=== PATIENT | female | born 1940 | race Caucasian/White ===

== ENCOUNTER → 2017-12-04 11:20 | Outpatient (CLI) | payer MEDICARE, BC, SELFPAY ==
[2017-12-04 12:58] LABS: Absolute Lymphocyte Count 1.28 X10^3/ul (0.83-4.51); Absolute Neutrophil Count 3.3 X10^3/uL (2.0-7.7); Basophil# 0.04 X10^3/uL; Basophil% 0.8 % (0-1); Eosinophil# 0.02 X10^3/uL; Eosinophils% 0.4 % (0-5); Hemoglobin 12.2 g/dl (12.0-15.0); Lymphocyte # 1.28 X10^3/ul (4.0); Lymphocyte % 25.3 % (19-41); Mean Corp Hgb Conc 33.9 g/gl (32-36); Mean Corpuscular Hgb 31.6 pg (27.0-32.0); Mean Corpuscular Volume 93.3 fL (81-99); Mean Platelet Vol. 10.7 fl (6.2-12.0); Monocyte# 0.38 X10^3/uL; Monocyte% 7.5 % (0-10); Neutrophil # 3.34 X10^3/uL (2.7-7.7); POSITIVE COUNT NO; POSITIVE DIFFERENTIAL NO; POSITIVE MORPHOLOGY NO; Platelet Count 183 K/mm3 (150-450); RBC Distribution Width CV 12.9 % (11.6-14.6); Red Blood Count 3.86 M/mm3 (4.2-5.4); White Blood Count 5.1 K/mm3 (4.4-11.0)
[2017-12-04 13:22] LABS: ALB/GLOB Ratio 1.2 RATIO (0.9-2.4); AST(SGOT) 27 U/L (15-37); Alanine Aminotransfer ALT/SGPT 28 U/L (13-56); Albumin, Serum 3.7 g/dL (3.2-5.0); Alkaline Phosphatase 77 U/L (45-117); Anion Gap 7 (5-15); BUN 27 mg/dL (7-18); BUN/Creat Ratio 37.9 RATIO (10-20); Calcium,Total 8.6 mg/dL (8.5-10.1); Chloride 105 mmol/L (98-107); Creatinine, Serum 0.71 mg/dL (0.55-1.02); EST Glomerular Filtration Rate 84 mL/min (>60); Est Glom Filt Rate - Afr Amer 102 mL/min (>60); Globulin 3.2 g/dL (2.2-4.2); Glucose 74 mg/dL (74-106); Potassium 3.7 mmol/L (3.5-5.1); Protein, Total 6.9 g/dL (6.4-8.2); Sodium Level 140 mmol/L (136-145); Thyroid Stim Hormone (TSH) 0.71 uIU/mL (0.358-3.74)
[2017-12-05 08:56] LABS: Vitamin D,25 Hydroxy 20.8 ng/mL (29.95-100.01)
== END ==
PROVIDERS: Family Provider Family Medicine Geriatric Medicine; PCP Family Medicine Geriatric Medicine; Visit Provider Family Medicine Geriatric Medicine
DX: I10 Essential (primary) hypertension (principal); E55.9 Vitamin D deficiency, unspecified
CPT/HCPCS: 36415; 80053; 82306; 84443; 85025

== ENCOUNTER → 2017-12-21 12:01 | Outpatient (CLI) | payer MEDICARE, BC, SELFPAY ==
--- NOTE | 2017-12-21 12:11 | RAD_ITS ---
STUDY: X-RAY CHEST REASON FOR EXAM: Female, 77 years old. Chest pain TECHNIQUE: PA and lateral views of the chest. COMPARISON: Prior study of February 17, 2015 FINDINGS: The lungs are clear and expanded. There is no demonstrated pleural abnormality. Normal size heart. Normal mediastinum and kwesi. Normal visualized pulmonary arteries. Normal visualized aortic arch and descending thoracic aorta. There are diffuse degenerative changes of the visualized thoracic spine. Normal visualized ribs, clavicles, and shoulders. There is no demonstrated abnormality of the visualized soft tissue structures of the upper abdomen. RAD/Chest PA and Lateral IMPRESSION: Mild thoracolumbar dextroscoliosis. Mild degenerative changes of the thoracic spine. No acute cardiopulmonary disease process is seen. Electronically Signed: Ernst Ivey MD at 21:14 EDT , Service support ,
[2017-12-21] MEDS: 0.9% Normal Saline 1,000 ML 999 ML IV ×2 (13:00→14:19)
[2017-12-21 13:47] VITALS: BP 109/75; PULSE 83; RESP 16; TEMP 36.8; O2SAT 99
== END ==
PROVIDERS: Family Provider Family Medicine Geriatric Medicine; PCP Family Medicine Geriatric Medicine; Visit Provider Family Medicine Geriatric Medicine
DX: E86.0 Dehydration (principal); R07.9 Chest pain, unspecified; R68.83 Chills (without fever)
CPT/HCPCS: 96360; 96361; 71046; 87633; J7030

== ENCOUNTER → 2017-12-25 11:42 | Outpatient (CLI) | payer MEDICARE, BC, SELFPAY ==
[2017-12-25 13:29] LABS: Absolute Lymphocyte Count 1.46 X10^3/ul (0.83-4.51); Absolute Neutrophil Count 4.8 X10^3/uL (2.0-7.7); Basophil# 0.01 X10^3/uL; Basophil% 0.1 % (0-1); Hematocrit 35.4 % (37-47); Hemoglobin 11.4 g/dl (12.0-15.0); Lymphocyte # 1.46 X10^3/ul (4.0); Lymphocyte % 21.2 % (19-41); Mean Corp Hgb Conc 32.2 g/gl (32-36); Mean Corpuscular Volume 93.2 fL (81-99); Mean Platelet Vol. 10.5 fl (6.2-12.0); Monocyte# 0.64 X10^3/uL; Monocyte% 9.3 % (0-10); Neutrophil # 4.76 X10^3/uL (2.7-7.7); Neutrophil % 69.3 % (47-70); Platelet Count 226 K/mm3 (150-450); RBC Distribution Width CV 13.9 % (11.6-14.6); RBC Distribution Width SD 47.5 fl (35.1-43.9); White Blood Count 6.9 K/mm3 (4.4-11.0)
[2017-12-25 13:30] LABS: POSITIVE COUNT NO; POSITIVE DIFFERENTIAL NO; POSITIVE MORPHOLOGY NO
[2017-12-25 13:57] LABS: ALB/GLOB Ratio 0.9 RATIO (0.9-2.4); AST(SGOT) 37 U/L (15-37); Alanine Aminotransfer ALT/SGPT 57 U/L (13-56); Albumin, Serum 3.4 g/dL (3.2-5.0); Alkaline Phosphatase 73 U/L (45-117); Anion Gap 11 (5-15); BUN 20 mg/dL (7-18); BUN/Creat Ratio 22.6 RATIO (10-20); Calcium,Total 8.6 mg/dL (8.5-10.1); Chloride 103 mmol/L (98-107); Creatinine, Serum 0.88 mg/dL (0.55-1.02); EST Glomerular Filtration Rate 66 mL/min (>60); Est Glom Filt Rate - Afr Amer 80 mL/min (>60); Globulin 3.6 g/dL (2.2-4.2); Glucose 117 mg/dL (74-106); Potassium 3.2 mmol/L (3.5-5.1); Sodium Level 141 mmol/L (136-145); Thyroid Stim Hormone (TSH) 1.06 uIU/mL (0.358-3.74)
[2017-12-26 08:28] LABS: Vitamin D,25 Hydroxy 22.9 ng/mL (29.95-100.01)
== END ==
PROVIDERS: Family Provider Family Medicine Geriatric Medicine; PCP Family Medicine Geriatric Medicine; Visit Provider Family Medicine Geriatric Medicine
DX: N39.0 Urinary tract infection, site not specified (principal); I10 Essential (primary) hypertension; E55.9 Vitamin D deficiency, unspecified
CPT/HCPCS: 36415; 80053; 82306; 84443; 85025; 87086

== ENCOUNTER → 2017-12-25 11:55 | Outpatient (CLI) | payer MEDICARE, BC, SELFPAY ==
--- NOTE | 2017-12-25 11:58 | CT_ITS ---
STUDY: CT BRAIN WITHOUT CONTRAST REASON FOR EXAM: Female, 77 years old. Delirium. Orbital pain. RADIATION DOSAGE (If Supplied By Facility): CTDIvol = ( 44.99 ) mGy, DLP = ( 779.24 ) mGycm TECHNIQUE: Transaxial CT imaging of the brain was performed without administration of intravenous contrast material. Individualized dose optimization techniques were used for this CT. COMPARISON: None. FINDINGS: Normal soft tissue structures. Normal calvarium. There is mild cerebral atrophy with widening of the extra-axial spaces and ventricular dilatation. There are areas of decreased attenuation within the white matter tracts of the supratentorial brain, consistent with microvascular disease changes. Old small bilateral lacunar infarcts of the basal ganglia. Normal brainstem. Normal cerebellum. There is no intracranial hemorrhage. There are no findings of an acute ischemic infarction. Atherosclerotic calcification of the vertebral arteries and cavernous portions of the internal carotid arteries bilaterally. Normal visualized paranasal sinuses. Prior right lens implants. Mild mucosal thickening of the right maxillary sinus. CT/Brain/Head without Contrast IMPRESSION: Chronic involutional changes of the brain. Electronically Signed: Jani Bardales MD at 12:26 EDT Tel [phone], Service support ,
== END ==
PROVIDERS: Family Provider Family Medicine Geriatric Medicine; PCP Family Medicine Geriatric Medicine; Visit Provider Family Medicine Geriatric Medicine
DX: R41.0 Disorientation, unspecified (principal); N39.0 Urinary tract infection, site not specified; I10 Essential (primary) hypertension; E55.9 Vitamin D deficiency, unspecified
CPT/HCPCS: 36415; 70450; 80053; 82306; 84443; 85025; 87086

== ENCOUNTER → 2018-01-04 11:24 | Outpatient (CLI) | payer MEDICARE, BC, SELFPAY ==
[2018-01-04 13:06] LABS: Anion Gap 9 (5-15); BUN 27 mg/dL (7-18); Chloride 105 mmol/L (98-107); Creatinine, Serum 1.08 mg/dL (0.55-1.02); EST Glomerular Filtration Rate 52 mL/min (>60); Est Glom Filt Rate - Afr Amer 63 mL/min (>60); Glucose 105 mg/dL (74-106); Potassium 4.1 mmol/L (3.5-5.1); Sodium Level 140 mmol/L (136-145)
== END ==
PROVIDERS: Family Provider Family Medicine Geriatric Medicine; PCP Family Medicine Geriatric Medicine; Visit Provider Family Medicine Geriatric Medicine
DX: E87.6 Hypokalemia (principal)
CPT/HCPCS: 36415; 80048

== ENCOUNTER 2018-07-22 17:54 | Observation (INO) | payer MEDICARE, BC, SELFPAY ==
[2018-07-22] VITALS (8 sets, daily range): BP systolic 105–155; BP diastolic 69–95; PULSE 53–77; RESP 15–24; TEMP 36.2–36.4; O2SAT 98–99; BMI 22.6; BMI 22.8
--- NOTE | 2018-07-22 17:58 | EKG12_ITS ---
Test Reason : Blood Pressure : / mmHG Vent. Rate : 054 BPM Atrial Rate : 054 BPM P-R Int : 156 ms QRS Dur : 086 ms QT Int : 416 ms P-R-T Axes : 048 017 064 degrees QTc Int : 394 ms Sinus bradycardia Otherwise normal ECG Confirmed by GENE PETTIT, PADMINI ([id number]), editorial director SARAH AGUDELO ([id number] on 07/24/2018 1:56:50 PM Referred By: THA Confirmed By:PADMINI IMLLS MD
[2018-07-22 18:27] LABS: Absolute Lymphocyte Count 1.84 X10^3/ul (0.83-4.51); Absolute Neutrophil Count 1.9 X10^3/uL (2.0-7.7); Basophil# 0.04 X10^3/uL; Basophil% 0.9 % (0-1); Eosinophil# 0.05 X10^3/uL; Eosinophils% 1.2 % (0-5); Hematocrit 37.2 % (37-47); Lymphocyte # 1.84 X10^3/ul (4.0); Lymphocyte % 43.5 % (19-41); Mean Corp Hgb Conc 32.3 g/gl (32-36); Mean Corpuscular Hgb 30.1 pg (27.0-32.0); Mean Corpuscular Volume 93.2 fL (81-99); Monocyte# 0.42 X10^3/uL; Monocyte% 9.9 % (0-10); Neutrophil # 1.88 X10^3/uL (2.7-7.7); Neutrophil % 44.5 % (47-70); POSITIVE COUNT NO; POSITIVE DIFFERENTIAL NO; POSITIVE MORPHOLOGY NO; Platelet Count 216 K/mm3 (150-450); RBC Distribution Width CV 13.4 % (11.6-14.6); RBC Distribution Width SD 45.7 fl (35.1-43.9); Red Blood Count 3.99 M/mm3 (4.2-5.4); White Blood Count 4.2 K/mm3 (4.4-11.0)
[2018-07-22 18:34] LABS: International Normalized Ratio 0.9; Prothrombin Time (Protime)PT. 11.8 SECONDS (11.7-14.9)
--- NOTE | 2018-07-22 18:40 | RAD_ITS ---
STUDY: X-RAY CHEST REASON FOR EXAM: Female, 78 years old. Chest pain TECHNIQUE: Frontal view of the chest COMPARISON: 04/23/2018 FINDINGS: The lungs are clear. There are no pleural effusions. There is no pneumothorax. The heart is normal in size. The visualized osseous structures are within normal limits. RAD/Chest 1 View (Portable) IMPRESSION: No acute thoracic pathology. Electronically Signed: Jonh Singh, at 19:11 EST Tel , Service support ,
[2018-07-22 18:48] LABS: Anion Gap 11 (5-15); BUN 21 mg/dL (7-18); BUN/Creat Ratio 27.2 RATIO (10-20); Calcium,Total 9.6 mg/dL (8.5-10.1); Chloride 101 mmol/L (98-107); Creatinine, Serum 0.77 mg/dL (0.55-1.02); EST Glomerular Filtration Rate 77 mL/min (>60); Est Glom Filt Rate - Afr Amer 93 mL/min (>60); Glucose 83 mg/dL (74-106); Potassium 3.4 mmol/L (3.5-5.1); Sodium Level 142 mmol/L (136-145)
[2018-07-22] MEDS: Aspirin 81 MG TAB.CHEW 162 MG PO (19:12)
--- NOTE | 2018-07-22 19:37 | ED.VISSUMM ---
- ER Visit Summary Date of Service: 07/22/18 Chief Complaint: Chest pain History of Present Illness: The patient is a 78 F chest pain 30 minutes prior to arrival states felt like heartburn.. No radicular symptoms. Dyspnea lightheaded symptoms. Symptoms currently resolved stress test in 2014. History of hypertension. No tobacco history. No diabetes or hypercholesteremia. History of GERD, depression, fibromyalgia. States has trouble urinating at times. No dysuria. Currently symptom-free Physical Examination: General: Alert and oriented ?3, no acute distress HEENT: Normocephalic, atraumatic. Moist mucosa membranes Neck: supple, nontender. Cardiovascular: Regular rate and rhythm, no murmurs Respiratory: Normal breath sounds, symmetric, no distress Abdomen: Soft, nontender, nondistended Extremities: Nontender, no edema, pulses intact ?4 Neuro: no focal neurological deficits. Test Results: EKG sinus rate of [address] or T wave changes Hemoccult 12. Potassium 2.4. Troponin negative. UA pending. Chest x-ray negative. Emergency Department Course and Treatment: Patient symptom-free. Aspirin given. Cardiac workup negative potassium was 3.4 orally replaced. She is alert and oriented x3. Symptoms continue resolved. Heart score is 4, HILLARY score 1. Discussed with hospitalist Dr. Whitmore for admission. Treatment Plan: [] Disposition: Admission Impression: 1. Acute chest pain 2. Hypokalemia This note was generated with Nabto dictation software. It may contain incorrect words, spelling, and punctuation that were not noted in review of the chart prior to signing ED Disposition - Plan for ED Patient: Disposition: Acute Care Hospital [facility] Diagnosis: Chest pain, Hypokalemia Referrals: Rashid James Chi, MD [Primary Care Provider] -
[2018-07-22 19:40] LABS: Bacteria 0 SEEN /hpf (None Seen); Mucous, Urine 0 SEEN /hpf (<or=2+); Red Blood Cells-Urine 0 SEEN /hpf (0-5)
[2018-07-22 19:43] LABS: Color, Urine Yellow (Yellow); Glucose, Dipstick Normal (Normal); Ketone-Dipstick Negative (Negative); Leukocyte Esterase-Dipstick 100 /ul (Negative); Nitrite-Dipstick Negative (Negative); Occult Blood-Urine Negative /ul (Negative); Protein-Dipstick Negative (Negative); Urine Bilirubin Dipstick Negative (Negative); Urine Urobilinogen Normal (Normal)
[2018-07-22 19:51] LABS: Squamous Epithelial Cells - UA 0-5 SEEN /hpf (5-10); Urine Clarity Sl Cldy (Clear); White Blood Cells 5-10 SEEN /hpf (0-5)
--- NOTE | 2018-07-22 19:59 | HP.PCM_ITS ---
Problem List (1) Hypokalemia Status: Acute (2) Chest pain Status: Acute (3) HTN (hypertension) Status: Chronic (4) Depression Status: Chronic History of Present Illness Date of Admission: 07/22/18 Chief Complaint: chest pain The patient is a 78 year old female patient with a past medical history of hypertension presents to the ER with chest pain. Onset occurred earlier in the evening and was midsternal non radiating and described as significant pain. She has had some associated lightheadedness and dizziness. She is currently chest pain free. Last stress test was done in 2014 and was negative. She will be admitted for observation and cardiac workup. Past Medical History Past Medical History (Chronic Problems): Chronic Problems HTN (hypertension) (Chronic) Depression (Chronic) Allergies No Known Allergies Allergy (Verified 07/22/18 19:21) Home Medications: Ambulatory Orders Medication Instructions Recorded Cholecalciferol (VIT D3) [Vitamin 1,000 unit PO DAILY 02/17/15 D3] Lisinopril [Zestril] 10 mg PO DAILY 02/17/15 Oxybutynin [Ditropan] 10 mg PO DAILY 02/17/15 [place]-3 Fatty Acids/Fish Oil [Fish 1 each PO DAILY 05/06/15 Oil 1,000 mg Capsule] Fluoxetine HCl 10 mg PO DAILY 07/22/18 Surgical History: herniorrhaphy Psychiatric History: Depression Smoking Status: Never smoker - *Family History Paternal History Items: No pertinent history - of old age Maternal History Items: Dementia Review of Systems Constitutional: Denies: Chills, Fever, Weight Change HEENT: Denies: Head Aches, Sinus Congestion, Sinus Drainage Cardiovascular: Reports: Chest Pain. Denies: Palpitations Respiratory: Denies: Cough, Shortness of breath at rest, Sputum production Gastrointestinal: Denies: Abdominal Pain, Nausea, Vomiting Genitourinary: Denies: Dysuria Musculoskeletal: Denies: Joint Pain, Joint Tenderness Skin: Denies: Rash, Wounds Neurological: Denies: Numbness, Tingling, Focal weakness Psychiatric: Denies: Anxiety, Depression, Homicidal Ideations, Suicidal Ideations Hematologic/ Lymphatic: Denies: Easy Bruising, Easy Bleeding VTE Information - Inpt Only VTE Present on Admission: No VTE Mechan Device Prophylaxis: None VTE Pharm Prophylaxis ordered?: Yes Patient Problems: Active and Suspected Problems Hypokalemia (Acute) Chest pain (Acute) - Physical Exam General: Alert, Oriented x3, Cooperative HEENT: Atraumatic, Normocephalic Neck: Supple, Negative Carotid Bruits Lungs: Clear to auscultation, Normal air movement Cardiovascular: Regular rate, Regular Rhythm, Normal S1, Normal S2, No murmurs Abdomen: Bowel Sounds Present, Soft, Non Tender Extremities: No edema, Capillary Refill Less than 3 Seconds Skin: No rashes Musculoskeletal: No Tenderness to Palpation of Joints or Extremities Neurological: Neuro grossly intact Psych/Mental Status: Normal Affect, Appropriate Vital Signs Temp Pulse Resp BP Pulse Ox 97.2 F L 73 24 H 153/94 H 98 07/22/18 17:55 07/22/18 19:13 07/22/18 19:13 07/22/18 19:13 07/22/18 19:13 Oxygen Flow Rate (L/min) 2 Oxygen Delivery Method Room Air Weight: 116 lb Body Mass Index (BMI) 22.6 Laboratory Tests Past 24 Hrs 07/22/18 07/22/18 07/22/18 18:15 18:15 18:15 WBC 4.2 L RBC 3.99 L Hgb 12.0 Hct 37.2 MCV 93.2 MCH 30.1 MCHC 32.3 RDW 13.4 RDW Differential 45.7 H Plt Count 216 MPV 10.0 Immature Gran % (Auto) 0.000 Neut % (Auto) 44.5 L Lymph % (Auto) 43.5 H [place] % (Auto) 9.9 Eos % (Auto) 1.2 Baso % (Auto) 0.9 Absolute Neuts (auto) 1.9 L Absolute Lymphs (auto) 1.84 Total Counted Not Reportable PT 11.8 INR 0.9 Sodium 142 Potassium 3.4 L Chloride 101 Carbon Dioxide 30.0 Anion Gap 11 BUN 21 H Creatinine 0.77 Estim Creat Clear Calc 33.30 Est GFR (MDRD) Af Amer 93 Est GFR (MDRD) Non-Af 77 BUN/Creatinine Ratio 27.2 H Glucose 83 Calcium 9.6 Troponin I < 0.015 Urine Color Urine Clarity Urine pH Ur Specific [place] Urine Protein Urine Glucose (UA) Urine Ketones Urine Occult Blood Urine Nitrite Urine Bilirubin Urine Urobilinogen Ur Leukocyte Esterase Urine RBC Urine WBC Ur Squamous Epith Cells Urine Bacteria Urine Mucus 07/22/18 19:25 WBC RBC Hgb Hct MCV MCH MCHC RDW RDW Differential Plt Count MPV Immature Gran % (Auto) Neut % (Auto) Lymph % (Auto) [place] % (Auto) Eos % (Auto) Baso % (Auto) Absolute Neuts (auto) Absolute Lymphs (auto) Total Counted PT INR Sodium Potassium Chloride Carbon Dioxide Anion Gap BUN Creatinine Estim Creat Clear Calc Est GFR (MDRD) Af Amer Est GFR (MDRD) Non-Af BUN/Creatinine Ratio Glucose Calcium Troponin I Urine Color Yellow Urine Clarity Sl Cldy Urine pH 7.0 Ur Specific [place] 1.010 Urine Protein Negative Urine Glucose (UA) Normal Urine Ketones Negative Urine Occult Blood Negative Urine Nitrite Negative Urine Bilirubin Negative Urine Urobilinogen Normal Ur Leukocyte Esterase 100 H Urine RBC 0 SEEN Urine WBC 5-10 SEEN Ur Squamous Epith Cells 0-5 SEEN Urine Bacteria 0 SEEN Urine Mucus 0 SEEN Assessment/Plan All Active Problems Hypokalemia (Acute) Chest pain (Acute) Chronic Problems HTN (hypertension) (Chronic) Depression (Chronic) Plan 1. Chest Pain-- admit for observation to PCU, cycle cardiac enzymes, nuclear stress test in am. Morphine, oxygen and nitroglycerin per routine 2. GERD-- cont PPI 3. Depression -- continue routine medication 4. DVT prophylaxis-- LMWH Code Visit OBSV E&M: 55294 Initial observation care L2
[2018-07-22] MEDS: Omega-3 Acid Ethyl Esters 1 GM Capsule PO (23:14)
[2018-07-23] VITALS (7 sets, daily range): BP systolic 110–137; BP diastolic 54–68; PULSE 54–89; RESP 16–18; TEMP 36.2–37; O2SAT 95–97
[2018-07-23 05:25] LABS: Mean Corp Hgb Conc 32.4 g/gl (32-36); Mean Corpuscular Hgb 30.5 pg (27.0-32.0); Mean Corpuscular Volume 94.2 fL (81-99); Mean Platelet Vol. 10.3 fl (6.2-12.0); Platelet Count 192 K/mm3 (150-450); RBC Distribution Width CV 13.1 % (11.6-14.6); RBC Distribution Width SD 43.3 fl (35.1-43.9); Red Blood Count 3.61 M/mm3 (4.2-5.4); White Blood Count 4.3 K/mm3 (4.4-11.0)
[2018-07-23 05:26] LABS: Scan Indicated on CBC? Y/N NO
[2018-07-23 05:27] LABS: International Normalized Ratio 0.9; Prothrombin Time (Protime)PT. 12.5 SECONDS (11.7-14.9)
[2018-07-23 05:28] LABS: Partial Thromboplast Time 29.8 Seconds (24.1-36.2)
[2018-07-23 05:35] LABS: AST(SGOT) 24 U/L (15-37); Alanine Aminotransfer ALT/SGPT 27 U/L (13-56); Albumin, Serum 3.1 g/dL (3.2-5.0); Alkaline Phosphatase 74 U/L (45-117); Anion Gap 8 (5-15); BUN 21 mg/dL (7-18); Calcium,Total 8.5 mg/dL (8.5-10.1); Chloride 107 mmol/L (98-107); Cholesterol 194 mg/dL (200); EST Glomerular Filtration Rate 86 mL/min (>60); Est Glom Filt Rate - Afr Amer 104 mL/min (>60); Estimated Creatinine Clearance 37.55 ml/min; Globulin 3.1 g/dL (2.2-4.2); Glucose 86 mg/dL (74-106); High Density Lipoprotein 82 mg/dL; Potassium 4.1 mmol/L (3.5-5.1); Protein, Total 6.2 g/dL (6.4-8.2); Sodium Level 143 mmol/L (136-145); Triglycerides 55 mg/dL; Very Low Density Lipoprotein 11 mg/dL (5-40)
--- NOTE | 2018-07-23 05:55 | EKG12_ITS ---
Test Reason : AM EKG Blood Pressure : / mmHG Vent. Rate : 054 BPM Atrial Rate : 054 BPM P-R Int : 166 ms QRS Dur : 084 ms QT Int : 420 ms P-R-T Axes : 047 025 043 degrees QTc Int : 398 ms Sinus bradycardia Otherwise normal ECG When compared with ECG of 22-JUL-2018 20:45, MANUAL COMPARISON REQUIRED, DATA IS UNCONFIRMED Confirmed by GENE PETTIT, PADMINI ([id number]), editor publications SARAH AGUDELO ([id number]) on 07/24/2018 2:09:31 PM Referred By: EDUARDO YOUNGBLOOD Confirmed By:PADMINI MILLS MD
[2018-07-23] MEDS: Lisinopril 10 MG Tablet PO (06:26)
[2018-07-23] MEDS: Aspirin E.C. 81 MG Tablet PO (06:26)
[2018-07-23] MEDS: 0.9% NaCl Peripheral Flush Adult/Peds IV (06:26)
--- NOTE | 2018-07-23 08:57 | STRESSREP ---
Stress Test Report Exercise myocardial perfusion stress test. 78-year-old lady with a history of chest pain. Medications aspirin, lisinopril, Protonix. Stress protocol: Resting EKG demonstrates sinus bradycardia with a rate of 53 bpm resting blood pressure 128/74 mmHg. The patient exercised according to regular [place] protocol for total duration of 4 minutes and 30 seconds the maximum heart rate attained was 141 bpm which was 99% of maximum predicted heart rate the maximum workload was 6.4 metabolic equivalents. At rest there were no ST or T wave changes noted suggest ischemia peak exercise upsloping ST changes only were noted with normally the criteria for ischemia. Resting blood pressure 128/74 with a peak blood pressure 142/88. Myocardial perfusion protocol. 11.2 mCi of technetium 99m sestamibi was injected at rest. Patient exercised for 4-1/2 minutes at peak exercise 32.1 mCi of technetium 99m sestamibi was injected stress images were obtained stress and rest images were reconstructed and compared in the short axis vertical long horizontal long axis. Gated images were also obtained next Perfusion SPECT analysis: Review of the stress images demonstrate normal uptake of tracer noted in all areas of the myocardium. The resting images similarly demonstrate normal uptake of tracer noted in all areas of the myocardium. No reversibility is noted suggest ischemia no previous infarct is noted. Gated SPECT analysis: The gated ejection fraction is noted to be 77% per next Conclusion: Normal exercise myocardial perfusion stress test at a moderate workload. Preserved ejection fraction.
[2018-07-23] MEDS: Enoxaparin 40 MG/0.4 ML Syringe SC (09:27)
[2018-07-23] MEDS: Tolterodine Tartrate 2 MG CAP.SA PO (09:27)
[2018-07-23] MEDS: FLUoxetine 10 MG Capsule PO (09:27)
[2018-07-23] MEDS: Pantoprazole Sodium 40 MG Tablet PO (09:27)
[2018-07-23] MEDS: Omega-3 Acid Ethyl Esters 1 GM Capsule PO (09:28)
--- NOTE | 2018-07-23 10:55 | PCM.DC ---
- Discharge Diagnoses Current Active Problems: Current Active and Chronic Problems Hypokalemia (Acute) Chest pain (Acute) You will use the following diet at home:: No restrictions Discharge Activity: Return to Normal Activity Call your doctor if you observe: Shortness of breath, Dizziness, Fainting spells, Chest pain Additional Instructions: You were started on zantac in addition to your omeprazole due to uncontrolled acid reflux. This can be increased in dosage by primary care physician if still not effective. You can take tylenol or ibuprofen over the counter for musculoskeletal chest discomfort. Allergies/Adverse Reactions: Allergies No Known Allergies Allergy (Verified 07/22/18 19:21) Medications to take at Discharge Cholecalciferol (VIT D3) [Vitamin D3] 5,000 unit PO DAILY 02/17/15 Lisinopril [Zestril] 10 mg PO DAILY 02/17/15 Oxybutynin [Ditropan] 10 mg PO DAILY 02/17/15 [place]-3 Fatty Acids/Fish Oil [Fish Oil 1,000 mg Capsule] 1 each PO BID 05/06/15 Fluoxetine HCl 10 mg PO DAILY 07/22/18 Omeprazole 40 mg PO DAILY 07/22/18 Ranitidine HCl [Zantac 75] 75 mg PO DAILY #30 tablet 07/23/18 The following prescriptions were given: Ranitidine HCl [Zantac 75] 75 mg PO DAILY #30 tablet Primary Care Physician: Rashid James Chi, MD [Primary Care Provider] - Please follow up with your Primary Care Physician in: 1 Week Test Results: Test results from this visit will be discussed in further detail at your follow-up appointment, if applicable. Proposed Discharge Date: 07/23/18
--- NOTE | 2018-07-23 10:59 | DCINST_ITS ---
- Discharge Diagnoses Current Active Problems: Current Active and Chronic Problems Hypokalemia (Acute) Chest pain (Acute) You will use the following diet at home:: No restrictions Discharge Activity: Return to Normal Activity Call your doctor if you observe: Shortness of breath, Dizziness, Fainting spells, Chest pain Additional Instructions: You were started on zantac in addition to your omeprazole due to uncontrolled acid reflux. This can be increased in dosage by primary care physician if still not effective. You can take tylenol or ibuprofen over the counter for musculoskeletal chest discomfort. Allergies/Adverse Reactions: Allergies No Known Allergies Allergy (Verified 07/22/18 19:21) Medications to take at Discharge Cholecalciferol (VIT D3) [Vitamin D3] 5,000 unit PO DAILY 02/17/15 Lisinopril [Zestril] 10 mg PO DAILY 02/17/15 Oxybutynin [Ditropan] 10 mg PO DAILY 02/17/15 [place]-3 Fatty Acids/Fish Oil [Fish Oil 1,000 mg Capsule] 1 each PO BID 05/06/15 Fluoxetine HCl 10 mg PO DAILY 07/22/18 Omeprazole 40 mg PO DAILY 07/22/18 Ranitidine HCl [Zantac 75] 75 mg PO DAILY #30 tablet 07/23/18 The following prescriptions were given: Ranitidine HCl [Zantac 75] 75 mg PO DAILY #30 tablet Primary Care Physician: Rashid James Chi, MD [Primary Care Provider] - Please follow up with your Primary Care Physician in: 1 Week Test Results: Test results from this visit will be discussed in further detail at your follow- up appointment, if applicable. Proposed Discharge Date: 07/23/18
--- NOTE | 2018-07-23 11:09 | DS.PCM_ITS ---
<Kamila Jernigan - Last Filed: 07/23/18 11:11> Discharge Date and Diagnosis - Problem List Patient Problems: Active and Suspected Problems Chest pain (Acute) Date of Admission: 07/22/18 Date of Discharge: 07/23/18 - Primary Discharge Diagnosis Active and Suspected Problems 1. Musculoskeletal chest pain vs uncontrolled GERD- ACS ruled out 2. GERD 3. Hypertension 4. Depression - Secondary Discharge Diagnosis Chronic Problems HTN (hypertension) (Chronic) Depression (Chronic) Hospital Course and Treatment Imaging Results: Diagnostic Data Chest X-Ray 07/22/18 18:40 IMPRESSION: No acute thoracic pathology. Electronically Signed: Jonh Singh, at 19:11 EST Tel , Service support , Operations: None Procedures: Stress test Summary of Care Provided: The patient is a 78 year old F admitted 07/22/18 due to chest pain. 1. Musculoskeletal chest pain vs uncontrolled GERD- ACS ruled out. Troponin negative. EKG without ST-T changes. Chest x-ray negative. Patient underwent nuclear stress test which was negative for ischemia. Patient has tenderness to palpation of the center of the chest. Suspect pain is musculoskeletal in nature. Instructed patient she can use Tylenol or ibuprofen as needed for pain. Patient also reports she has had difficulty with acid reflux. She states she is on omeprazole 40 mg once daily and it does not work. Added Zantac 75 mg daily to home regimen. This can be increased on an outpatient basis. If effective, can discontinue PPI. Follow-up with primary care physician in 1 week. 2. GERD-continue PPI, Zantac added as noted above. 3. Hypertension-stable, continue home lisinopril regimen. 4. Depression-continue fluoxetine regimen. General: Alert, Oriented x3, Cooperative HEENT: Atraumatic, Normocephalic Neck: Supple, Negative Carotid Bruits Lungs: Clear to auscultation, Normal air movement Cardiovascular: Regular rate, Regular Rhythm, Normal S1, Normal S2, No murmurs Abdomen: Bowel Sounds Present, Soft, Non Tender Extremities: No edema, Capillary Refill Less than 3 Seconds Skin: No rashes Musculoskeletal: No Tenderness to Palpation of Joints or Extremities Neurological: Neuro grossly intact Psych/Mental Status: Normal Affect, Appropriate Patient seen and examined prior to discharge. Physical assessment as noted above. Patient is stable for discharge with follow up recommendations as noted above. This patient was seen by CHUCKIE Muniz under the supervision of Dr. Singh. Patient Problems: Active and Suspected Problems Chest pain (Acute) - Physical Exam Vital Signs Temp Pulse Resp BP Pulse Ox 97.8 F 59 L 16 110/65 97 07/23/18 09:23 07/23/18 09:23 07/23/18 09:23 07/23/18 09:23 07/23/18 09:23 Oxygen Flow Rate (L/min) 2 Oxygen Delivery Method Room Air Weight: 113 lb 1.554 oz Body Mass Index (BMI) 22.8 Intake and Output for Last 24 Hours 07/21/18 07/22/18 07/23/18 23:59 23:59 23:59 Intake Total 360 / 360 Balance 360 / 360 Laboratory Tests Past 24 Hrs 07/22/18 07/22/18 07/22/18 18:15 18:15 18:15 WBC 4.2 L RBC 3.99 L Hgb 12.0 Hct 37.2 MCV 93.2 MCH 30.1 MCHC 32.3 RDW 13.4 RDW Differential 45.7 H Plt Count 216 MPV 10.0 Immature Gran % (Auto) 0.000 Neut % (Auto) 44.5 L Lymph % (Auto) 43.5 H [place] % (Auto) 9.9 Eos % (Auto) 1.2 Baso % (Auto) 0.9 Absolute Neuts (auto) 1.9 L Absolute Lymphs (auto) 1.84 Total Counted Not Reportable PT 11.8 INR 0.9 APTT Sodium 142 Potassium 3.4 L Chloride 101 Carbon Dioxide 30.0 Anion Gap 11 BUN 21 H Creatinine 0.77 Estim Creat Clear Calc 33.30 Est GFR (MDRD) Af Amer 93 Est GFR (MDRD) Non-Af 77 BUN/Creatinine Ratio 27.2 H Glucose 83 Calcium 9.6 Total Bilirubin AST ALT Alkaline Phosphatase Troponin I < 0.015 Total Protein Albumin Globulin Albumin/Globulin Ratio Triglycerides Cholesterol LDL Cholesterol VLDL Cholesterol HDL Cholesterol Urine Color Urine Clarity Urine pH Ur Specific [place] Urine Protein Urine Glucose (UA) Urine Ketones Urine Occult Blood Urine Nitrite Urine Bilirubin Urine Urobilinogen Ur Leukocyte Esterase Urine RBC Urine WBC Ur Squamous Epith Cells Urine Bacteria Urine Mucus 07/22/18 07/22/18 07/23/18 19:25 20:47 00:10 WBC RBC Hgb Hct MCV MCH MCHC RDW RDW Differential Plt Count MPV Immature Gran % (Auto) Neut % (Auto) Lymph % (Auto) [place] % (Auto) Eos % (Auto) Baso % (Auto) Absolute Neuts (auto) Absolute Lymphs (auto) Total Counted PT INR APTT Sodium Potassium Chloride Carbon Dioxide Anion Gap BUN Creatinine Estim Creat Clear Calc Est GFR (MDRD) Af Amer Est GFR (MDRD) Non-Af BUN/Creatinine Ratio Glucose Calcium Total Bilirubin AST ALT Alkaline Phosphatase Troponin I < 0.015 < 0.015 Total Protein Albumin Globulin Albumin/Globulin Ratio Triglycerides Cholesterol LDL Cholesterol VLDL Cholesterol HDL Cholesterol Urine Color Yellow Urine Clarity Sl Cldy Urine pH 7.0 Ur Specific [place] 1.010 Urine Protein Negative Urine Glucose (UA) Normal Urine Ketones Negative Urine Occult Blood Negative Urine Nitrite Negative Urine Bilirubin Negative Urine Urobilinogen Normal Ur Leukocyte Esterase 100 H Urine RBC 0 SEEN Urine WBC 5-10 SEEN Ur Squamous Epith Cells 0-5 SEEN Urine Bacteria 0 SEEN Urine Mucus 0 SEEN 07/23/18 07/23/18 07/23/18 05:00 05:00 05:00 WBC 4.3 L RBC 3.61 L Hgb 11.0 L Hct 34.0 L MCV 94.2 MCH 30.5 MCHC 32.4 RDW 13.1 RDW Differential 43.3 Plt Count 192 MPV 10.3 Immature Gran % (Auto) Neut % (Auto) Lymph % (Auto) [place] % (Auto) Eos % (Auto) Baso % (Auto) Absolute Neuts (auto) Absolute Lymphs (auto) Total Counted PT 12.5 INR 0.9 APTT 29.8 Sodium 143 Potassium 4.1 Chloride 107 Carbon Dioxide 28.0 Anion Gap 8 BUN 21 H Creatinine 0.70 Estim Creat Clear Calc 37.55 Est GFR (MDRD) Af Amer 104 Est GFR (MDRD) Non-Af 86 BUN/Creatinine Ratio 30.0 H Glucose 86 Calcium 8.5 Total Bilirubin 0.30 AST 24 ALT 27 Alkaline Phosphatase 74 Troponin I Total Protein 6.2 L Albumin 3.1 L Globulin 3.1 Albumin/Globulin Ratio 1.0 Triglycerides 55 Cholesterol 194 LDL Cholesterol 101 VLDL Cholesterol 11 HDL Cholesterol 82 Urine Color Urine Clarity Urine pH Ur Specific [place] Urine Protein Urine Glucose (UA) Urine Ketones Urine Occult Blood Urine Nitrite Urine Bilirubin Urine Urobilinogen Ur Leukocyte Esterase Urine RBC Urine WBC Ur Squamous Epith Cells Urine Bacteria Urine Mucus Discharge Diet: No Restrictions Discharge Activity: Return to Normal Activity Call your doctor if you observe: Shortness of breath, Dizziness, Fainting spells, Chest pain Home Medications: Medications to take at Discharge Cholecalciferol (VIT D3) [Vitamin D3] 5,000 unit PO DAILY 02/17/15 Lisinopril [Zestril] 10 mg PO DAILY 02/17/15 Oxybutynin [Ditropan] 10 mg PO DAILY 02/17/15 [place]-3 Fatty Acids/Fish Oil [Fish Oil 1,000 mg Capsule] 1 each PO BID 05/06/15 Fluoxetine HCl 10 mg PO DAILY 07/22/18 Omeprazole 40 mg PO DAILY 07/22/18 Ranitidine HCl [Zantac 75] 75 mg PO DAILY #30 tablet 07/23/18 Following Prescrptions Were Given to Patient: Ranitidine HCl [Zantac 75] 75 mg PO DAILY #30 tablet Primary Care Physician: Rashid James Chi, MD [Primary Care Provider] - Please follow up with your Primary Care Physician in: 1 Week Disposition: Home Minutes spent on discharge:: 35 Patient Condition:: Stable Medical Necessity - Tobacco Use Smoking Status: Never smoker Meaningful Use Info Meaningful Use Diagnoses (Choose all that apply): None applicable <Mitul Singh - Last Filed: 07/23/18 14:55> Discharge Date and Diagnosis - Secondary Discharge Diagnosis Chronic Problems HTN (hypertension) (Chronic) Depression (Chronic) Hospital Course and Treatment Imaging Results: 07/23/18 05:55 Nuclear Stress Test - T[facility] [NM] AM (NON MEDS) Operations: None Procedures: Stress test Summary of Care Provided: Patient seen and examined independently. Data reviewed. I agree with the above note by the nurse practitioner. The patient is a 78 year old F presents with chest pain. Patient is described as midsternal and did not state that it was worse with deep respirations. Patient underwent a stress test today that was negative. Patient does have a known history of hiatal hernia that did have repair back in the 80s or 90s. Inquired if patient had nisin fundoplication, patient was unsure but stated they had to cut. So I started patient that this could be an esophageal spasm if it does not occur more frequently than she can follow-up with gastroenterology for possible endoscopy. [] - Physical Exam General: Alert, No apparent distress HEENT: Atraumatic, Normocephalic Neck: No Nodes, Thyroid Normal Size and Texture Lungs: Clear to auscultation, Normal air movement, No rhonchi, No wheeze Cardiovascular: Regular rate, Regular Rhythm, Normal S1, Normal S2 Abdomen: Bowel Sounds Present, Soft, Non Tender, Non-Distended, No Hepato- splenomegaly Extremities: No edema, No Calf Tenderness Skin: No rashes, No breakdown Psych/Mental Status: Normal Affect, Appropriate Vital Signs Temp Pulse Resp BP Pulse Ox 37.0 C 89 18 137/66 H 95 07/23/18 14:50 07/23/18 14:50 07/23/18 14:50 07/23/18 14:50 07/23/18 14:50 Oxygen Flow Rate (L/min) 2 Oxygen Delivery Method Room Air Weight: 51.3 kg Body Mass Index (BMI) 22.8 Intake and Output for Last 24 Hours 07/21/18 07/22/18 07/23/18 23:59 23:59 23:59 Intake Total 360 / 360 240 / 240 Balance 360 / 360 240 / 240 Laboratory Tests Past 24 Hrs 07/22/18 07/22/18 07/22/18 18:15 18:15 18:15 WBC 4.2 L RBC 3.99 L Hgb 12.0 Hct 37.2 MCV 93.2 MCH 30.1 MCHC 32.3 RDW 13.4 RDW Differential 45.7 H Plt Count 216 MPV 10.0 Immature Gran % (Auto) 0.000 Neut % (Auto) 44.5 L Lymph % (Auto) 43.5 H [place] % (Auto) 9.9 Eos % (Auto) 1.2 Baso % (Auto) 0.9 Absolute Neuts (auto) 1.9 L Absolute Lymphs (auto) 1.84 Total Counted Not Reportable PT 11.8 INR 0.9 APTT Sodium 142 Potassium 3.4 L Chloride 101 Carbon Dioxide 30.0 Anion Gap 11 BUN 21 H Creatinine 0.77 Estim Creat Clear Calc 33.30 Est GFR (MDRD) Af Amer 93 Est GFR (MDRD) Non-Af 77 BUN/Creatinine Ratio 27.2 H Glucose 83 Calcium 9.6 Total Bilirubin AST ALT Alkaline Phosphatase Troponin I < 0.015 Total Protein Albumin Globulin Albumin/Globulin Ratio Triglycerides Cholesterol LDL Cholesterol VLDL Cholesterol HDL Cholesterol Urine Color Urine Clarity Urine pH Ur Specific [place] Urine Protein Urine Glucose (UA) Urine Ketones Urine Occult Blood Urine Nitrite Urine Bilirubin Urine Urobilinogen Ur Leukocyte Esterase Urine RBC Urine WBC Ur Squamous Epith Cells Urine Bacteria Urine Mucus 07/22/18 07/22/18 07/23/18 19:25 20:47 00:10 WBC RBC Hgb Hct MCV MCH MCHC RDW RDW Differential Plt Count MPV Immature Gran % (Auto) Neut % (Auto) Lymph % (Auto) [place] % (Auto) Eos % (Auto) Baso % (Auto) Absolute Neuts (auto) Absolute Lymphs (auto) Total Counted PT INR APTT Sodium Potassium Chloride Carbon Dioxide Anion Gap BUN Creatinine Estim Creat Clear Calc Est GFR (MDRD) Af Amer Est GFR (MDRD) Non-Af BUN/Creatinine Ratio Glucose Calcium Total Bilirubin AST ALT Alkaline Phosphatase Troponin I < 0.015 < 0.015 Total Protein Albumin Globulin Albumin/Globulin Ratio Triglycerides Cholesterol LDL Cholesterol VLDL Cholesterol HDL Cholesterol Urine Color Yellow Urine Clarity Sl Cldy Urine pH 7.0 Ur Specific [place] 1.010 Urine Protein Negative Urine Glucose (UA) Normal Urine Ketones Negative Urine Occult Blood Negative Urine Nitrite Negative Urine Bilirubin Negative Urine Urobilinogen Normal Ur Leukocyte Esterase 100 H Urine RBC 0 SEEN Urine WBC 5-10 SEEN Ur Squamous Epith Cells 0-5 SEEN Urine Bacteria 0 SEEN Urine Mucus 0 SEEN 07/23/18 07/23/18 07/23/18 05:00 05:00 05:00 WBC 4.3 L RBC 3.61 L Hgb 11.0 L Hct 34.0 L MCV 94.2 MCH 30.5 MCHC 32.4 RDW 13.1 RDW Differential 43.3 Plt Count 192 MPV 10.3 Immature Gran % (Auto) Neut % (Auto) Lymph % (Auto) [place] % (Auto) Eos % (Auto) Baso % (Auto) Absolute Neuts (auto) Absolute Lymphs (auto) Total Counted PT 12.5 INR 0.9 APTT 29.8 Sodium 143 Potassium 4.1 Chloride 107 Carbon Dioxide 28.0 Anion Gap 8 BUN 21 H Creatinine 0.70 Estim Creat Clear Calc 37.55 Est GFR (MDRD) Af Amer 104 Est GFR (MDRD) Non-Af 86 BUN/Creatinine Ratio 30.0 H Glucose 86 Calcium 8.5 Total Bilirubin 0.30 AST 24 ALT 27 Alkaline Phosphatase 74 Troponin I Total Protein 6.2 L Albumin 3.1 L Globulin 3.1 Albumin/Globulin Ratio 1.0 Triglycerides 55 Cholesterol 194 LDL Cholesterol 101 VLDL Cholesterol 11 HDL Cholesterol 82 Urine Color Urine Clarity Urine pH Ur Specific [place] Urine Protein Urine Glucose (UA) Urine Ketones Urine Occult Blood Urine Nitrite Urine Bilirubin Urine Urobilinogen Ur Leukocyte Esterase Urine RBC Urine WBC Ur Squamous Epith Cells Urine Bacteria Urine Mucus Discharge Diet: No Restrictions Discharge Activity: Return to Normal Activity Call your doctor if you observe: Shortness of breath, Dizziness, Fainting spel ls, Chest pain Disposition: Home Minutes spent on discharge:: 35 Patient Condition:: Stable Medical Necessity - Tobacco Use Smoking Status: Never smoker Meaningful Use Info Meaningful Use Diagnoses (Choose all that apply): None applicable Code Visit OBSV E&M: 09497 Observation care discharge
--- NOTE | 2018-07-23 11:32 | PHA.DC.MC ---
Pharmacy Service has performed discharge medication reconciliation and counseling for this patient. The patient's discharge medication list was reviewed for discrepancies and discrepancies were resolved. The patient was counseled on the following discharge medications and changes in medications for homegoing were reviewed. 1. RANITIDINE The Reason for Use, instructions for use, and potential side effects were reviewed for all new medications. The patient's questions regarding all of their medications were answered. The patient demonstrated some understanding but would benefit from further education and reinforcement. Home Medications Cholecalciferol (VIT D3) [Vitamin D3] 5,000 unit PO DAILY 02/17/15 Lisinopril [Zestril] 10 mg PO DAILY 02/17/15 Oxybutynin [Ditropan] 10 mg PO DAILY 02/17/15 [place]-3 Fatty Acids/Fish Oil [Fish Oil 1,000 mg Capsule] 1 each PO BID 05/06/15 Fluoxetine HCl 10 mg PO DAILY 07/22/18 Omeprazole 40 mg PO DAILY 07/22/18 Ranitidine HCl [Zantac 75] 75 mg PO DAILY #30 tablet 07/23/18
== END 2018-07-23 10:56 | disposition home or self-care (01) ==
LOC: ED 19:39 → PCU 20:06
PROVIDERS: Admitting Provider Family Medicine; Emergency Provider Emergency Medicine; Family Provider Family Medicine Geriatric Medicine; PCP Family Medicine Geriatric Medicine
DX: R07.89 Other chest pain (principal); K21.9 Gastro-esophageal reflux disease without esophagitis; I10 Essential (primary) hypertension; M79.7 Fibromyalgia; F32.9 Major depressive disorder, single episode, unspecified; E87.6 Hypokalemia; Z79.899 Other long term (current) drug therapy
CPT/HCPCS: 36415; 71045; 78452; 80048; 80053; 80061; 81001; 84484; 85025; 85027; 85610; 85730; 93005; 93017; 96372; 99218; 99285; A9500; J7030; A4216; G0378

== ENCOUNTER → 2018-07-26 12:07 | Outpatient (CLI) | payer MEDICARE, BC, SELFPAY ==
[2018-07-22 20:36] VITALS: BMI 22.8
[2018-07-26 13:10] LABS: Absolute Lymphocyte Count 1.28 X10^3/ul (0.83-4.51); Absolute Neutrophil Count 3.3 X10^3/uL (2.0-7.7); Basophil# 0.03 X10^3/uL; Basophil% 0.6 % (0-1); Eosinophil# 0.04 X10^3/uL; Eosinophils% 0.8 % (0-5); Hematocrit 36.3 % (37-47); Hemoglobin 11.8 g/dl (12.0-15.0); Lymphocyte # 1.28 X10^3/ul (4.0); Lymphocyte % 25.3 % (19-41); Mean Corp Hgb Conc 32.5 g/gl (32-36); Mean Corpuscular Hgb 30.6 pg (27.0-32.0); Mean Platelet Vol. 11.2 fl (6.2-12.0); Monocyte# 0.44 X10^3/uL; Monocyte% 8.7 % (0-10); Neutrophil # 3.27 X10^3/uL (2.7-7.7); Neutrophil % 64.6 % (47-70); Platelet Count 187 K/mm3 (150-450); RBC Distribution Width SD 43.6 fl (35.1-43.9); Red Blood Count 3.86 M/mm3 (4.2-5.4); White Blood Count 5.1 K/mm3 (4.4-11.0)
[2018-07-26 13:12] LABS: POSITIVE COUNT NO; POSITIVE DIFFERENTIAL NO; POSITIVE MORPHOLOGY NO
[2018-07-26 13:51] LABS: AST(SGOT) 27 U/L (15-37); Alanine Aminotransfer ALT/SGPT 31 U/L (13-56); Albumin, Serum 3.5 g/dL (3.2-5.0); Alkaline Phosphatase 75 U/L (45-117); Anion Gap 8 (5-15); BUN 26 mg/dL (7-18); BUN/Creat Ratio 32.1 RATIO (10-20); Calcium,Total 8.5 mg/dL (8.5-10.1); Chloride 106 mmol/L (98-107); Creatinine, Serum 0.81 mg/dL (0.55-1.02); EST Glomerular Filtration Rate 73 mL/min (>60); Est Glom Filt Rate - Afr Amer 88 mL/min (>60); Globulin 3.6 g/dL (2.2-4.2); Glucose 79 mg/dL (74-106); Potassium 4.6 mmol/L (3.5-5.1); Protein, Total 7.1 g/dL (6.4-8.2); Sodium Level 141 mmol/L (136-145); Vitamin D,25 Hydroxy 67.8 ng/mL (29.95-100.01)
== END ==
PROVIDERS: Family Provider Family Medicine Geriatric Medicine; PCP Family Medicine Geriatric Medicine; Visit Provider Family Medicine Geriatric Medicine
DX: I10 Essential (primary) hypertension (principal); E55.9 Vitamin D deficiency, unspecified
CPT/HCPCS: 36415; 80053; 82306; 84443; 85025

== ENCOUNTER → 2018-08-16 13:33 | Outpatient (CLI) | payer MEDICARE, BC, SELFPAY ==
[2018-07-22 20:36] VITALS: BMI 22.8
[2018-08-16 13:51] VITALS: BP 114/64; PULSE 46; RESP 16; O2SAT 94; BMI 21.9
--- NOTE | 2018-08-16 13:53 | CT_ITS ---
STUDY: CT CHEST WITHOUT CONTRAST REASON FOR EXAM: Female, 78 years old. Hyperlipidemia. Calcium scoring examination. Radiological over read examination. RADIATION DOSAGE (If Supplied By Facility): CTDIvol = ( 12.19 ) mGy, DLP = ( 170.66 ) mGycm TECHNIQUE: Transaxial imaging was performed without the administration of intravenous contrast material. Individualized dose optimization techniques were used for this CT. COMPARISON: Comparison is made with prior examination dated February 17, 2015. FINDINGS: The lungs are normal. There is no demonstrated pleural abnormality. There are calcifications of the coronary arteries. There are multiple small lymph nodes within the mediastinum, which are normal in size and morphology most compatible with reactive lymph hyperplasia. Normal hilar regions. Normal unenhanced pulmonary arteries. Normal aorta arch and descending thoracic aorta. Normal osseous structures. Moderate sized hiatal hernia. Multiple hepatic cysts as well as multiple bilateral renal cysts. CT/Limited Chest CT w/CCTA IMPRESSION: Coronary artery calcification. Multiple hepatic and renal cysts. Electronically Signed: Jani Bardales, at 8:57 EST , Service support ,
--- NOTE | 2018-08-19 15:14 | CA.SCORE ---
Calcium Scoring Date of Study:: 08/19/18 Coronary Calcium Scoring: Calcium scoring. High-resolution computed tomographic imaging of the chest was performed on 08/16/2018 with particular attention paid to the coronary arteries. Images from the examination were analyzed for the presence and extent of coronary artery calcification using the coronary calcification quantification software. The patient tolerated the procedure well there were no complications. The results of the coronary calcification analysis are provided below. Coronary artery Left main score 0 Left anterior descending artery score 116 Left circumflex artery score 3.1 Right coronary artery score 27. Total Agatson score 147. The above suggest the percentile ranking between 50 and 75%. The above is indicative of moderate plaque burden with moderate nonobstructive coronary artery disease likely.
== END ==
PROVIDERS: Family Provider Family Medicine Geriatric Medicine; PCP Family Medicine Geriatric Medicine; Referring Provider Family Medicine Geriatric Medicine; Visit Provider Family Medicine Geriatric Medicine
DX: E78.5 Hyperlipidemia, unspecified (principal)
CPT/HCPCS: 75571; 76380

== ENCOUNTER → 2018-10-02 12:54 | Outpatient (CLI) | payer MEDICARE, BC, SELFPAY ==
[2018-09-11 08:19] VITALS: BMI 22.0
--- NOTE | 2018-10-02 12:55 | ECHOD_ITS ---
Reason For Study: CHEST PAIN Procedure This was a 2D Doppler, Color Flow transthoracic echocardiogram. Exam performed in department. Left Ventricle Normal LV size. Left ventricular systolic function is normal. The estimated ejection fraction is 60 %. Stage 1 diastolic dysfunction. Right Ventricle Normal RV size. Normal systolic function. Atria Normal left atrium. Normal right atrium. Mitral Valve Normal mitral valve. Mild (1+) eccentric mitral valve insufficiency. Tricuspid Valve Normal tricuspid valve. Mild (1+) tricuspid valve insufficiency. Pulmonary artery systolic pressure is 30 mmHg. Aortic Valve Trisinus/trileaflet aortic valve. Pulmonic Valve Normal pulmonic valve. Great Vessels Normal aortic root. The pulmonary artery is normal size. Normal inferior vena cava. Pericardium/Pleural No pericardial effusion. MMode/2D Measurements & Calculations LVIDd: 3.8 cm IVSd: 0.66 cm Ao root diam: 3.1 cm LVIDs: 2.7 cm LVPWd: 0.62 cm RVDd: 3.8 cm FS: 29.1 % LAV(MOD-bp): 49.0 ml LVAd ap4: 23.9 cm2 SV(MOD-sp4): 40.8 ml LAV(MOD-bp) Indexed: 33.8 ml/m2 EDV(MOD-sp4): 65.4 ml LAV(MOD-sp2): 38.9 ml EDV(sp4-el): 69.0 ml LAV(MOD-sp4): 53.2 ml LVAs ap4: 12.8 cm2 ESV(MOD-sp4): 24.7 ml ESV(sp4-el): 25.5 ml EF(MOD-sp4): 62.3 % EF(sp4-el): 63.1 % SV(sp4-el): 43.5 ml LA A4 area: 19.4 cm2 LA dimension(2D): 3.3 cm RA A4 area: 13.8 cm2 Time Measurements MV dec time: 0.29 sec Doppler Measurements & Calculations MV E max vito: 70.2 cm/sec Lat Peak E' Vito: 11.6 cm/sec Med Peak E' Vito: 5.8 cm/sec MV A max vito: 84.8 cm/sec E/E' lat: 6.1 E/E' med: 12.1 MV E/A: 0.83 Ao V2 max: 125.9 cm/sec LV V1 max: 119.9 cm/sec PA V2 max: 92.4 cm/sec Ao max P.3 mmHg LV V1 max P.7 mmHg TR max vito: 252.9 cm/sec TR max P.7 mmHg Interpretation Summary Normal LV size. Left ventricular systolic function is normal. The estimated ejection fraction is 60 %. Stage 1 diastolic dysfunction. Mild (1+) eccentric mitral valve insufficiency. Pulmonary artery systolic pressure is 30 mmHg. Ordering Physician: Chi Gonzales Referring Physician: JIMENEZ ORTEGA Performed By: Dagmar Sinclair RDCS
== END ==
PROVIDERS: Family Provider Family Medicine Geriatric Medicine; PCP Family Medicine Geriatric Medicine; Referring Provider Internal Medicine Cardiovascular Disease; Visit Provider Internal Medicine Cardiovascular Disease
DX: R07.9 Chest pain, unspecified (principal); Z98.890 Other specified postprocedural states; Z87.19 Personal history of other diseases of the digestive system
CPT/HCPCS: 93306

== ENCOUNTER → 2019-01-02 11:13 | Outpatient (CLI) | payer MEDICARE, BC, SELFPAY ==
[2018-09-11 08:19] VITALS: BMI 22.0
[2019-01-02 12:36] LABS: Absolute Neutrophil Count 2.3 X10^3/uL (2.0-7.7); Basophil# 0.05 X10^3/uL; Basophil% 1.2 % (0-1); Eosinophil# 0.03 X10^3/uL; Eosinophils% 0.7 % (0-5); Hematocrit 35.8 % (37-47); Hemoglobin 11.8 g/dL (12.0-15.0); Lymphocyte % 31.9 % (19-41); Mean Corpuscular Hgb 30.4 pg (27.0-32.0); Mean Corpuscular Volume 92.3 fL (81-99); Mean Platelet Vol. 10.8 fl (6.2-12.0); Monocyte# 0.37 X10^3/uL; Monocyte% 9.1 % (0-10); NRBC Flagged by Analyzer 0 % (0-5); Neutrophil # 2.33 X10^3/uL (2.7-7.7); Neutrophil % 57.1 % (47-70); Platelet Count 207 K/mm3 (150-450); RBC Distribution Width CV 13.2 % (11.6-14.6); RBC Distribution Width SD 44.7 fl (35.1-43.9); Red Blood Count 3.88 M/mm3 (4.2-5.4); White Blood Count 4.1 K/mm3 (4.4-11.0)
[2019-01-02 13:03] LABS: ALB/GLOB Ratio 0.9 RATIO (0.9-2.4); AST(SGOT) 20 U/L (15-37); Alanine Aminotransfer ALT/SGPT 20 U/L (13-56); Albumin, Serum 3.4 g/dL (3.2-5.0); Alkaline Phosphatase 89 U/L (45-117); Anion Gap 9 (5-15); BUN 35 mg/dL (7-18); BUN/Creat Ratio 34.7 RATIO (10-20); Calcium,Total 8.7 mg/dL (8.5-10.1); Chloride 103 mmol/L (98-107); Creatinine, Serum 1.01 mg/dL (0.55-1.02); EST Glomerular Filtration Rate 56 mL/min (>60); Est Glom Filt Rate - Afr Amer 68 mL/min (>60); Globulin 3.6 g/dL (2.2-4.2); Glucose 97 mg/dL (74-106); Potassium 3.5 mmol/L (3.5-5.1); Sodium Level 137 mmol/L (136-145); Thyroid Stim Hormone (TSH) 1.13 uIU/mL (0.358-3.74)
== END ==
PROVIDERS: Family Provider Family Medicine Geriatric Medicine; PCP Family Medicine Geriatric Medicine; Visit Provider Family Medicine Geriatric Medicine
DX: I10 Essential (primary) hypertension (principal); E55.9 Vitamin D deficiency, unspecified
CPT/HCPCS: 36415; 80053; 82306; 84443; 85025

== ENCOUNTER → 2019-04-04 12:36 | Outpatient (CLI) | payer MEDICARE, BC, SELFPAY ==
[2018-09-11 08:19] VITALS: BMI 22.0
--- NOTE | 2019-04-04 12:43 | MRI_ITS ---
STUDY: MRI BRAIN WITHOUT CONTRAST REASON FOR EXAM: Female, 79 years old. The patient presents with a history of confusion and dementia. TECHNIQUE: Standardized multiplanar fat and water weighted pulse sequences were obtained. COMPARISON: CT BRAIN-December 25, 2017 FINDINGS: There is mild sulcal prominence with widening of the bilateral sylvian fissures (coronal T2 fat sat series 9, images 9; sagittal T1 series 3, images 5 and 19). There are multiple white matter hyperintensities, distributed throughout the deep white matter tracts of the cerebral hemispheres, consistent with moderate chronic white matter ischemic changes. There is no evidence for recent intracranial ischemia or other cause of cytotoxic edema on diffusion weighted imaging (DWI). Normal T2* images of the brain without demonstrated susceptibility artifact. There is no demonstrated hemosiderin stain. Normal bilateral basal ganglia. Normal thalami. There is no extra-axial fluid accumulation. Normal flow voids within the major intracranial circulation suggesting patency by spin echo criteria. There is ectatic elongation of the left cavernous carotid artery and terminus (coronal T2 series 9-12; axial T2 series 5, image 9). There is no demonstrated aneurysm. Normal sella turcica, pituitary gland, infundibular stalk, optic chiasm and hypothalamus. Normal tectal plate and pineal gland. There are chronic white matter ischemic changes of the lexi. The midbrain and medulla are otherwise normal. Normal cerebellum. Normal basal cisterns. Normal bilateral temporal bones. Normal bilateral internal auditory canals. The patient is status post scleral banding of the right globe with intraocular lens implant (axial T2 series 5, image 10). Normal left globe. Normal intraorbital contents. There is minimal mucosal inflammatory disease of the maxillary sinuses (axial T2 FLAIR series 6, image 5). Normal calvarium and skull base. Normal visualized soft tissue structures. Normal visualized upper cervical spine. MRI/Brain without Contrast IMPRESSION: 1. Sulcal prominence with widening of the bilateral sylvian fissures. 2. Moderate chronic white matter ischemic changes of the supratentorial brain. 3. No acute or evolving ischemic process. 4. Chronic white matter ischemic changes of the lexi. 5. 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 6. Status post scleral banding and intraocular lens implant of the right globe. Electronically Signed: Juan Carlos Maguire DO at 14:35 EDT Tel , Service support ,
== END ==
PROVIDERS: Family Provider Family Medicine; PCP Family Medicine; Referring Provider Psychiatry & Neurology Neurology; Visit Provider Psychiatry & Neurology Neurology
DX: G44.52 New daily persistent headache (NDPH) (principal); R41.3 Other amnesia
CPT/HCPCS: 70551

== ENCOUNTER → 2019-04-09 13:46 | Outpatient (CLI) | payer MEDICARE, BC, SELFPAY ==
[2018-09-11 08:19] VITALS: BMI 22.0
--- NOTE | 2019-04-09 13:49 | BI_ITS ---
MAMMOGRAPHY - BILATERAL DIAGNOSTIC REASON FOR EXAM: Female, 79 years old. Occasional breast pain. PERTINENT HISTORY: Daughter with breast cancer. Remote right excisional breast biopsy. TECHNIQUE: Digital bilateral breast greg (3D mammographic acquisition) in the CC and MLO projections. 2-D mediolateral oblique (MLO) and craniocaudad (CC) views of both breasts were obtained. CAD: Full Field Digital Mammography with Computer Added Detection was performed. COMPARISON: Comparison is made with prior examination dated June 05, 2014. FINDINGS: Breast Composition: There are scattered areas of fibroglandular density. There are no dominant masses or suspicious calcifications. Stable benign-appearing left axillary lymph node. No other significant abnormalities are identified. There has been no significant change since the prior study. BI/DIAG MAMM W/CAD, BILAT IMPRESSION: Stable bilateral diagnostic mammogram. One year follow-up recommended. (A) ASSESSMENT CATEGORY: BIRADS Category 2: Benign. A letter regarding these results will be sent to the patient by the facility within 30 days. Approximately 10% of breast cancers are not detected by mammography. A normal mammogram should not delay biopsy of a clinically suspicious abnormality. Electronically Signed: Jani Bardales, at 15:20 EDT , Service support ,
--- NOTE | 2019-04-09 13:49 | US_ITS ---
STUDY: ULTRASOUND BREAST - LEFT REASON FOR EXAM: Female, 79 years old. Left breast pain. TECHNIQUE: Axial and longitudinal images of the LEFT breast were performed with a high resolution ultrasound transducer. COMPARISON: Comparison is made with prior mammogram done earlier in the day. FINDINGS: LEFT Breast: The area of pain was examined by ultrasound. No sonographic abnormality is seen. US/Breast Limited Unilateral IMPRESSION: No sonographic abnormality is seen. ASSESSMENT CATEGORY: BIRADS Category 1: Negative. A letter regarding these results will be sent to the patient by the facility within 30 days. Electronically Signed: Jani Bardales, at 15:42 EDT , Service support ,
== END ==
PROVIDERS: Family Provider Family Medicine; PCP Family Medicine; Referring Provider Family Medicine; Visit Provider Family Medicine
DX: N64.4 Mastodynia (principal)
CPT/HCPCS: 76642; 77062; 77066; G0279

== ENCOUNTER → 2019-04-15 | Outpatient (CLI) | payer MEDICARE, BC, SELFPAY ==
[2018-09-11 08:19] VITALS: BMI 22.0
--- NOTE | 2019-04-15 10:54 | RAD_ITS ---
STUDY: X-RAY CHEST REASON FOR EXAM: Female, 79 years old. Persistent cough, fatigue TECHNIQUE: PA and lateral views of the chest. COMPARISON: None. FINDINGS: There are interstitial fibrotic changes of the lungs. There is no demonstrated pleural abnormality. Normal size heart. Normal mediastinum and kwesi. Normal visualized pulmonary arteries. There is atherosclerotic calcification of the aortic arch with tortuosity. There are diffuse degenerative changes of the visualized thoracic spine. Normal visualized ribs, clavicles, and shoulders. There is no demonstrated abnormality of the visualized soft tissue structures of the upper abdomen. RAD/Chest PA and Lateral IMPRESSION: Degenerative changes, as described above. No demonstrated acute cardiopulmonary process. Electronically Signed: Chas Fabian MD at 17:08 EDT , Service support ,
== END | disposition home or self-care (01) ==
LOC: MTRAD 10:52
PROVIDERS: Family Provider Family Medicine; PCP Family Medicine; Referring Provider Family Medicine; Visit Provider Family Medicine
DX: R06.00 Dyspnea, unspecified (principal)
CPT/HCPCS: 71046

== ENCOUNTER → 2019-04-23 20:00 | Outpatient (CLI) | payer MEDICARE, BC, SELFPAY ==
[2018-09-11 08:19] VITALS: BMI 22.0
== END ==
PROVIDERS: Family Provider Family Medicine; PCP Family Medicine; Referring Provider Psychiatry & Neurology Neurology; Visit Provider Psychiatry & Neurology Neurology
DX: G47.33 Obstructive sleep apnea (adult) (pediatric) (principal)
CPT/HCPCS: 95811

== ENCOUNTER → 2019-06-06 15:42 | Outpatient (CLI) | payer MEDICARE, BC, SELFPAY ==
[2018-09-11 08:19] VITALS: BMI 22.0
--- NOTE | 2019-06-06 15:48 | RAD_ITS ---
STUDY: X-RAY - RIGHT SHOULDER REASON FOR EXAM: Female, 79 years old. right shoulder pain TECHNIQUE: 4 view(s) of the shoulder. COMPARISON: None. FINDINGS: There is mild degenerative arthrosis of the glenohumeral articulation. There is degenerative arthrosis of the acromioclavicular joint without inferior osseous spur formation. Normal acromion. There is demineralization of the humerus and visualized osseous structures. The soft tissue structures are unremarkable. There is no demonstrated fracture. Normal visualized pulmonary apex. RAD/Shoulder min 2 Views IMPRESSION: Diffuse osteopenia along with mild degenerative disease. No acute fracture or subluxation. Electronically Signed: Eugenia Cordova MD at 3:14 EST , Service support ,
== END ==
PROVIDERS: Family Provider Family Medicine; PCP Family Medicine; Referring Provider Family Medicine; Visit Provider Family Medicine
DX: M19.011 Primary osteoarthritis, right shoulder (principal); M85.811 Other specified disorders of bone density and structure, right shoulder
CPT/HCPCS: 73030

== ENCOUNTER 2019-08-06 15:57 | Emergency (ER) | payer MEDICARE, BC, SELFPAY ==
[2018-09-11 08:19] VITALS: BMI 22.0
[2019-08-06 15:58] VITALS: BP 138/83; PULSE 64; RESP 17; TEMP 36.6; O2SAT 95; BMI 20.5
--- NOTE | 2019-08-06 16:35 | CT_ITS ---
STUDY: CT BRAIN WITHOUT CONTRAST REASON FOR EXAM: Female, 79 years old. FALL; HEMATOMA ON LT SIDE OF FOREHEAD, NO LOC RADIATION DOSAGE (If Supplied By Facility): CTDIvol = ( 60.81 ) mGy, DLP = ( 1044.28 ) mGycm TECHNIQUE: Transaxial CT imaging of the brain was performed without administration of intravenous contrast material. Individualized dose optimization techniques were used for this CT. COMPARISON: 12/25/2017 FINDINGS: Moderate anterior left parietal scalp hematoma. Normal calvarium. There is mild cerebral atrophy with widening of the extra-axial spaces and ventricular dilatation. There are areas of decreased attenuation within the white matter tracts of the supratentorial brain, consistent with microvascular disease changes. Normal basal ganglia and thalami. Normal brainstem. Normal cerebellum. There is no intracranial hemorrhage. There are no findings of an acute ischemic infarction. Normal visualized paranasal sinuses. CT/Brain/Head without Contrast IMPRESSION: Moderate sized left parietal scalp hematoma. No acute intracranial hemorrhage. Electronically Signed: Fredy Ellis MD at 17:20 EST Tel , Service support ,
--- NOTE | 2019-08-06 16:38 | ED.VISSUMM ---
- ER Visit Summary Date of Service: 08/06/19 Chief Complaint: Fall, head injury History of Present Illness: The patient is a 79 F who presents with a head injury that occurred after a fall today. Patient tripped over a rug and fell and hit her head. Patient denies any loss of consciousness. Patient hit the left frontal area of her head. Patient describes her pain as dull. Patient states it is mild. Patient denies any paresthesias or weakness. Patient was able to ambulate after the fall. Patient denies any visual changes. Patient denies any nausea or vomiting. Patient denies any neck or back pain. Physical Examination: Signs are stable. Patient is afebrile. Patient is in no acute distress. Pupils are equal, round, and reactive to light bilaterally. Extraocular muscles are intact. Oral mucosa is pink and moist. Neck is supple. Trachea is midline. There is no JVD. Heart was regular rate and rhythm. Lungs are clear and equal bilaterally. Abdomen is soft nontender. Cranial nerves II through XII are intact. Strength is 5/5 bilaterally upper and lower extremities. There are no sensory deficits noted. Musculoskeletal exam shows a hematoma over the left frontal/temporal area. There is no bony crepitance or step-off. Test Results: CT scan of the brain was obtained. There is no acute intracranial abnormality noted. Emergency Department Course and Treatment: Patient states her pain is only mild. Patient and family were advised of her CT results. Patient states she had an episode of dizziness where she felt like her head was spinning. Patient states this resolved after a few minutes. Patient was instructed to get plenty of rest. Patient was instructed to drink plenty of fluids. Patient was instructed to take Tylenol or ibuprofen as needed for any pain. Patient understood and was agreeable with the plan. All questions were answered. Disposition: Discharge home Impression: Forehead contusion This note was generated with [employer] dictation software. It may contain incorrect words, spelling, and punctuation that were not noted in review of the chart prior to signing ED Disposition - Plan for ED Patient: Disposition: Home or Assisted Living Diagnosis: Forehead contusion Instructions: CONCUSSION, No Wake Up Referrals: Cuong Melton DO [Primary Care Provider] - 5-7 Days
== END 2019-08-06 18:01 | disposition home or self-care (01) ==
PROVIDERS: Emergency Provider Emergency Medicine; PCP Family Medicine
DX: S00.83XA Contusion of other part of head, initial encounter (principal); W18.09XA Striking against other object with subsequent fall, initial encounter; Y93.9 Activity, unspecified; Y92.9 Unspecified place or not applicable; Y99.9 Unspecified external cause status; G20 Parkinson's disease; F02.80 Dementia in other diseases classified elsewhere, unspecified severity, without behavioral disturbance, psychotic disturbance, mood disturbance, and anxiety; I10 Essential (primary) hypertension; G47.30 Sleep apnea, unspecified; Z79.899 Other long term (current) drug therapy
CPT/HCPCS: 70450; 99282

== ENCOUNTER 2019-08-27 15:00 | Outpatient (RCR) | payer MEDICARE, BC, SELFPAY ==
--- NOTE | 2019-08-18 12:24 | HP.PTEVAL_ITS ---
Patient's Visit Information LATASHA GUZMAN is a 79 year old F referred to Physical Therapy by Cuong Melton DO with a diagnosis of . Date of Evaluation: 08/18/19 Physical Therapist: SABAS Rodriguez - Visit Plan Plan: 2X/ week for 4 weeks to work on VOR progression, functional strengthening, gait training, balance exercises to help facilitate gait and functional activities with HEP - Subjective Findings: Pt fell 2 weeks ago this Sunday. She was carrying a heavy bag of groceries and she tripped on the rug and went down. She was not on a walker at a time. She had 2 golf ball bruises on her head and her R arm hurt ( hurt before) and Her daughter lives with them now and has some respite care and waiting to move into [place] when something comes open. She now on a walker and Dr Melton and Dr Troy said to put her on a walker. She had a tiny bit of balance issues before the fall but not major. She did not use a walker before the fall. Pt had a concussion. Dr Troy feels that she has post concussion syndrome. She reports that she is now dizzy some. Pt has some dizziness when she sits up in bed. Pt has some dizziness when she rolls over in bed sometimes and it does not last long. She reports that the room does not spin. Currently she is a little dizzy sitting here. She was not dizzy before the fall. Pt complains of a decrease ability to read due to her shaking. - Pain R shoulder pain Pain Intensity (Out of 10): 5 - Objective -Hallpike B for dizziness and nystagmus. amooth pursuit horizontal and vertical...... hard to track. and pt gets tired a little blurry and dizzy. Sacaddes... dizzy and blurry. VOR X 1 horizontal hard to track, blurry vision, increase dizziness. Gait walks with a wheeled walke with head straight ahead with small steps. Walks without a walker with min A and therapist holding elbow with small steps and no head turns. Tinetti 16 - Balance Scores Tinetti Balance Score: 7 Tinetti Gait Score: 9 Tinetti Balance & Gait Score: 16 - Anticipated Interventions Patient/Client Instruction: Educate patient on: Condition, Plan of Care For the Purpose of:: To improve muscle performance and motor function, To improve ability to perform ADL's, To increase tolerance to activity/condition/position, To improve performance and independence with ADL's, To decrease level of supervision to perform tasks, To improve ability of physical actions for home/community/work/leisure, To improve gait and locomotor functions, To improve health of tissue, To improve endurance, To improve balance, To improve safety with gait Therapeutic Exercise to Include: Strength training, Endurance training, Balance training, Coordination, Postural training, Flexibilty training, Gait and locomotor training, Neuromotor development For the Purpose of:: To improve muscle performance and motor function, To improve ability to perform ADL's, To increase tolerance to activity/condition/position, To improve performance and independence with ADL's, To decrease level of supervision to perform tasks, To improve ability of physical actions for home/community/work/leisure, To improve gait and locomotor functions, To improve balance, To improve safety with gait Functional Training to Include: Gait training For the Purpose of:: To improve gait and locomotor functions, To improve safety with gait Thank you for the opportunity to evaluate your patient. For Medicare and Medicare HMO plans, please review the plan of care and approve it. It will need to be FAXED BACK to us at [phone] for Medicare purposes. For Medicare only, by signing this I certify the plan of care. Please let me know if there are questions or concerns regarding this plan of care. Physician Signature: Date:
--- NOTE | 2019-11-20 12:47 | HP.PT.NRP ---
LATASHA GUZMAN was seen in my office for initial evaluation on 08/18/19. The following Plan of Care was established for this patient: Patient/Client Instruction: Educate patient on: Condition, Plan of Care For the Purpose of:: To improve muscle performance and motor function, To improve ability to perform ADL's, To increase tolerance to activity/condition/position, To improve performance and independence with ADL's, To decrease level of supervision to perform tasks, To improve ability of physical actions for home/community/work/leisure, To improve gait and locomotor functions, To improve health of tissue, To improve endurance, To improve balance, To improve safety with gait Therapeutic Exercise to Include: Strength training, Endurance training, Balance training, Coordination, Postural training, Flexibilty training, Gait and locomotor training, Neuromotor development For the Purpose of:: To improve muscle performance and motor function, To improve ability to perform ADL's, To increase tolerance to activity/condition/position, To improve performance and independence with ADL's, To decrease level of supervision to perform tasks, To improve ability of physical actions for home/community/work/leisure, To improve gait and locomotor functions, To improve balance, To improve safety with gait Functional Training to Include: Gait training For the Purpose of:: To improve gait and locomotor functions, To improve safety with gait This patient was last seen in our office 08/27/19. Pertinent comments regarding their Physical therapy will appear below: HEP was given to patient by [facility]. She ill be DC'd at this time At this point I will be discontinuing this patient from physical therapy. I would be happy to see this patient again in the future if found appropriate by the physician. Thank you! Stefani Rivas, MPT
== END 2019-08-27 19:00 | disposition home or self-care (01) ==
LOC: PT 15:00
PROVIDERS: PCP Family Medicine; Referring Provider Family Medicine; Visit Provider Family Medicine
DX: R42 Dizziness and giddiness (principal)
CPT/HCPCS: 97110; 97162

== ENCOUNTER → 2019-10-09 10:05 | Outpatient (CLI) | payer MEDICARE, BC, SELFPAY ==
[2019-10-09 12:15] LABS: Absolute Lymphocyte Count 1.08 X10^3/uL (0.83-4.51); Basophil# 0.05 X10^3/uL; Basophil% 1.1 % (0-1); Eosinophil# 0.04 X10^3/uL; Eosinophils% 0.9 % (0-5); Hematocrit 35.3 % (37-47); Hemoglobin 11.4 g/dL (12.0-15.0); Lymphocyte # 1.08 X10^3/ul (4.0); Lymphocyte % 23.6 % (19-41); Mean Corp Hgb Conc 32.3 g/dL (32-36); Mean Corpuscular Hgb 30.1 pg (27.0-32.0); Mean Corpuscular Volume 93.1 fL (81-99); Mean Platelet Vol. 10.3 fl (6.2-12.0); Monocyte# 0.38 X10^3/uL; Monocyte% 8.3 % (0-10); NRBC Flagged by Analyzer 0 % (0-5); Neutrophil # 3.02 X10^3/uL (2.7-7.7); Neutrophil % 65.9 % (47-70); Platelet Count 216 K/mm3 (150-450); RBC Distribution Width CV 13.5 % (11.6-14.6); RBC Distribution Width SD 45.8 fl (35.1-43.9); Red Blood Count 3.79 M/mm3 (4.2-5.4); White Blood Count 4.6 K/mm3 (4.4-11.0)
[2019-10-09 12:30] LABS: ALB/GLOB Ratio 0.9 RATIO (0.9-2.4); AST(SGOT) 30 U/L (15-37); Alanine Aminotransfer ALT/SGPT 33 U/L (13-56); Albumin, Serum 3.4 g/dL (3.2-5.0); Alkaline Phosphatase 119 U/L (45-117); Anion Gap 5 (5-15); BUN 21 mg/dL (7-18); BUN/Creat Ratio 23.4 RATIO (10-20); Calcium,Total 9.2 mg/dL (8.5-10.1); Chloride 104 mmol/L (98-107); EST Glomerular Filtration Rate 64 mL/min (>60); Est Glom Filt Rate - Afr Amer 78 mL/min (>60); Globulin 3.8 g/dL (2.2-4.2); Glucose 83 mg/dL (74-106); Potassium 4.1 mmol/L (3.5-5.1); Protein, Total 7.2 g/dL (6.4-8.2); Sodium Level 140 mmol/L (136-145)
== END ==
PROVIDERS: PCP Family Medicine; Referring Provider Family Medicine; Visit Provider Family Medicine
DX: R41.0 Disorientation, unspecified (principal); R30.0 Dysuria; Z51.81 Encounter for therapeutic drug level monitoring
CPT/HCPCS: 36415; 80053; 82140; 85025; 87077; 87086; 87088

== ENCOUNTER → 2019-11-03 15:37 | Outpatient (CLI) | payer MEDICARE, BC, SELFPAY ==
[2019-11-03 18:09] LABS: Absolute Lymphocyte Count 1.47 X10^3/uL (0.83-4.51); Absolute Neutrophil Count 3.2 X10^3/uL (2.0-7.7); Basophil# 0.06 X10^3/uL; Basophil% 1.1 % (0-1); Eosinophil# 0.04 X10^3/uL; Eosinophils% 0.8 % (0-5); Hematocrit 36.7 % (37-47); Hemoglobin 11.6 g/dL (12.0-15.0); Lymphocyte # 1.47 X10^3/ul (4.0); Lymphocyte % 28.1 % (19-41); Mean Corp Hgb Conc 31.6 g/dL (32-36); Mean Corpuscular Hgb 29.9 pg (27.0-32.0); Mean Corpuscular Volume 94.6 fL (81-99); Mean Platelet Vol. 10.4 fl (6.2-12.0); Monocyte# 0.49 X10^3/uL; Monocyte% 9.4 % (0-10); NRBC Flagged by Analyzer 0 % (0-5); Neutrophil # 3.17 X10^3/uL (2.7-7.7); Neutrophil % 60.4 % (47-70); Platelet Count 255 K/mm3 (150-450); RBC Distribution Width CV 13.2 % (11.6-14.6); RBC Distribution Width SD 45.7 fl (35.1-43.9); Red Blood Count 3.88 M/mm3 (4.2-5.4); White Blood Count 5.2 K/mm3 (4.4-11.0)
[2019-11-03 18:20] LABS: Vitamin B12 851 pg/mL (211-911); Vitamin D,25 Hydroxy 61.3 ng/mL
[2019-11-03 18:30] LABS: ALB/GLOB Ratio 0.9 RATIO (0.9-2.4); AST(SGOT) 25 U/L (15-37); Alanine Aminotransfer ALT/SGPT 33 U/L (13-56); Albumin, Serum 3.4 g/dL (3.2-5.0); Alkaline Phosphatase 116 U/L (45-117); Anion Gap 5 (5-15); BUN 24 mg/dL (7-18); BUN/Creat Ratio 25.6 RATIO (10-20); Calcium,Total 8.9 mg/dL (8.5-10.1); Chloride 103 mmol/L (98-107); Creatinine, Serum 0.94 mg/dL (0.55-1.02); EST Glomerular Filtration Rate 61 mL/min (>60); Est Glom Filt Rate - Afr Amer 74 mL/min (>60); Globulin 3.8 g/dL (2.2-4.2); Glucose 81 mg/dL (74-106); Potassium 3.7 mmol/L (3.5-5.1); Protein, Total 7.2 g/dL (6.4-8.2); Sodium Level 140 mmol/L (136-145); Thyroid Stim Hormone (TSH) 0.97 uIU/mL (0.358-3.74)
== END ==
PROVIDERS: PCP Family Medicine; Referring Provider Family Medicine; Visit Provider Family Medicine
DX: I10 Essential (primary) hypertension (principal); E55.9 Vitamin D deficiency, unspecified; R53.83 Other fatigue
CPT/HCPCS: 36415; 80053; 82306; 82607; 84443; 85025

== ENCOUNTER → 2019-11-06 17:57 | Outpatient (CLI) | payer MEDICARE, BC, SELFPAY ==
[2019-11-06 18:11] LABS: Absolute Lymphocyte Count 1.45 X10^3/uL (0.83-4.51); Absolute Neutrophil Count 2.8 X10^3/uL (2.0-7.7); Basophil# 0.05 X10^3/uL; Eosinophil# 0.06 X10^3/uL; Eosinophils% 1.2 % (0-5); Hematocrit 37.5 % (37-47); Hemoglobin 12.1 g/dL (12.0-15.0); Lymphocyte # 1.45 X10^3/ul (4.0); Lymphocyte % 29.7 % (19-41); Mean Corp Hgb Conc 32.3 g/dL (32-36); Mean Corpuscular Hgb 30.1 pg (27.0-32.0); Mean Corpuscular Volume 93.3 fL (81-99); Mean Platelet Vol. 9.9 fl (6.2-12.0); Monocyte# 0.52 X10^3/uL; Monocyte% 10.7 % (0-10); NRBC Flagged by Analyzer 0 % (0-5); Neutrophil # 2.79 X10^3/uL (2.7-7.7); Neutrophil % 57.2 % (47-70); Platelet Count 231 K/mm3 (150-450); RBC Distribution Width CV 13.1 % (11.6-14.6); RBC Distribution Width SD 44.6 fl (35.1-43.9); Red Blood Count 4.02 M/mm3 (4.2-5.4); White Blood Count 4.9 K/mm3 (4.4-11.0)
[2019-11-06 18:18] LABS: Erythrocyte Sedimentation Rate 35 mm/hr (0-30)
[2019-11-06 18:35] LABS: BNP,B-Type NATRIURETIC PEPTIDE 31.7 pg/mL (0-100)
[2019-11-10 01:51] LABS: SAR-COV-2 IGG ANTIBODY Negative (Negative); SAR-COV-2 IGM ANTIBODY Negative (Negative)
== END ==
PROVIDERS: PCP Family Medicine; Referring Provider Family Medicine; Visit Provider Family Medicine
DX: R06.00 Dyspnea, unspecified (principal); R53.83 Other fatigue; Z20.828 Contact with and (suspected) exposure to other viral communicable diseases
CPT/HCPCS: 36415; 83880; 84484; 85025; 85652; 86140; 86769

== ENCOUNTER 2020-01-12 15:56 | Emergency (ER) | payer MEDICARE, BC, SELFPAY ==
[2020-01-12 15:57] VITALS: BP 131/81; PULSE 64; RESP 16; TEMP 36.9; O2SAT 96; BMI 19.8
[2020-01-12 18:39] VITALS: BP 129/76; PULSE 56; RESP 18; O2SAT 94
--- NOTE | 2020-01-12 18:53 | EKG12_ITS ---
Test Reason : CONFUSION Blood Pressure : / mmHG Vent. Rate : 057 BPM Atrial Rate : 057 BPM P-R Int : 172 ms QRS Dur : 076 ms QT Int : 468 ms P-R-T Axes : 022 006 044 degrees QTc Int : 455 ms Sinus bradycardia Otherwise normal ECG Confirmed by NOAH PETTIT, EDUARDO ([id number]), editor managing newspaper SARAH AGUDELO ([id number]) on 01/14/2020 12:41:10 PM Referred By: BELKIS Confirmed By:EDUARDO ZAMORA MD
--- NOTE | 2020-01-12 18:53 | CT_ITS ---
STUDY: CT BRAIN WITHOUT CONTRAST REASON FOR EXAM: Female, 79 years old. FALL last week. Confusion. Hx of HTN and dementia RADIATION DOSAGE (If Supplied By Facility): CTDIvol = ( 60.81 ) mGy, DLP = ( 998.67 ) mGycm TECHNIQUE: Transaxial CT imaging of the brain was performed without administration of intravenous contrast material. Individualized dose optimization techniques were used for this CT. COMPARISON: Prior study 08-06-19 FINDINGS: Normal soft tissue structures. Normal calvarium. There is mild cerebral atrophy with widening of the extra-axial spaces and ventricular dilatation. There are areas of decreased attenuation within the white matter tracts of the supratentorial brain, consistent with microvascular disease changes. Normal basal ganglia and thalami. Normal brainstem. Normal cerebellum. There is no intracranial hemorrhage. There are no findings of an acute ischemic infarction. Normal visualized paranasal sinuses. CT/Brain/Head without Contrast IMPRESSION: Chronic involutional changes of the brain. There is no intracranial hemorrhage or calvarial fracture. Electronically Signed: Ernst Ivey MD at 19:47 EDT , Service support ,
[2020-01-12 19:24] LABS: Absolute Neutrophil Count 4.1 X10^3/uL (2.0-7.7); Basophil# 0.06 X10^3/uL; Eosinophil# 0.06 X10^3/uL; Hematocrit 36.7 % (37-47); Lymphocyte % 24.4 % (19-41); Mean Corp Hgb Conc 32.7 g/dL (32-36); Mean Corpuscular Hgb 30.3 pg (27.0-32.0); Mean Corpuscular Volume 92.7 fL (81-99); Mean Platelet Vol. 10.5 fl (6.2-12.0); Monocyte# 0.47 X10^3/uL; Monocyte% 7.6 % (0-10); NRBC Flagged by Analyzer 0 % (0-5); Neutrophil # 4.06 X10^3/uL (2.7-7.7); Neutrophil % 65.8 % (47-70); Platelet Count 233 K/mm3 (150-450); RBC Distribution Width CV 13.2 % (11.6-14.6); RBC Distribution Width SD 44.9 fl (35.1-43.9); Red Blood Count 3.96 M/mm3 (4.2-5.4); White Blood Count 6.2 K/mm3 (4.4-11.0)
[2020-01-12 19:28] LABS: Prothrombin Time (Protime)PT. 12.5 SECONDS (11.7-14.9)
[2020-01-12 19:29] LABS: Partial Thromboplast Time 27.6 Seconds (24.1-36.2)
[2020-01-12 19:35] LABS: ALB/GLOB Ratio 0.8 RATIO (0.9-2.4); AST(SGOT) 44 U/L (15-37); Alanine Aminotransfer ALT/SGPT 53 U/L (13-56); Albumin, Serum 3.2 g/dL (3.2-5.0); Alkaline Phosphatase 106 U/L (45-117); Anion Gap 4 (5-15); BUN 19 mg/dL (7-18); BUN/Creat Ratio 20.9 RATIO (10-20); Calcium,Total 9.1 mg/dL (8.5-10.1); Chloride 104 mmol/L (98-107); Creatinine, Serum 0.91 mg/dL (0.55-1.02); EST Glomerular Filtration Rate 63 mL/min (>60); Est Glom Filt Rate - Afr Amer 76 mL/min (>60); Estimated Creatinine Clearance 36.01 ml/min; Globulin 3.9 g/dL (2.2-4.2); Glucose 87 mg/dL (74-106); Potassium 4.2 mmol/L (3.5-5.1); Protein, Total 7.1 g/dL (6.4-8.2); Sodium Level 138 mmol/L (136-145)
[2020-01-12 19:43] LABS: Lactic Acid 0.9 mmol/L (0.4-1.9)
--- NOTE | 2020-01-12 19:46 | RAD_ITS ---
STUDY: X-RAY CHEST REASON FOR EXAM: Female, 79 years old. Weakness. TECHNIQUE: Single AP portable view of the chest. COMPARISON: Prior study of 04-15-19 FINDINGS: quality assurance monitor final leads are present. There are wispy fibrotic changes of the left upper lobe, stable in the interval. There is no demonstrated pleural abnormality. Normal size heart. Normal mediastinum and kwesi. Normal visualized pulmonary arteries. Normal visualized aortic arch and descending thoracic aorta. Normal visualized thoracic spine. Normal visualized ribs, clavicles, and shoulders. There is no demonstrated abnormality of the visualized soft tissue structures of the upper abdomen. RAD/Chest 1 View (Portable) IMPRESSION: Wispy fibrotic changes of the left upper lobe, stable in the interval. No acute cardiopulmonary disease process is seen. Electronically Signed: Ernst Ivey MD at 19:59 EDT , Service support ,
[2020-01-12 20:30] VITALS: BP 125/77; PULSE 62; RESP 18; O2SAT 95
[2020-01-12 20:53] LABS: Bacteria 0 SEEN /hpf (None Seen); Mucous, Urine 0 SEEN /hpf (<or=2+); Squamous Epithelial Cells - UA 0 SEEN /hpf (5-10)
[2020-01-12 20:55] LABS: Color, Urine Yellow (Yellow); Glucose, Dipstick Normal (Normal); Ketone-Dipstick Negative (Negative); Leukocyte Esterase-Dipstick 100 /ul (Negative); Nitrite-Dipstick Negative (Negative); Occult Blood-Urine 250 /ul (Negative); Protein-Dipstick Negative (Negative); Specific Gravity, Urine 1.015 (1.002-1.030); Urine Bilirubin Dipstick Negative (Negative); Urine Clarity Clear (Clear); Urine Urobilinogen Normal (Normal)
--- NOTE | 2020-01-12 21:05 | RAD_ITS ---
STUDY: X-RAY - LEFT HUMERUS REASON FOR EXAM: Female, 79 years old. LEFT ARM PAIN. TECHNIQUE: 2 view(s) of the humerus. COMPARISON: None. FINDINGS: Normal visualized humerus. There is no demonstrated fracture or osseous destructive process. There is no demonstrated soft tissue abnormality. RAD/Humerus min 2 Views IMPRESSION: Normal x-ray examination of the humerus. Electronically Signed: Ernst Ivey MD at 21:41 EDT , Service support ,
[2020-01-12 21:08] LABS: Red Blood Cells-Urine 0-5 SEEN /hpf (0-5); White Blood Cells 0-5 SEEN /hpf (0-5)
--- NOTE | 2020-01-12 21:20 | RAD_ITS ---
STUDY: X-RAY - LEFT ELBOW REASON FOR EXAM: Female, 79 years old. LEFT ARM PAIN TECHNIQUE: 3 view(s) of the elbow. COMPARISON: None. FINDINGS: Normal visualized humerus, radius and ulna. Normal radiocapitellar and ulnotrochlear articulations. The soft tissue structures are unremarkable. RAD/Elbow min 3 Views IMPRESSION: Normal x-ray examination of the elbow. Electronically Signed: Ernst Ivey MD at 21:40 EDT , Service support ,
[2020-01-12 21:37] VITALS: BP 132/79; PULSE 55; RESP 19
--- NOTE | 2020-01-12 22:58 | ED.DCSUM_ITS ---
- ER Visit Summary Date of Service: 01/12/20 Chief Complaint: Weakness and fall History of Present Illness: The patient is a 79 F who presents with weakness that is been getting progressively worse over a fall 5 days ago. Patient states she feels weak all over. Patient states this is gradually gotten worse. Family states patient has had decreased appetite. Patient also complains of pain in her left elbow. Family states patient has been getting confused at times. Family states patient did hit her head but did not have any loss of consciousness. Patient denies any headaches. Patient denies any chest pain or shortness of breath. Patient denies any nausea or vomiting. Physical Examination: Vital signs are stable. Patient is afebrile. Patient is in no acute distress. Oral mucosa is pink and moist. Neck is supple. Trachea is midline. There is no JVD. Heart was regular rate and rhythm. Lungs are clear bilaterally. There is adequate respiratory effort noted. Abdomen is soft. Bowel sounds are normal. There is no tenderness. Extremities are intact. There is some mild tenderness over the left elbow and left arm. There is no deformity noted. Cranial nerves II through XII are intact. There are no focal motor or sensory deficits noted. Test Results: EKG showed normal sinus rhythm with a rate of 57. There are no acute ST or T wave changes. CBC and comprehensive metabolic profile were within normal limits. PT with INR and PTT were normal. Urinalysis does not show any evidence of urinary tract infection. Lactate was normal. X-rays of the left elbow and left humerus were obtained. There are no acute fractures. CT scan of the brain was obtained. There are chronic changes. Portable chest x-ray was obtained. There are chronic changes but no acute cardiopulmonary process. These were all interpreted by the radiologist and reviewed by myself. Emergency Department Course and Treatment: She was given IV fluids. Patient was feeling better on reevaluation. Patient was instructed to use ice to the left elbow. Patient was instructed to follow-up with her primary care physician in 5 to 7 days. Patient was instructed take Tylenol as needed for pain. Patient and family understood and were agreeable with the plan. All questions were answered. Disposition: Discharge home Impression: 1. Fall 2. Left arm pain 3. Head injury This note was generated with [employer] software. It may contain incorrect words, spelling, and punctuation that were not noted in review of the chart prior to signing ED Disposition - Plan for ED Patient: Disposition: Home or Assisted Living Diagnosis: Fall, Head injury, Contusion of left upper arm Instructions: ED SOFT TISSUE CONTUSION, ED Head Injury Adult Referrals: Cuong Melton DO [Primary Care Provider] - 5-7 Days
[2020-01-12 23:15] VITALS: BP 120/77; PULSE 61; RESP 18; O2SAT 94
== END 2020-01-12 23:26 | disposition home or self-care (01) ==
PROVIDERS: Emergency Provider Emergency Medicine; PCP Family Medicine
DX: S09.90XA Unspecified injury of head, initial encounter (principal); S50.02XA Contusion of left elbow, initial encounter; W19.XXXA Unspecified fall, initial encounter; Y93.9 Activity, unspecified; Y92.9 Unspecified place or not applicable; Y99.9 Unspecified external cause status; F03.90 Unspecified dementia, unspecified severity, without behavioral disturbance, psychotic disturbance, mood disturbance, and anxiety; Z79.899 Other long term (current) drug therapy
CPT/HCPCS: 70450; 71045; 73060; 73080; 80053; 81001; 83605; 84484; 85025; 85610; 85730; 87040; 87086; 87088; 93005; 99283; J7030; A4216

== ENCOUNTER → 2020-01-29 11:54 | Outpatient (CLI) | payer MEDICARE, BC, SELFPAY ==
[2020-01-12 15:57] VITALS: BMI 19.8
--- NOTE | 2020-01-29 12:00 | RAD_ITS ---
STUDY: X-RAY - PELVIS AND LEFT HIP REASON FOR EXAM: Female, 79 years old. PAIN S/P RECENT FALL TECHNIQUE: 3 views of the pelvis and hip. COMPARISON: None. FINDINGS: There is a non-specific bowel gas pattern. Normal visualized soft tissue structures. Normal bilateral iliac wings, sacroiliac joints and visualized sacrum. Normal bilateral superior and inferior pubic rami. Normal pubic symphysis. Normal bilateral ischial tuberosities. Normal visualized femoral head. Normal acetabulum. There is mild articular joint space narrowing of the hip. RAD/HIP, UNI W/ Pelvis 2-3 Views IMPRESSION: The pelvic ring is intact without fracture. Normally located hips without proximal femoral fracture. Mild degenerative narrowing of the left hip. Electronically Signed: Ondina Ojeda MD at 23:16 EDT , Service support ,
== END ==
PROVIDERS: PCP Family Medicine; Referring Provider Family Medicine; Visit Provider Family Medicine
DX: M25.552 Pain in left hip (principal)
CPT/HCPCS: 73502

== ENCOUNTER → 2020-02-02 14:34 | Outpatient (CLI) | payer MEDICARE, BC, SELFPAY ==
[2020-01-12 15:57] VITALS: BMI 19.8
[2020-02-02 17:34] LABS: Absolute Lymphocyte Count 1.08 X10^3/uL (0.83-4.51); Absolute Neutrophil Count 3.3 X10^3/uL (2.0-7.7); Basophil# 0.05 X10^3/uL; Eosinophil# 0.04 X10^3/uL; Eosinophils% 0.8 % (0-5); Hematocrit 38.4 % (37-47); Hemoglobin 12.1 g/dL (12.0-15.0); Lymphocyte # 1.08 X10^3/ul (4.0); Lymphocyte % 22.1 % (19-41); Mean Corp Hgb Conc 31.5 g/dL (32-36); Mean Corpuscular Hgb 29.4 pg (27.0-32.0); Mean Corpuscular Volume 93.2 fL (81-99); Mean Platelet Vol. 10.6 fl (6.2-12.0); Monocyte# 0.41 X10^3/uL; Monocyte% 8.4 % (0-10); NRBC Flagged by Analyzer 0 % (0-5); Neutrophil # 3.29 X10^3/uL (2.7-7.7); Neutrophil % 67.5 % (47-70); Platelet Count 259 K/mm3 (150-450); RBC Distribution Width CV 13.4 % (11.6-14.6); RBC Distribution Width SD 45.9 fl (35.1-43.9); Red Blood Count 4.12 M/mm3 (4.2-5.4); White Blood Count 4.9 K/mm3 (4.4-11.0)
[2020-02-02 17:57] LABS: ALB/GLOB Ratio 0.9 RATIO (0.9-2.4); AST(SGOT) 61 U/L (15-37); Alanine Aminotransfer ALT/SGPT 67 U/L (13-56); Albumin, Serum 3.5 g/dL (3.2-5.0); Alkaline Phosphatase 111 U/L (45-117); Anion Gap 7 (5-15); BUN 11 mg/dL (7-18); BUN/Creat Ratio 12.5 RATIO (10-20); Chloride 101 mmol/L (98-107); Creatinine, Serum 0.88 mg/dL (0.55-1.02); EST Glomerular Filtration Rate 66 mL/min (>60); Est Glom Filt Rate - Afr Amer 79 mL/min (>60); Globulin 3.7 g/dL (2.2-4.2); Glucose 90 mg/dL (74-106); Potassium 3.5 mmol/L (3.5-5.1); Prealbumin 26.8 mg/dL (20.0-40.0); Protein, Total 7.2 g/dL (6.4-8.2); Sodium Level 139 mmol/L (136-145)
== END ==
PROVIDERS: PCP Family Medicine; Visit Provider Family Medicine
DX: I10 Essential (primary) hypertension (principal); R53.83 Other fatigue; R41.0 Disorientation, unspecified; R63.4 Abnormal weight loss
CPT/HCPCS: 36415; 80053; 84134; 84443; 85025; 87086; 87088

== ENCOUNTER → 2020-02-26 12:22 | Outpatient (CLI) | payer MEDICARE, BC, SELFPAY ==
[2020-02-26 12:28] LABS: Mucous, Urine 0 SEEN /hpf (<or=2+); Red Blood Cells-Urine 0 SEEN /hpf (0-5)
[2020-02-26 15:16] LABS: Erythrocyte Sedimentation Rate 44 mm/hr (0-30)
[2020-02-26 15:19] LABS: Absolute Lymphocyte Count 0.98 X10^3/uL (0.83-4.51); Basophil# 0.06 X10^3/uL; Basophil% 0.8 % (0-1); Eosinophil# 0.04 X10^3/uL; Eosinophils% 0.5 % (0-5); Hematocrit 38.4 % (37-47); Hemoglobin 12.5 g/dL (12.0-15.0); Lymphocyte # 0.98 X10^3/ul (4.0); Lymphocyte % 12.9 % (19-41); Mean Corp Hgb Conc 32.6 g/dL (32-36); Mean Corpuscular Hgb 30.3 pg (27.0-32.0); Mean Corpuscular Volume 93.2 fL (81-99); Monocyte# 0.52 X10^3/uL; Monocyte% 6.9 % (0-10); NRBC Flagged by Analyzer 0 % (0-5); Neutrophil # 5.97 X10^3/uL (2.7-7.7); Neutrophil % 78.6 % (47-70); Platelet Count 240 K/mm3 (150-450); RBC Distribution Width CV 13.4 % (11.6-14.6); RBC Distribution Width SD 45.5 fl (35.1-43.9); Red Blood Count 4.12 M/mm3 (4.2-5.4); White Blood Count 7.6 K/mm3 (4.4-11.0)
[2020-02-26 15:22] LABS: Color, Urine Straw (Yellow); Glucose, Dipstick Normal (Normal); Ketone-Dipstick Negative (Negative); Leukocyte Esterase-Dipstick 25 /ul (Negative); Nitrite-Dipstick Negative (Negative); Occult Blood-Urine Negative /ul (Negative); Protein-Dipstick Negative (Negative); Specific Gravity, Urine 1.015 (1.002-1.030); Urine Bilirubin Dipstick Negative (Negative); Urine Clarity Clear (Clear); Urine Urobilinogen Normal (Normal)
[2020-02-26 15:49] LABS: Bacteria 2+ /hpf (None Seen); Hyaline Cast 0-5 SEEN /lpf (0-5); Renal Epithelial Cells 0-5 SEEN /hpf (0-5); Squamous Epithelial Cells - UA 0-5 SEEN /hpf (5-10); White Blood Cells 0-5 SEEN /hpf (0-5)
[2020-02-26 15:50] LABS: White Cell Cast 0-5 SEEN /lpf (None Seen)
[2020-02-26 15:54] LABS: ALB/GLOB Ratio 0.8 RATIO (0.9-2.4); AST(SGOT) 52 U/L (15-37); Alanine Aminotransfer ALT/SGPT 72 U/L (13-56); Albumin, Serum 3.3 g/dL (3.2-5.0); Alkaline Phosphatase 106 U/L (45-117); Anion Gap 7 (5-15); BUN 25 mg/dL (7-18); BUN/Creat Ratio 23.6 RATIO (10-20); CRP 6.07 mg/L (0.0-3.0); Calcium,Total 9.5 mg/dL (8.5-10.1); Chloride 104 mmol/L (98-107); Creatinine, Serum 1.06 mg/dL (0.55-1.02); EST Glomerular Filtration Rate 53 mL/min (>60); Est Glom Filt Rate - Afr Amer 64 mL/min (>60); Glucose 112 mg/dL (74-106); Potassium 3.8 mmol/L (3.5-5.1); Prealbumin 24.3 mg/dL (20.0-40.0); Protein, Total 7.3 g/dL (6.4-8.2); Sodium Level 140 mmol/L (136-145); T4 Free Direct 1.26 ng/dL (0.76-1.46); Thyroid Stim Hormone (TSH) 0.94 uIU/mL (0.358-3.74)
== END ==
PROVIDERS: PCP Family Medicine; Visit Provider Family Medicine
DX: R53.83 Other fatigue (principal); R53.1 Weakness; M25.511 Pain in right shoulder; M25.512 Pain in left shoulder; R63.4 Abnormal weight loss; R41.0 Disorientation, unspecified
CPT/HCPCS: 36415; 80053; 81001; 84134; 84439; 84443; 85025; 85652; 86140

== ENCOUNTER 2020-03-02 22:28 | Inpatient (IN) | payer MEDICARE, BC, SELFPAY ==
[2020-03-02 22:28] VITALS: BP 144/89; PULSE 65; RESP 20; TEMP 36.2; O2SAT 96; BMI 18.6
--- NOTE | 2020-03-02 22:46 | CT_ITS ---
STUDY: CT ABDOMEN AND PELVIS WITHOUT CONTRAST REASON FOR EXAM: Female, 80 years old. ABDOMEN PAIN AND VOMITING SINCE SUNDAY,NAUSEA -- HX:HTN,GERD,DEMENTIA,POLYCYSTIC KIDNEY Disease, liver CYSTS -- PRIOR APPENDECTOMY,HERNIA REPAIR RADIATION DOSAGE (If Supplied By Facility): CTDIvol = ( 6.11 ) mGy, DLP = ( 277.93 ) mGycm TECHNIQUE: Transaxial images were obtained from the dome of the diaphragm to the symphysis pubis without oral contrast, and without intravenous contrast. Sagittal and coronal images were reconstructed. Individualized dose optimization techniques were used for this CT. COMPARISON: 02/25/[address] of the chest dated 02/17/2015. FINDINGS: The visualized lung bases are unremarkable. There are coronary artery calcifications present. The lack of intravenous contrast limits evaluation of solid organs. There are multiple low-attenuation foci throughout the liver consistent with underlying cysts. There are scattered cysts with calcifications within the liver visualized as well. Normal gallbladder and extrahepatic biliary system. Normal spleen. Normal pancreas. Normal bilateral adrenal glands. There are multiple cysts throughout enlarged kidneys consistent with a history of polycystic kidney disease. There are scattered partially calcified renal cyst. Normal visualized stomach. Normal small intestine. There are multiple colonic diverticula consistent with diverticulosis. There is a moderate amount of stool throughout the colon. There is non-visualization of the appendix. There is diffuse atherosclerotic calcification of the abdominal aorta, without a demonstrated aneurysm. Normal inferior vena cava. Normal retroperitoneum. Normal urinary bladder. Normal abdominal wall. There are diffuse degenerative changes of the visualized lumbar spine. There is a stable superior endplate deformity of L1. CT/Abdomen/Pelvis without Cont IMPRESSION: Moderate amount of stool throughout the colon. Colonic diverticulosis. Enlarged kidneys associated with multiple cysts consistent with a history of polycystic kidney disease. Hepatic cysts. Atherosclerosis. Electronically Signed: Khushbu Tirado MD at 23:34 EDT Tel , Service support ,
--- NOTE | 2020-03-02 22:47 | ED.VIS.GEN ---
History of Present Illness Chief Complaint: Nausea/Vomiting Informant: Patient, Family Narrative: Patient presents with nausea and vomiting for the last 3 days. She had 2 episodes of emesis on Sunday and Sunday and 4-5 episodes of emesis today. She saw her family doctor yesterday and was given Zofran took 1 tablet tonight with minimal relief. She has had decreased oral intake secondary to nausea. She has never had this happen before. Denies any abdominal pain fevers or chills. Denies any urinary symptoms. Approximately 2 weeks ago she was weak and had lab work per daughter showed no significant infection. No sick contacts. Nothing that the family can think of that brought this on. No fevers or chills. History of hernia surgery in the past on her abdomen. Denies back pain or other back pain at all. She stated she feels weak and tired. - Past Medical History (1) Depression Status: Chronic (2) HTN (hypertension) Status: Chronic (3) H/O detached retina repair Status: Resolved Comment: 2006 and 2007 (4) H/O hernia repair Status: Resolved Comment: 2008 (5) Hx of appendectomy Status: Resolved Comment: (6) Hx of cataract surgery Status: Resolved Past Medical History - Allergies and Home Meds Allergies/Adverse Reactions: Allergies No Known Allergies Allergy (Verified 01/12/20 16:00) Primary Care Physician: Cuong Melton DO [Primary Care Provider] - Prior records reviewed: Yes Past Medical History: - - See HPI Surgical History: herniorrhaphy Lives: With Family Smoking Status: Never smoker Alcohol: None Drugs: None - Family History Paternal Family History: Family History (Last Reviewed 09/11/18 @ 11:[address] Chi Gonzales MD) Father Cancer Family History: Reports: No pertinent history - of old age Maternal Family History: Family History (Last Reviewed 09/11/18 @ 11:[address] Chi Gonzales MD) Father Cancer Family History: Reports: Dementia Review of Systems General: Denies: Chills, Fever, Sweats Eyes: Denies: Visual changes - bilaterally, Diplopia ENT: Denies: Rhinorrhea, Sore throat Cardiovascular: Denies: Chest pain, Palpitations Respiratory: Denies: Dyspnea, Cough, Dyspnea on exertion Gastrointestinal: Reports: Nausea, Vomiting. Denies: Abdominal pain, Diarrhea, Melena, Hematochezia Genitourinary: Denies: Dysuria, Hematuria, Frequency Musculoskeletal: Denies: Back pain, Extremity Pain Skin: Denies: Rash, Wounds Neurological: Reports: Weakness. Denies: Headache, Numbness Physical Exam Vital Signs/Narrative: Vital Signs Temp Pulse Resp BP Pulse Ox 03/02/20 22:28 97.2 F L 65 20 H 144/89 H 96 General: Well nourished, Well developed, No Acute Distress, - - Patient appears weak and tired Head: Normocephalic, Atraumatic Eyes: Perrl, EOMI ENT: Moist mucous membranes, No rhinorrhea Neck: Supple, Nontender Cardiovascular: Regular rate, Regular rhythm, No murmurs Respiratory: No distress, CTA bilaterally, Chest nontender Abdomen: Soft, Nontender, Nondistended, Normal bowel sounds Back: Nontender, Normal Inspection Extremities: Nontender, No edema Skin: Normal color, No rash Neurological: Alert, Oriented x3, Cranial nerves II-XII grossly intact, Normal Sensation, Weakness Psychological: Normal affect, Normal Mood Diagnostic/Tx/Re-eval - Medical Decision Making IV established given IV fluids and Zofran. Lab work and CT abdomen pelvis obtained. Lab work shows AST this mildly elevated. Lipase normal. CBC shows no leukocytosis but a left shift noted with a count just above 10. BUN and creatinine normal. Other electrolytes grossly unremarkable. CT abdomen pelvis shows chronic renal liver cyst with no acute abnormalities. Urinalysis shows no significant evidence of infection. No whites in her urine. She does have 1+ bacteria. I did send a culture. I will hold off however on antibiotics due to the fact that she has no white cells leukocytes or nitrites. This may be just be mild contaminant. Patient felt better after fluids. She is not having vomiting in the department. She had very little urine output I feel she is likely experiencing some dehydration from her nausea vomiting and decreased oral intake. Will be admitted for IV fluid therapy and antiemetics and further monitoring. ED Disposition - Plan for ED Patient: Disposition: Acute Care Hospital [facility] Diagnosis: Nausea and vomiting, Dehydration
[2020-03-02] MEDS: Ondansetron 4 MG/2 ML Vial IV (22:55)
[2020-03-02] MEDS: 0.9% Normal Saline 1,000 ML 1000 ML IV (23:01)
[2020-03-02 23:18] LABS: ALB/GLOB Ratio 0.8 RATIO (0.9-2.4); AST(SGOT) 78 U/L (15-37); Alanine Aminotransfer ALT/SGPT 20 U/L (13-56); Albumin, Serum 3.2 g/dL (3.2-5.0); Alkaline Phosphatase 93 U/L (45-117); Anion Gap 8 (5-15); BUN 15 mg/dL (7-18); BUN/Creat Ratio 19.1 RATIO (10-20); Calcium,Total 9.5 mg/dL (8.5-10.1); Chloride 102 mmol/L (98-107); Creatinine, Serum 0.78 mg/dL (0.55-1.02); EST Glomerular Filtration Rate 75 mL/min (>60); Est Glom Filt Rate - Afr Amer 91 mL/min (>60); Estimated Creatinine Clearance 32.77 ml/min; Globulin 4.1 g/dL (2.2-4.2); Glucose 130 mg/dL (74-106); Lipase 142 U/L (73-393); Protein, Total 7.3 g/dL (6.4-8.2); Sodium Level 137 mmol/L (136-145)
[2020-03-02 23:25] LABS: Absolute Lymphocyte Count 0.98 X10^3/uL (0.83-4.51); Absolute Neutrophil Count 8.7 X10^3/uL (2.0-7.7); Basophil# 0.05 X10^3/uL; Basophil% 0.5 % (0-1); Eosinophil# 0.03 X10^3/uL; Eosinophils% 0.3 % (0-5); Hematocrit 35.3 % (37-47); Hemoglobin 11.7 g/dL (12.0-15.0); Lymphocyte # 0.98 X10^3/ul (4.0); Lymphocyte % 9.4 % (19-41); Mean Corp Hgb Conc 33.1 g/dL (32-36); Mean Corpuscular Hgb 29.9 pg (27.0-32.0); Mean Corpuscular Volume 90.3 fL (81-99); Mean Platelet Vol. 10.5 fl (6.2-12.0); Monocyte# 0.68 X10^3/uL; Monocyte% 6.5 % (0-10); NRBC Flagged by Analyzer 0 % (0-5); Neutrophil # 8.69 X10^3/uL (2.7-7.7); Platelet Count 219 K/mm3 (150-450); RBC Distribution Width CV 13.5 % (11.6-14.6); RBC Distribution Width SD 43.9 fl (35.1-43.9); Red Blood Count 3.91 M/mm3 (4.2-5.4); White Blood Count 10.5 K/mm3 (4.4-11.0)
[2020-03-02 23:36] LABS: Color, Urine Yellow (Yellow); Glucose, Dipstick Normal (Normal); Ketone-Dipstick 50 mg/dl (Negative); Leukocyte Esterase-Dipstick Negative /ul (Negative); Mucous, Urine 0 SEEN /hpf (<or=2+); Nitrite-Dipstick Negative (Negative); Occult Blood-Urine 25 /ul (Negative); Protein-Dipstick 15 mg/dl (Negative); Squamous Epithelial Cells - UA 0 SEEN /hpf (5-10); Urine Bilirubin Dipstick Negative (Negative); Urine Clarity Clear (Clear); Urine Urobilinogen Normal (Normal); White Blood Cells 0 SEEN /hpf (0-5)
[2020-03-02 23:42] LABS: Bacteria 1+ /hpf (None Seen); Red Blood Cells-Urine 0-5 SEEN /hpf (0-5)
[2020-03-02 23:43] LABS: Yeast-Urine RARE /hpf (None Seen)
[2020-03-03] VITALS (7 sets, daily range): BP systolic 121–147; BP diastolic 64–74; PULSE 62–83; RESP 16–24; TEMP 36.6–37.2; O2SAT 94–97; BMI 19.4; BMI 19.5
--- NOTE | 2020-03-03 00:02 | HP.PCM_ITS ---
Problem List (1) Gastritis Status: Acute (2) Nausea and vomiting Status: Acute (3) Dehydration Status: Acute (4) H/O hernia repair Status: Chronic Comment: 2008 (5) H/O detached retina repair Status: Chronic Comment: 2006 and 2007 (6) Hx of appendectomy Status: Chronic Comment: (7) HTN (hypertension) Status: Chronic (8) Depression Status: Chronic History of Present Illness Date of Admission: 03/03/20 Chief Complaint: nausea and vomiting The patient is a 80 year old F with a significant history of depression; hypertension; and essential tremors who presents to the emergency department with nausea and vomiting x3 days. Her PCP gave her Zofran. However her symptoms has not been relieved with Zofran. Associated with her symptoms is low-grade fever, chills and weakness. The last time her bowels moved was a day before presentation. At the emergency department patient had a low urine output so emergency point doctor considered that patient may be dehydrated and recommended the patient be admitted. Past Medical History Past Medical History (Chronic Problems): Chronic Problems (Last Reviewed 03/03/20 @ 00:[address] Duran Mcginnis MD) H/O hernia repair (Chronic) 2008 H/O detached retina repair (Chronic) 2006 and 2007 Hx of appendectomy (Chronic) HTN (hypertension) (Chronic) Depression (Chronic) Medical History: Medical History (Last Reviewed 03/03/20 @ 05:[address] Duran Mcginnis MD) HTN (hypertension) (Chronic) I10 Depression (Chronic) F32.9 Allergies No Known Allergies Allergy (Verified 01/12/20 16:00) Home Medications: Ambulatory Orders Medication Instructions Recorded Cholecalciferol (VIT D3) [Vitamin 5,000 unit PO DAILY 02/17/15 D3] Lisinopril [Zestril] 10 mg PO DAILY 02/17/15 fluoxetine 10 mg capsule 40 mg PO BID 09/11/18 Mirabegron [Myrbetriq] 25 mg PO DAILY 08/06/19 Omeprazole 40 mg PO DAILY 08/06/19 Propranolol HCl 10 mg PO DAILY 08/06/19 Calcium Carbonate [Calcium] 600 mg PO BID 01/12/20 Carbidopa/Levodopa [Sinemet 1 tab PO TID 03/02/20] Donepezil HCl 10 mg PO QHS 03/02/20 Ondansetron [Zofran Odt] 4 mg PO Q4H PRN PRN 03/02/20 Surgical History: Surgical History (Last Reviewed 03/03/20 @ 05:[address] Duran Mcginnis MD) Hx of cataract surgery (Inactive) Z98.49 H/O hernia repair (Chronic) Z98.890, Z87.19 2009 H/O detached retina repair (Chronic) Z98.890, Z86.69 2007 and 2008 Hx of appendectomy (Chronic) Z90.49 1960's Surgical History: herniorrhaphy Psychiatric History: Depression Lives: With Family Smoking Status: Never smoker Alcohol: None Drugs: None - *Family History Paternal Family History: Family History (Last Reviewed 03/03/20 @ 05:[address] Duran Mcginnis MD) Father Cancer History Items: No pertinent history - of old age Maternal Family History: Family History (Last Reviewed 03/03/20 @ 05:[address] Duran Mcginnis MD) Father Cancer History Items: Dementia Review of Systems Constitutional: Reports: Chills, Fever. Denies: Weight Change HEENT: Denies: Head Aches, Sinus Congestion, Sinus Drainage Cardiovascular: Denies: Chest Pain, Palpitations Respiratory: Denies: Cough, Shortness of breath at rest, Sputum production Gastrointestinal: Reports: Nausea, Vomiting. Denies: Abdominal Pain Genitourinary: Denies: Dysuria Musculoskeletal: Denies: Joint Pain, Joint Tenderness Skin: Denies: Rash, Wounds Neurological: Denies: Numbness, Tingling, Focal weakness Psychiatric: Denies: Anxiety, Depression, Homicidal Ideations, Suicidal Ideations Hematologic/ Lymphatic: Denies: Easy Bruising, Easy Bleeding VTE Information - Inpt Only VTE Present on Admission: No VTE Mechan Device Prophylaxis: None VTE Pharm Prophylaxis ordered?: Yes Patient Problems: Active and Suspected Problems (Last Reviewed 03/03/20 @ 00:[address] Duran Mcginnis MD) Nausea and vomiting (Acute) Dehydration (Acute) Gastritis (Acute) - Physical Exam Vitals/I&O's: Vital Signs Temp Pulse Resp BP Pulse Ox 97.2 F L 65 20 H 144/89 H 96 03/02/20 22:28 03/02/20 22:28 03/02/20 22:28 03/02/20 22:28 03/02/20 22:28 Oxygen Delivery Method Room Air Weight: 46.266 kg Body Mass Index (BMI) 18.6 General: Alert, Oriented x3, Cooperative HEENT: Atraumatic, PERRLA, EOMI, Normocephalic Neck: Supple, No JVD, Negative Carotid Bruits Lungs: Clear to auscultation, Normal air movement Cardiovascular: Regular rate, Regular Rhythm, Normal S1, Normal S2, No murmurs Abdomen: Bowel Sounds Present, Soft, Non Tender Extremities: No edema, Capillary Refill Less than 3 Seconds Skin: No rashes, No breakdown Musculoskeletal: No Tenderness to Palpation of Joints or Extremities Neurological: Cranial nerves II-XII grossly intact Psych/Mental Status: Normal Affect, Appropriate Laboratory Results 03/02/20 22:50: WBC 10.5, RBC 3.91 L, Hgb 11.7 L, Hct 35.3 L, MCV 90.3, MCH 29.9, MCHC 33.1, RDW Std Deviation 43.9, RDW Coeff of Danica 13.5, Plt Count 219, MPV 10.5, Immature Gran % (Auto) 0.300, Neut % (Auto) 83.0 H, Lymph % (Auto) 9.4 L, [place] % (Auto) 6.5, Eos % (Auto) 0.3, Baso % (Auto) 0.5, Absolute Neuts (auto) 8.7 H, Absolute Lymphs (auto) 0.98, Nucleated RBC % 0 03/02/20 22:50: Sodium 137, Potassium 4.0, Chloride 102, Carbon Dioxide 27.0, Anion Gap 8, BUN 15, Creatinine 0.78, Estim Creat Clear Calc 32.77, Est GFR (MDRD) Af Amer 91, Est GFR (MDRD) Non-Af 75, BUN/Creatinine Ratio 19.1, Glucose 130 H, Calcium 9.5, Total Bilirubin 0.50, AST 78 H, ALT 20, Alkaline Phosphatase 93, Total Protein 7.3, Albumin 3.2, Globulin 4.1, Albumin/Globulin Ratio 0.8 L, Lipase 142 03/02/20 23:25: Urine Color Yellow, Urine Clarity Clear, Urine pH 7.0, Ur Specific [place] 1.020, Urine Protein 15 H, Urine Glucose (UA) Normal, Urine Ketones 50 H, Urine Occult Blood 25 H, Urine Nitrite Negative, Urine Bilirubin Negative, Urine Urobilinogen Normal, Ur Leukocyte Esterase Negative, Urine RBC 0-5 SEEN, Urine WBC 0 SEEN, Ur Squamous Epith Cells 0 SEEN, Urine Bacteria 1+, Urine Mucus 0 SEEN, Urine Yeast RARE Current Medications Sodium Chloride () 1,000 mls @ 150 mls/hr IV .[id number] [facility] Assessment/Plan All Active Problems (Last Reviewed 03/03/20 @ 00:[address] Duran Mcginnis MD) Nausea and vomiting (Acute) Dehydration (Acute) Gastritis (Acute) Chest pain (Resolved) Hypokalemia (Resolved) The patient is a 80 year old F with a significant history of depression; hypertension; and essential tremors who presents emergency department with nausea and vomiting x3 days; low-grade fever; chills; weakness and low urinary output. Acute gastritis Received normal saline and IV Zofran at the emergency department. Continue supportive treatment with lactated Ringer's Ringer's and IV Zofran PRN. Clear liquids ordered. Continue home p.o. meds. Change p.o. meds to IV where possible. Dehydration Low urine output at the emergency department likely secondary to nausea and vomiting. IV hydration as above Trend BMP. Of note BUN is normal. Essential tremor Reportedly was originally on propanolol but now on Sinemet. Sinemet continued Depression Fluoxetine continued Dementia Donepezil continued Hypertension Blood pressure is stable in regards to her age Lisinopril continued GERD On home Prilosec; change to IV Prilosec. Abnormal urinalysis: Patient with 1+ bacteria but negative leukocyte esterase and negative nitrites. Urine culture was ordered at the emergency department; follow. DVT prophylaxis Subcutaneous Lovenox. OBSV E&M: [id number] Initial observation care L3
[2020-03-03] MEDS: 0.9% Normal Saline 1,000 ML 150 ML IV (00:10)
[2020-03-03] MEDS: Lactated Ringers 1,000 ML 100 ML IV ×3 (02:44→22:43)
[2020-03-03] MEDS: Carbidopa/Levodopa 10/100 Tablet PO ×3 (05:38→18:31)
[2020-03-03 05:42] LABS: Absolute Lymphocyte Count 1.36 X10^3/uL (0.83-4.51); Absolute Neutrophil Count 5.4 X10^3/uL (2.0-7.7); Basophil# 0.03 X10^3/uL; Basophil% 0.4 % (0-1); Hematocrit 31.5 % (37-47); Hemoglobin 10.2 g/dL (12.0-15.0); Lymphocyte # 1.36 X10^3/ul (4.0); Lymphocyte % 18.6 % (19-41); Mean Corp Hgb Conc 32.4 g/dL (32-36); Mean Corpuscular Hgb 30.3 pg (27.0-32.0); Mean Corpuscular Volume 93.5 fL (81-99); Mean Platelet Vol. 10.2 fl (6.2-12.0); Monocyte# 0.53 X10^3/uL; Monocyte% 7.3 % (0-10); NRBC Flagged by Analyzer 0 % (0-5); Neutrophil # 5.35 X10^3/uL (2.7-7.7); Neutrophil % 73.3 % (47-70); Platelet Count 177 K/mm3 (150-450); RBC Distribution Width CV 13.3 % (11.6-14.6); RBC Distribution Width SD 45.4 fl (35.1-43.9); Red Blood Count 3.37 M/mm3 (4.2-5.4); White Blood Count 7.3 K/mm3 (4.4-11.0)
[2020-03-03 06:00] LABS: Anion Gap 8 (5-15); BUN 11 mg/dL (7-18); BUN/Creat Ratio 17.3 RATIO (10-20); Calcium,Total 8.2 mg/dL (8.5-10.1); Chloride 107 mmol/L (98-107); Creatinine, Serum 0.64 mg/dL (0.55-1.02); EST Glomerular Filtration Rate 95 mL/min (>60); Est Glom Filt Rate - Afr Amer 115 mL/min (>60); Estimated Creatinine Clearance 32.02 ml/min; Glucose 95 mg/dL (74-106); Potassium 3.4 mmol/L (3.5-5.1); Sodium Level 141 mmol/L (136-145)
[2020-03-03] MEDS: Ondansetron 4 MG/2 ML Vial IV ×2 (06:47→14:48)
[2020-03-03] MEDS: Lisinopril 10 MG Tablet PO (10:24)
[2020-03-03] MEDS: Enoxaparin 40 MG/0.4 ML Syringe SC (10:24)
[2020-03-03] MEDS: Mirabegron 25 MG TAB.ER.24H PO (10:25)
[2020-03-03] MEDS: FLUoxetine 20 MG Capsule 40 MG PO ×2 (10:25→22:43)
[2020-03-03] MEDS: Ensure Clear 120 ML Liquid PO ×3 (10:35→18:28)
[2020-03-03] MEDS: Bisacodyl 5 MG Tablet 10 MG PO (10:52)
--- NOTE | 2020-03-03 11:20 | CASEMGMT ---
RN CHERISE Face to Face with patient for initial transition planning/care coordination assessment. RN CM introduced self and role at [facility]. Patient lying in bed, alert and oriented, but very tired. Patient willing to participate in assessment and is able to answer all questions appropriately. Care providers, pharmacy, and demographics verified. Patient wishes to discharge home, denies need for home health at this time, will monitor for need for HHC. Patient states she has no further needs or concerns at this time. CM to follow for discharge planning needs that may arise. PCP: Geronimo Specialists: None Preferred Pharmacy: [facility] retail Insurance: Sukhjinder FRANCO Prescription Benefit: yes Living Will/HPOA: yes, daughter Ольга Fisher LNOK: , daughters Living Arrangements: Patient lives with in daughter's home on main level. Patient states she has been requiring assistance for ADLs. Patient states she and has care givers 8 hours per day 5-6 days per week. Transportation: daughter DME/HHC: Patient states she has shower chair, raised toilet, grab bars, walker, wheelchair, and adjustable bed. Patient has previously been to [facility]. Patient has also been going to [facility]. Disposition Plan: Patient to discharge home with family support and follow-up plans in place. Will monitor for need for HHC. Noemy HUYNH, RN, CM
--- NOTE | 2020-03-03 14:11 | PN_ITS ---
Patient Problems: Active and Suspected Problems (Last Reviewed 03/03/20 @ 05:[address] Duran Mcginnis MD) Nausea and vomiting (Acute) Dehydration (Acute) Gastritis (Acute) Reason for Visit: nausea and vomiting Subjective: no further N/V. No BM in several days. Worse tremor. Vitals/I&O's: Vital Signs Temp Pulse Resp BP Pulse Ox 36.8 C 80 18 123/68 H 94 03/03/20 10:21 03/03/20 10:21 03/03/20 10:21 03/03/20 10:21 03/03/20 11:12 Oxygen Delivery Method Room Air Weight: 45.2 kg Body Mass Index (BMI) 19.4 Intake and Output for Last 24 Hours 03/01/20 03/02/20 03/03/20 23:59 23:59 23:59 Intake Total 1655 / 1655 Output Total 600 / 600 Balance 1055 / 1055 General: Alert, No apparent distress, - - tremulous HEENT: Atraumatic, Normocephalic Oral: Moist Mucosa, No Gingival or Mucosal Lesions/ Ulcerations Neck: No Nodes, Thyroid Normal Size and Texture Lungs: Clear to auscultation, Normal air movement, No rhonchi, No wheeze Cardiovascular: Regular rate, Regular Rhythm, Normal S1, Normal S2 Abdomen: Bowel Sounds Present, Soft, Non Tender, Non-Distended, No Hepato-splenomegaly Extremities: No edema, No Calf Tenderness Skin: No rashes, No breakdown Psych/Mental Status: Appropriate, Flat Affect Laboratory Results 03/02/20 22:50: WBC 10.5, RBC 3.91 L, Hgb 11.7 L, Hct 35.3 L, MCV 90.3, MCH 29.9, MCHC 33.1, RDW Std Deviation 43.9, RDW Coeff of Danica 13.5, Plt Count 219, MPV 10.5, Immature Gran % (Auto) 0.300, Neut % (Auto) 83.0 H, Lymph % (Auto) 9.4 L, [place] % (Auto) 6.5, Eos % (Auto) 0.3, Baso % (Auto) 0.5, Absolute Neuts (auto) 8.7 H, Absolute Lymphs (auto) 0.98, Nucleated RBC % 0 03/02/20 22:50: Sodium 137, Potassium 4.0, Chloride 102, Carbon Dioxide 27.0, Anion Gap 8, BUN 15, Creatinine 0.78, Estim Creat Clear Calc 32.77, Est GFR (MDRD) Af Amer 91, Est GFR (MDRD) Non-Af 75, BUN/Creatinine Ratio 19.1, Glucose 130 H, Calcium 9.5, Total Bilirubin 0.50, AST 78 H, ALT 20, Alkaline Phosphatase 93, Total Protein 7.3, Albumin 3.2, Globulin 4.1, Albumin/Globulin Ratio 0.8 L, Lipase 142 03/02/20 23:25: Urine Color Yellow, Urine Clarity Clear, Urine pH 7.0, Ur Specific [place] 1.020, Urine Protein 15 H, Urine Glucose (UA) Normal, Urine Ketones 50 H, Urine Occult Blood 25 H, Urine Nitrite Negative, Urine Bilirubin Negative, Urine Urobilinogen Normal, Ur Leukocyte Esterase Negative, Urine RBC 0-5 SEEN, Urine WBC 0 SEEN, Ur Squamous Epith Cells 0 SEEN, Urine Bacteria 1+, Urine Mucus 0 SEEN, Urine Yeast RARE 03/03/20 05:24: WBC 7.3, RBC 3.37 L, Hgb 10.2 L, Hct 31.5 L, MCV 93.5, MCH 30.3, MCHC 32.4, RDW Std Deviation 45.4 H, RDW Coeff of Danica 13.3, Plt Count 177, MPV 10.2, Immature Gran % (Auto) 0.400, Neut % (Auto) 73.3 H, Lymph % (Auto) 18.6 L, [place] % (Auto) 7.3, Eos % (Auto) 0.0, Baso % (Auto) 0.4, Absolute Neuts (auto) 5.4, Absolute Lymphs (auto) 1.36, Nucleated RBC % 0 03/03/20 05:24: Sodium 141, Potassium 3.4 L, Chloride 107, Carbon Dioxide 26.0, Anion Gap 8, BUN 11, Creatinine 0.64, Estim Creat Clear Calc 32.02, Est GFR (MDRD) Af Amer 115, Est GFR (MDRD) Non-Af 95, BUN/Creatinine Ratio 17.3, Glucose 95, Calcium 8.2 L Current Medications Acetaminophen (Tylenol) 650 mg PO Q6H PRN PRN PRN Reason: Pain Score 1-10/Temp > 100.7 F Carbidopa/Levodopa (Sinemet) 1 tablet PO TIDAC [facility] Last Admin: 03/03/20 10:52 Dose: 1 tablet Documented by: Cholecalciferol (Vitamin D (25mcg)) 5,000 unit PO DAILY [facility] Last Admin: 03/03/20 10:24 Dose: 5,000 unit Documented by: Donepezil HCl (Aricept) 10 mg PO QHS [facility] Enoxaparin Sodium (Lovenox) 40 mg SC DAILY [facility] Last Admin: 03/03/20 10:24 Dose: 40 mg Documented by: Fluoxetine HCl (Prozac) 40 mg PO BID [facility] Last Admin: 03/03/20 10:25 Dose: 40 mg Documented by: Lactated Ringer's () 1,000 mls @ 100 mls/hr IV .Q10H [facility] Last Infusion: 03/03/20 03:40 Dose: 100 mls/hr Documented by: Pantoprazole Sodium 40 mg/ (Sodium Chloride) 110 mls @ 330 mls/hr IV Q24 [facility] Last Admin: 03/03/20 10:35 Dose: Not Given Documented by: Sodium Chloride () 250 mls @ 15 mls/hr IV .[id number] PRN PRN Reason: Saline Flush Lisinopril (Zestril) 10 mg PO DAILY [facility] Last Admin: 03/03/20 10:24 Dose: 10 mg Documented by: Melatonin (Melatonin) 3 mg PO QHS PRN PRN PRN Reason: INSOMNIA Mirabegron (Myrbetriq) 25 mg PO DAILY [facility] Last Admin: 03/03/20 10:25 Dose: 25 mg Documented by: Nutritional Formula (Lactose Free) (Ensure Clear) 120 ml PO 4X/DAY [facility] Last Admin: 03/03/20 10:35 Dose: 120 ml Documented by: Ondansetron HCl (Zofran) 4 mg IV Q8H PRN PRN PRN Reason: NAUSEA/VOMITING Last Admin: 03/03/20 06:47 Dose: 4 mg Documented by: Sodium Chloride () 10 - 40 ml IV UD PRN PRN Reason: SALINE FLUSH STROKE Vital Signs/Narrative: Vital Signs Temp Pulse Resp BP Pulse Ox 03/03/20 11:12 94 03/03/20 10:21 36.8 C 80 18 123/68 H 96 Medical Necessity - Tobacco Use Smoking Status: Never smoker Assessment/Plan All Active Problems (Last Reviewed 03/03/20 @ 05:[address] Duran Mcginnis MD) Nausea and vomiting (Acute) Dehydration (Acute) Gastritis (Acute) Chest pain (Resolved) Hypokalemia (Resolved) 1. nausea and vomiting: improved. likely due to constipation. 2. constipation: give Dulcolax and eval for response. Add Miralax. 3. debility: PT OT. additional therapy recommended 4. Essential tremor: however on sinemet. Complicates care. Recommend follow up with neurology as outpt. 5. VTE prophylaxis. LMWH Inpatient E&M: [id number] Subs Hosp L2
--- NOTE | 2020-03-03 15:07 | NS ---
Pt states she required total assistance w/ feeding at home. rn testing notified. FIELD ACCOUNT DIRECTOR in room to assist w/ lunch. Stewart Levy MS, RDN, LD
[2020-03-03] MEDS: Donepezil HCl 10 MG Tablet PO (22:43)
[2020-03-04] MEDS: Carbidopa/Levodopa 10/100 Tablet PO ×3 (05:27→15:48)
[2020-03-04] MEDS: Ondansetron 4 MG/2 ML Vial IV ×2 (05:27→13:47)
[2020-03-04] MEDS: 0.9% Saline Lock 10 ML Syringe IV ×2 (05:27→13:47)
[2020-03-04 05:32] VITALS: BP 143/70; PULSE 67; RESP 16; TEMP 36.6; O2SAT 96
[2020-03-04 07:50] VITALS: BP 153/83; PULSE 63; RESP 16; TEMP 36.4; O2SAT 95
[2020-03-04] MEDS: Acetaminophen 325 MG Tablet 650 MG PO ×2 (07:55→17:50)
[2020-03-04] MEDS: Lisinopril 10 MG Tablet PO (07:55)
[2020-03-04] MEDS: Lactated Ringers 1,000 ML 100 ML IV ×2 (07:56→17:41)
--- NOTE | 2020-03-04 10:16 | NURSING ---
called to room by NURSING INSTRUCTOR/secretary to board of commissioners Karen stating pt with facial droop that wasn't noticed earlier. Into room pt up to chair. questionable left facial droop primary RN Claudine to room stating this appearance is new to patient, droop not as noticable with smile. Chronic tremors noted. 8600called for stroke alert. , Valerie MEETING FACILITATOR and Radha Hurd FELLED SEAM OPERATOR to bedside. OT checked. Claudine MARTINEZ calling [facility] number. Aware NIH score 0 per Radha MARTINEZ. Aware per Dr. Singh to cancel stroke alert.
--- NOTE | 2020-03-04 10:23 | NURSING ---
THIS NURSE CALLED TO ROOM FOR REPORT OF LT FACIAL DROOP PER STAFF MEMBER. LAST WELL CHECK ON PT WAS APPROX [id number] WHEN THIS NURSE ASSESSED PT, NO FACIAL DROOP NOTED AT THAT TIME. STROKE TEAM CALLED. PT MOVED FROM CHAIR TO BED BY STAFF. PT ASSESSED BY DR BORREGO AND STROKE TEAM AND IT IS WAS R/O A STROKE. BLOOD SUGAR 94. PT A&OX3.
[2020-03-04 10:26] LABS: Bedside Glucose 94 mg/dL (70-110)
[2020-03-04] MEDS: FLUoxetine 20 MG Capsule 40 MG PO ×2 (10:31→21:28)
[2020-03-04] MEDS: Enoxaparin 40 MG/0.4 ML Syringe SC (10:31)
[2020-03-04] MEDS: Ensure Clear 120 ML Liquid PO ×2 (10:35→21:28)
[2020-03-04] MEDS: Mirabegron 25 MG TAB.ER.24H PO (11:43)
--- NOTE | 2020-03-04 12:47 | PN_ITS ---
Patient Problems: Active and Suspected Problems (Last Reviewed 03/03/20 @ 05:[address] Duran Mcginnis MD) Nausea and vomiting (Acute) Dehydration (Acute) Gastritis (Acute) Reason for Visit: NV Subjective: Still tremulous. +BM Vitals/I&O's: Vital Signs Temp Pulse Resp BP Pulse Ox 36.4 C L 63 16 153/83 H 95 03/04/20 07:50 03/04/20 07:50 03/04/20 07:50 03/04/20 07:50 03/04/20 07:50 Oxygen Delivery Method Room Air Weight: 45.2 kg Body Mass Index (BMI) 19.4 Intake and Output for Last 24 Hours 03/02/20 03/03/20 03/04/20 23:59 23:59 23:59 Intake Total 3718.33 / 3718.33 1528.34 / 1528.34 Output Total 1300 / 1300 400 / 400 Balance 2418.33 / 2418.33 1128.34 / 1128.34 General: Alert, No apparent distress HEENT: Atraumatic, Normocephalic Oral: Moist Mucosa, No Gingival or Mucosal Lesions/ Ulcerations Neck: No Nodes, Thyroid Normal Size and Texture Lungs: Clear to auscultation, Normal air movement, No rhonchi, No wheeze, No rales Cardiovascular: Regular rate, Regular Rhythm, Normal S1, Normal S2, No murmurs Abdomen: Bowel Sounds Present, Soft, Non Tender, Non-Distended, No Hepato- splenomegaly Extremities: No edema, No Calf Tenderness Neurological: Cranial nerves II-XII grossly intact, Motor Exam 5/5 strength throughout - MS 4/4 throughout., Sensory exam intact to light touch and pain Psych/Mental Status: Appropriate, Flat Affect Microbiology Past 72 Hours 03/02/20 23:25 Urine Catheter - Catheter Urine Culture - Preliminary Culture exhibits no growth. Laboratory Results 03/04/20 10:18: POC Glucose 94 Current Medications Acetaminophen (Tylenol) 650 mg PO Q6H PRN PRN PRN Reason: Pain Score 1-10/Temp > 100.7 F Last Admin: 03/04/20 07:55 Dose: 650 mg Documented by: Carbidopa/Levodopa (Sinemet) 1 tablet PO TIDAC [facility] Last Admin: 03/04/20 10:31 Dose: 1 tablet Documented by: Cholecalciferol (Vitamin D (25mcg)) 5,000 unit PO DAILY [facility] Last Admin: 03/04/20 10:31 Dose: 5,000 unit Documented by: Donepezil HCl (Aricept) 10 mg PO QHS [facility] Last Admin: 03/03/20 22:43 Dose: 10 mg Documented by: Enoxaparin Sodium (Lovenox) 40 mg SC DAILY [facility] Last Admin: 03/04/20 10:31 Dose: 40 mg Documented by: Fluoxetine HCl (Prozac) 40 mg PO BID [facility] Last Admin: 03/04/20 10:31 Dose: 40 mg Documented by: Lactated Ringer's () 1,000 mls @ 100 mls/hr IV .Q10H [facility] Last Infusion: 03/04/20 10:42 Dose: 0 mls/hr Documented by: Pantoprazole Sodium 40 mg/ (Sodium Chloride) 110 mls @ 330 mls/hr IV Q24 [facility] Last Infusion: 03/04/20 10:55 Dose: Infused Documented by: Sodium Chloride () 250 mls @ 15 mls/hr IV .[id number] PRN PRN Reason: Saline Flush Lisinopril (Zestril) 10 mg PO DAILY [facility] Last Admin: 03/04/20 07:55 Dose: 10 mg Documented by: Melatonin (Melatonin) 3 mg PO QHS PRN PRN PRN Reason: INSOMNIA Mirabegron (Myrbetriq) 25 mg PO DAILY [facility] Last Admin: 03/04/20 11:43 Dose: 25 mg Documented by: Nutritional Formula (Lactose Free) (Ensure Clear) 120 ml PO 4X/DAY [facility] Last Admin: 03/04/20 10:35 Dose: 120 ml Documented by: Ondansetron HCl (Zofran) 4 mg IV Q8H PRN PRN PRN Reason: NAUSEA/VOMITING Last Admin: 03/04/20 05:27 Dose: 4 mg Documented by: Sodium Chloride () 10 - 40 ml IV UD PRN PRN Reason: SALINE FLUSH Last Admin: 03/04/20 05:27 Dose: 10 ml Documented by: Medical Necessity - Tobacco Use Smoking Status: Never smoker Assessment/Plan All Active Problems (Last Reviewed 03/03/20 @ 05:[address] Duran Mcginnis MD) Nausea and vomiting (Acute) Dehydration (Acute) Gastritis (Acute) Chest pain (Resolved) Hypokalemia (Resolved) 1. nausea and vomiting: improved. likely due to constipation. 2. constipation: resolved with Dulcolax add daily PRN miralax. 3. debility: PT OT. additional therapy recommended 4. Essential tremor: however on sinemet. Complicates care. Recommend follow up with neurology as outpt. 5. VTE prophylaxis. LMWH Stroke team called for presumed left facial droop. Stroke team arrived and evaluate the patient. Patient had an NIH score of 0. No additional stroke work-up was necessary and stroke team was canceled. Patient may have had a perceived left facial droop due to her poor dentition as she is missing a couple front teeth but also some of her masked facies as well. Inpatient E&M: [id number] [facility] Hosp L3
[2020-03-04 13:50] VITALS: BP 147/78; PULSE 70; RESP 14; TEMP 36.7; O2SAT 98
--- NOTE | 2020-03-04 19:00 | NURSING ---
pt sleeping, did not wake to adm protonix
[2020-03-04 20:00] VITALS: BP 140/67; PULSE 63; RESP 16; TEMP 36.6; O2SAT 97
[2020-03-04] MEDS: Pantoprazole Sodium 40 MG Tablet PO (21:27)
[2020-03-04] MEDS: Donepezil HCl 10 MG Tablet PO (21:29)
[2020-03-05] VITALS (7 sets, daily range): BP systolic 127–170; BP diastolic 55–91; PULSE 59–68; RESP 16–18; TEMP 36.6–37.2; O2SAT 95–99
[2020-03-05] MEDS: Carbidopa/Levodopa 10/100 Tablet PO (04:58)
[2020-03-05] MEDS: Lactated Ringers 1,000 ML 100 ML IV ×3 (04:58→23:46)
[2020-03-05] MEDS: Ondansetron 4 MG/2 ML Vial IV (07:22)
--- NOTE | 2020-03-05 10:11 | PN_ITS ---
Patient Problems: Active and Suspected Problems (Last Reviewed 03/03/20 @ 05:[address] Duran Mcginnis MD) Nausea and vomiting (Acute) Dehydration (Acute) Gastritis (Acute) Reason for Visit: intractable nausea and vomiting. Subjective: still with nausea and vomiting. Vitals/I&O's: Vital Signs Temp Pulse Resp BP Pulse Ox 36.6 C 59 L 16 133/80 H 98 03/05/20 08:30 03/05/20 08:30 03/05/20 08:30 03/05/20 08:30 03/05/20 08:30 Oxygen Flow Rate (L/min) 2 Oxygen Delivery Method Room Air Weight: 45.2 kg Body Mass Index (BMI) 19.4 Intake and Output for Last 24 Hours 03/03/20 03/04/20 03/05/20 23:59 23:59 23:59 Intake Total 3718.33 / 3718.33 1528.34 / 1728.34 1500 / 1500 Output Total 1300 / 1300 400 / 650 950 / 950 Balance 2418.33 / 2418.33 1128.34 / 1078.34 550 / 550 General: Alert, No apparent distress, - - actively spitting up copious saliva. HEENT: Atraumatic, Normocephalic Oral: Moist Mucosa, No Gingival or Mucosal Lesions/ Ulcerations Neck: No Nodes, Thyroid Normal Size and Texture Lungs: Clear to auscultation, Normal air movement, No rhonchi, No wheeze, No rales Cardiovascular: Regular rate, Regular Rhythm, Normal S1, Normal S2 Abdomen: Bowel Sounds Present, Soft, Non Tender, Non-Distended, No Hepato- splenomegaly Extremities: No edema, No Calf Tenderness Psych/Mental Status: Normal Affect, Appropriate Microbiology Past 72 Hours 03/02/20 23:25 Urine Catheter - Catheter Urine Culture - Final Culture exhibits no growth. Laboratory Results 03/04/20 10:18: POC Glucose 94 Current Medications Acetaminophen (Tylenol) 650 mg PO Q6H PRN PRN PRN Reason: Pain Score 1-10/Temp > 100.7 F Last Admin: 03/04/20 17:50 Dose: 650 mg Documented by: Carbidopa/Levodopa (Sinemet) 1 tablet PO TIDAC LEENA Last Admin: 03/05/20 04:58 Dose: 1 tablet Documented by: Cholecalciferol (Vitamin D (25mcg)) 5,000 unit PO DAILY [facility] Last Admin: 03/04/20 10:31 Dose: 5,000 unit Documented by: Donepezil HCl (Aricept) 10 mg PO QHS [facility] Last Admin: 03/04/20 21:29 Dose: 10 mg Documented by: Enoxaparin Sodium (Lovenox) 40 mg SC DAILY [facility] Last Admin: 03/04/20 10:31 Dose: 40 mg Documented by: Fluoxetine HCl (Prozac) 40 mg PO BID [facility] Last Admin: 03/04/20 21:28 Dose: 40 mg Documented by: Lactated Ringer's () 1,000 mls @ 100 mls/hr IV .Q10H [facility] Last Admin: 03/05/20 04:58 Dose: 100 mls/hr Documented by: Pantoprazole Sodium 40 mg/ (Sodium Chloride) 110 mls @ 330 mls/hr IV Q24 [facility] Last Infusion: 03/04/20 10:55 Dose: Infused Documented by: Sodium Chloride () 250 mls @ 15 mls/hr IV .[id number] PRN PRN Reason: Saline Flush Lisinopril (Zestril) 10 mg PO DAILY [facility] Last Admin: 03/04/20 07:55 Dose: 10 mg Documented by: Melatonin (Melatonin) 3 mg PO QHS PRN PRN PRN Reason: INSOMNIA Mirabegron (Myrbetriq) 25 mg PO DAILY [facility] Last Admin: 03/04/20 11:43 Dose: 25 mg Documented by: Nutritional Formula (Lactose Free) (Ensure Clear) 120 ml PO 4X/DAY [facility] Last Admin: 03/04/20 21:28 Dose: 120 ml Documented by: Ondansetron HCl (Zofran) 4 mg IV Q8H PRN PRN PRN Reason: NAUSEA/VOMITING Last Admin: 03/05/20 07:22 Dose: 4 mg Documented by: Pantoprazole Sodium (Protonix) 40 mg PO DAILY [facility] Last Admin: 03/04/20 21:27 Dose: 40 mg Documented by: Polyethylene Glycol (Miralax) 17 gm PO DAILY [facility] Sodium Chloride () 10 - 40 ml IV UD PRN PRN Reason: SALINE FLUSH Last Admin: 03/04/20 13:47 Dose: 10 ml Documented by: STROKE Vital Signs/Narrative: Vital Signs Temp Pulse Resp BP Pulse Ox 03/05/20 08:30 36.6 C 59 L 16 133/80 H 98 03/05/20 07:05 98 Medical Necessity - Tobacco Use Smoking Status: Never smoker Assessment/Plan All Active Problems (Last Reviewed 03/03/20 @ 05:[address] Duran Mcginnis MD) Nausea and vomiting (Acute) Dehydration (Acute) Gastritis (Acute) Chest pain (Resolved) Hypokalemia (Resolved) 1. nausea and vomiting: * ongoing despite resolution of constipation * dw dtr, symptoms may have begun before Sinemet was started, but not clear * will discontinue Sinemet and observe. If persists, concider stopping donepezil * gastric emptying study 2. constipation: * resolved with Dulcolax * daily miralax. 3. debility: PT OT. additional therapy recommended Dtrs open to TCU 4. Essential tremor: * diagnsosis per history. I doubt this is an accurate diagnosis given myriad of other symptoms. * She was on propranolol, but was stopped due hypotension and bradycardia and changed to Sinemet by her PCP this week. * I am concerned pt has another diagnosis entirely: such as MSA or parkinson's. Clincally, I doubt PSP given lack of surprised appearance and no hummingbird sign noted on MRI from March 2019 * I recommended to her daughters that the patient follow up with a movement d/o specialist 5. VTE prophylaxis. LMWH Greater than 30% of time was discussing with the patient's daughter in the room but also another daughter over the phone and asking questions about the patient's case and further history. When the daughter is that the patient lives with, stated the patient had a significant fall back in July and one more recently. The fall in July patient did hit her head and there was concern for postconcussion syndrome which apparently had gone on for about 3 months. Daughter states that the fall in July patient fell forward and the other 1 she fell backwards after standing up quickly. Inpatient E&M: [id number] [facility] Hosp L3
[2020-03-05] MEDS: Polyethylene Glycol 3350 17 GM PACKET PO (11:35)
[2020-03-05] MEDS: Lisinopril 10 MG Tablet PO (11:36)
[2020-03-05] MEDS: FLUoxetine 20 MG Capsule 40 MG PO (11:36)
[2020-03-05] MEDS: Pantoprazole Sodium 40 MG Tablet PO (11:36)
[2020-03-05] MEDS: Ensure Clear 120 ML Liquid PO ×3 (11:37→21:27)
[2020-03-05] MEDS: Enoxaparin 40 MG/0.4 ML Syringe SC (11:37)
[2020-03-05] MEDS: Mirabegron 25 MG TAB.ER.24H PO (11:37)
--- NOTE | 2020-03-05 11:56 | CHAPLAIN ---
Type of Pastoral Visit _x__ Initial Visit ___ Follow-up Visit ___ On-call Visit ___ General Patient Visit ___ Spiritual Assessment ___ Family Conference ___ Bereavement ___ Rapid Response ___ Code Blue ___ Other (describe below) Pastoral Care Referral From _x__ Patient ___ Family ___ Nurse ___ Physician ___ Employee Communications Specialist ___ Closet Organizer ___ Other (describe below) Sacrament/Intervention _x__ Active listening ___ Anointing ___ Evangelical ___ Bereavement ___ Communion ___ Carlita exploration ___ _x__ Life review _x__ Prayer ___ Reconciliation ___ Sacrament of Sick _x__ Supportive presence ___ Wedding ___ Other (describe below) Pastoral Comments patient spoke very quietly but very actively about her experience and life review; pt has family for support; pt has connection to local latter-day; pt admits to 'seeing people' in the room occasionally; pt seeks spiritual care support and prayer; time of presence and listening by this paramedic
--- NOTE | 2020-03-05 13:14 | NURSING ---
Spoke with Miladis in pharmacy regarding interaction with Reglan and Prozac when placing the order. Dr. Singh was made aware as well and wanted the Reglan ordered and the Prozac dc'd. I made Miladis aware that the patient already had her Prozac today and asked if we needed to wait to give her Reglan. Miladis states that it is ok to start the Reglan now. The patient will not be getting more than 30mg/day so it should be ok. We will just need to monitor for extrapyramidal side effects.
[2020-03-05] MEDS: Metoclopramide 10 MG/2 ML Vial 5 MG IV ×3 (14:36→23:46)
--- NOTE | 2020-03-05 15:44 | CASEMGMT ---
Social Work Note FERNANDO updated by JUAN LUONG that she spoke with pt's daughter Aminata and plan for discharge is home vs TCU. FERNANDO placed a call to Ya in TCU. TCU will have a bed on Sunday for pt. COVID test will need to be ordered, FERNANDO updated charge nurse. SW in to speak with pt. SW introduced self and role at [facility]. Pt is alert and orientated but states my daughter will be here soon in regards to discussion of discharge plans. FERNANDO informed pt that JUAN LUONG spoke with Aminata and Aminata wanted pt placed on TCU list in the event that pt and Aminata want SNF for pt. Pt states understanding, agreeable to being on TCU list. FERNANDO updated pt that JUAN LUONG or FERNANDO will be in tomorrow to speak with pt and Aminata to confirm discharge plans. Pt states understanding. JUAN LUONG or FERNANDO To follow up tomorrow. Pt is on TCU list in the event TCU is needed. TCU will have a bed for pt on Sunday. Green sheet on chart for TCU. Plan: Home Vs TCU Noemy Lal REGISTERED DENTAL ASSISTANT, FITTER HELPER
[2020-03-05] MEDS: Donepezil HCl 10 MG Tablet PO (21:27)
[2020-03-05] MEDS: MELATONIN 3 MG TABLET PO (21:27)
[2020-03-05] MEDS: Acetaminophen 325 MG Tablet 650 MG PO (21:41)
[2020-03-05] MEDS: 0.9% Saline Lock 10 ML Syringe IV (23:46)
[2020-03-06 04:44] VITALS: BP 154/87; PULSE 63; RESP 18; TEMP 36.4; O2SAT 98
[2020-03-06] MEDS: 0.9% Saline Lock 10 ML Syringe IV ×2 (06:09→12:19)
[2020-03-06] MEDS: Metoclopramide 10 MG/2 ML Vial 5 MG IV ×3 (06:10→17:48)
[2020-03-06 06:55] LABS: Anion Gap 8 (5-15); BUN 4 mg/dL (7-18); BUN/Creat Ratio 7.5 RATIO (10-20); Calcium,Total 8.5 mg/dL (8.5-10.1); Chloride 104 mmol/L (98-107); Creatinine, Serum 0.53 mg/dL (0.55-1.02); EST Glomerular Filtration Rate 117 mL/min (>60); Est Glom Filt Rate - Afr Amer 142 mL/min (>60); Estimated Creatinine Clearance 32.02 ml/min; Glucose 99 mg/dL (74-106); Potassium 2.3 mmol/L (3.5-5.1); Sodium Level 143 mmol/L (136-145)
--- NOTE | 2020-03-06 08:16 | CASEMGMT ---
LW/POA forms both in summary tab of [facility], daughter Aminata Haney is listed as medical POA and daughter Ольга Fisher is listed as alternate. TANESHA Ramires
[2020-03-06] MEDS: Potassium Chloride 10mEq/100mL 10 MEQ/100 ML IV.SOLN. 100 MEQ IV BOLUS ×4 (08:49→14:32)
[2020-03-06] MEDS: Polyethylene Glycol 3350 17 GM PACKET PO (08:53)
[2020-03-06] MEDS: Enoxaparin 40 MG/0.4 ML Syringe SC (08:53)
[2020-03-06] MEDS: Mirabegron 25 MG TAB.ER.24H PO (08:54)
[2020-03-06] MEDS: Pantoprazole Sodium 40 MG Tablet PO (08:54)
[2020-03-06] MEDS: Lisinopril 10 MG Tablet PO (08:55)
[2020-03-06] MEDS: Lactated Ringers 1,000 ML 100 ML IV ×2 (08:58→19:04)
[2020-03-06 09:12] VITALS: BP 136/72; PULSE 69; RESP 18; TEMP 36.7; O2SAT 100
[2020-03-06 09:21] LABS: Magnesium 1.2 mg/dL (1.6-2.6)
--- NOTE | 2020-03-06 09:22 | CASEMGMT ---
Addendum entered by Dorie Preciado 03/06/20 13:07: SW spoke to physician, pt will be here until Sunday and let the pt and daughter know. Green sheet is on the chart for home with home health in the event something would change and pt is discharged tomorrow. TANESHA Ramires Addendum entered by Dorie Preciado 03/06/20 10:32: FERNANDO spoke w/engagement quality consultant RN for [facility], referral faxed to the office. TANESHA Ramires Addendum entered by Dorie Preciado 03/06/20 10:13: SW spoke w/daughter, they have decided to take pt home, and they do have 24 hour care for pt. SW reviewed w/daughter how pt is doing in PT, daughter states they can care for pt, she wants home health through [facility], as pt's is active with them at present. SW explained can make referral or case management can make referral. Daughter also asked about discharge, SW explained will let her know what physician says. SW will continue to follow. FERNANDO paged [facility] and will place order. TANESHA Ramires Original Note: FERNANDO called daughter to clarify if plan is indeed for pt to go to TCU at discharge. Message left to return call to this FERNANDO. TANESHA Rmaires
[2020-03-06 11:07] VITALS: O2SAT 99
--- NOTE | 2020-03-06 11:39 | PCM.PN.HOSP ---
Patient Problems: Active and Suspected Problems (Last Reviewed 03/03/20 @ 05:[address] Duran Mcginnis MD) Nausea and vomiting (Acute) Dehydration (Acute) Gastritis (Acute) Reason for Visit: nausea and vomiting Subjective: Less tremulous today. N/V improved Vitals/I&O's: Vital Signs Temp Pulse Resp BP Pulse Ox 36.7 C 69 18 136/72 H 99 03/06/20 09:12 03/06/20 09:12 03/06/20 09:12 03/06/20 09:12 03/06/20 11:07 Oxygen Flow Rate (L/min) 2 Oxygen Delivery Method Nasal Cannula Weight: 45.2 kg Body Mass Index (BMI) 19.4 Intake and Output for Last 24 Hours 03/04/20 03/05/20 03/06/20 23:59 23:59 23:59 Intake Total 1528.34 / 1728.34 4030.00 / 4030.00 1340 / 1340 Output Total 400 / 650 1650 / 1650 600 / 600 Balance 1128.34 / 1078.34 2380.00 / 2380.00 740 / 740 General: Alert, No apparent distress HEENT: Atraumatic, Normocephalic Oral: Moist Mucosa, No Gingival or Mucosal Lesions/ Ulcerations Neck: No Nodes, Thyroid Normal Size and Texture Lungs: Clear to auscultation, Normal air movement, No rhonchi, No wheeze Cardiovascular: Regular rate, Regular Rhythm, Normal S1, Normal S2, No murmurs Abdomen: Bowel Sounds Present, Soft, Non Tender, Non-Distended, No Hepato-splenomegaly Extremities: No edema, No Calf Tenderness Skin: No rashes Musculoskeletal: Cachexia, Muscle Wasting Neurological: - - minimal tremulousness Psych/Mental Status: Normal Affect, Appropriate Microbiology Past 72 Hours 03/02/20 23:25 Urine Catheter - Catheter Urine Culture - Final Culture exhibits no growth. Laboratory Results 03/05/20 16:25: COVID-19 ([facility]) Not Detected 03/06/20 06:23: Sodium 143, Potassium 2.3 L*, Chloride 104, Carbon Dioxide 31.0, Anion Gap 8, BUN 4 L, Creatinine 0.53 L, Estim Creat Clear Calc 32.02, Est GFR (MDRD) Af Amer 142, Est GFR (MDRD) Non-Af 117, BUN/Creatinine Ratio 7.5 L, Glucose 99, Calcium 8.5 03/06/20 06:23: Magnesium 1.2 L Current Medications Acetaminophen (Tylenol) 650 mg PO Q6H PRN PRN PRN Reason: Pain Score 1-10/Temp > 100.7 F Last Admin: 03/05/20 21:41 Dose: 650 mg Documented by: Cholecalciferol (Vitamin D (25mcg)) 5,000 unit PO DAILY [facility] Last Admin: 03/06/20 08:53 Dose: 5,000 unit Documented by: Donepezil HCl (Aricept) 10 mg PO QHS [facility] Last Admin: 03/05/20 21:27 Dose: 10 mg Documented by: Enoxaparin Sodium (Lovenox) 40 mg SC DAILY [facility] Last Admin: 03/06/20 08:53 Dose: 40 mg Documented by: Lactated Ringer's () 1,000 mls @ 100 mls/hr IV .Q10H [facility] Last Admin: 03/06/20 08:58 Dose: 100 mls/hr Documented by: Pantoprazole Sodium 40 mg/ (Sodium Chloride) 110 mls @ 330 mls/hr IV Q24 [facility] Last Admin: 03/06/20 08:59 Dose: 330 mls/hr Documented by: Sodium Chloride () 250 mls @ 15 mls/hr IV .[id number] PRN PRN Reason: Saline Flush Potassium Chloride () 10 meq in 100 mls @ 100 mls/hr IV BOLUS Q1H LEENA Stop: 03/06/20 11:59 Last Admin: 03/06/20 10:14 Dose: 100 mls/hr Documented by: Magnesium Sulfate () 4 gm in 100 mls @ 25 mls/hr IV X1 ONE Stop: 03/06/20 15:30 Lisinopril (Zestril) 10 mg PO DAILY [facility] Last Admin: 03/06/20 08:55 Dose: 10 mg Documented by: Melatonin (Melatonin) 3 mg PO QHS PRN PRN PRN Reason: INSOMNIA Last Admin: 03/05/20 21:27 Dose: 3 mg Documented by: Metoclopramide HCl (Reglan) 5 mg IV Q6 [facility] Last Admin: 03/06/20 06:10 Dose: 5 mg Documented by: Mirabegron (Myrbetriq) 25 mg PO DAILY [facility] Last Admin: 03/06/20 08:54 Dose: 25 mg Documented by: Nutritional Formula (Lactose Free) (Ensure Clear) 120 ml PO 4X/DAY [facility] Last Admin: 03/06/20 09:07 Dose: Not Given Documented by: Ondansetron HCl (Zofran) 4 mg IV Q8H PRN PRN PRN Reason: NAUSEA/VOMITING Last Admin: 03/05/20 07:22 Dose: 4 mg Documented by: Pantoprazole Sodium (Protonix) 40 mg PO DAILY [facility] Last Admin: 03/06/20 08:54 Dose: 40 mg Documented by: Polyethylene Glycol (Miralax) 17 gm PO DAILY [facility] Last Admin: 03/06/20 08:53 Dose: 17 gm Documented by: Sodium Chloride () 10 - 40 ml IV UD PRN PRN Reason: SALINE FLUSH Last Admin: 03/06/20 06:09 Dose: 10 ml Documented by: STROKE Vital Signs/Narrative: Vital Signs Temp Pulse Resp BP Pulse Ox 03/06/20 11:07 99 03/06/20 09:12 36.7 C 69 18 136/72 H 100 Medical Necessity - Tobacco Use Smoking Status: Never smoker Assessment/Plan All Active Problems (Last Reviewed 03/03/20 @ 05:[address] Duran Mcginnis MD) Nausea and vomiting (Acute) Dehydration (Acute) Gastritis (Acute) Chest pain (Resolved) Hypokalemia (Resolved) 1. nausea and vomiting: subjectively improved dw dtr, symptoms may have begun before Sinemet was started, but not clear. Sinemet dc'd 03/05. If recurs, consider stopping donepezil gastric emptying study 03/08, stop Reglan and ondansetron 03/07 I am concerned that this may worse when she is anxious (as is her tremor) 2. constipation: resolved with Dulcolax daily miralax. 3. debility: PT OT. additional therapy recommended Plan for patient is to go home upon discharge 4. Essential tremor: diagnsosis per history. I doubt this is an accurate diagnosis given myriad of other symptoms. She was on propranolol, but was stopped due hypotension and bradycardia and changed to Sinemet by her PCP this week. I am concerned pt has another diagnosis entirely: such as MSA or parkinson's. Clincally, I doubt PSP given lack of surprised appearance and no hummingbird sign noted on MRI from March 2019 I recommended to her daughters that the patient follow up with a movement d/o specialist 5. VTE prophylaxis. LMWH ELKE Coates about N/V and plans and reiterated recommendation for follow up with a movement disorder specialist. Greater than 35 minutes, of which greater than 50% of the time was discussing with pt's Dtr about patient's current state, GES, and tremor. Inpatient E&M: 11663 Subs Hosp L3
[2020-03-06] MEDS: Magnesium Sulfate 4gm/100mL 4 GM/100 ML IV.SOLN. IV (12:20)
[2020-03-06 15:38] VITALS: BP 132/68; PULSE 64; RESP 18; TEMP 36.7
[2020-03-06] MEDS: Ensure Clear 120 ML Liquid PO ×2 (17:48→20:56)
[2020-03-06 20:15] VITALS: BP 136/70; PULSE 72; RESP 18; TEMP 36.7; O2SAT 96
[2020-03-06] MEDS: Donepezil HCl 10 MG Tablet PO (20:56)
[2020-03-06] MEDS: MELATONIN 3 MG TABLET PO (20:56)
[2020-03-06] MEDS: Acetaminophen 325 MG Tablet 650 MG PO (20:56)
[2020-03-07] MEDS: Metoclopramide 10 MG/2 ML Vial 5 MG IV ×2 (00:07→05:15)
[2020-03-07 02:15] VITALS: BP 130/64; PULSE 66; RESP 16; TEMP 36.7; O2SAT 96
[2020-03-07 04:59] LABS: Anion Gap 4 (5-15); BUN 4 mg/dL (7-18); BUN/Creat Ratio 8.3 RATIO (10-20); Calcium,Total 8.1 mg/dL (8.5-10.1); Chloride 107 mmol/L (98-107); Creatinine, Serum 0.48 mg/dL (0.55-1.02); EST Glomerular Filtration Rate 132 mL/min (>60); Est Glom Filt Rate - Afr Amer 159 mL/min (>60); Estimated Creatinine Clearance 32.02 ml/min; Glucose 91 mg/dL (74-106); Magnesium 1.9 mg/dL (1.6-2.6); Sodium Level 144 mmol/L (136-145)
[2020-03-07] MEDS: Lactated Ringers 1,000 ML 100 ML IV ×3 (05:15→23:48)
[2020-03-07] MEDS: Potassium Chloride 10mEq/100mL 10 MEQ/100 ML IV.SOLN. 100 MEQ IV BOLUS ×4 (05:53→09:50)
[2020-03-07 08:16] VITALS: BP 125/76; PULSE 66; RESP 16; TEMP 36.3; O2SAT 93
[2020-03-07] MEDS: Acetaminophen 325 MG Tablet 650 MG PO ×2 (08:49→20:25)
[2020-03-07] MEDS: Enoxaparin 40 MG/0.4 ML Syringe SC (08:53)
[2020-03-07] MEDS: Lisinopril 10 MG Tablet PO (08:54)
[2020-03-07] MEDS: Mirabegron 25 MG TAB.ER.24H PO (08:54)
[2020-03-07] MEDS: Pantoprazole Sodium 40 MG Tablet PO (08:54)
--- NOTE | 2020-03-07 11:20 | PCM.PN.HOSP ---
Patient Problems: Active and Suspected Problems (Last Reviewed 03/03/20 @ 05:[address] Duran Mcginnis MD) Nausea and vomiting (Acute) Dehydration (Acute) Gastritis (Acute) Reason for Visit: N/V Subjective: Feels better. Vitals/I&O's: Vital Signs Temp Pulse Resp BP Pulse Ox 36.3 C L 66 16 125/76 H 93 03/07/20 08:16 03/07/20 08:16 03/07/20 08:16 03/07/20 08:16 03/07/20 08:16 Oxygen Flow Rate (L/min) 2 Oxygen Delivery Method Room Air Weight: 45.2 kg Body Mass Index (BMI) 19.4 Intake and Output for Last 24 Hours 03/05/20 03/06/20 03/07/20 23:59 23:59 23:59 Intake Total 4030.00 / 4030.00 3450 / 3450 2091.67 / 2091.67 Output Total 1650 / 1650 1300 / 2000 1400 / 1400 Balance 2380.00 / 2380.00 2150 / 1450 691.67 / 691.67 General: Alert, No apparent distress HEENT: Atraumatic, Normocephalic Oral: Moist Mucosa, No Gingival or Mucosal Lesions/ Ulcerations Neck: No Nodes, Thyroid Normal Size and Texture Lungs: Clear to auscultation, Normal air movement, No rhonchi, No wheeze, No rales Cardiovascular: Regular rate, Regular Rhythm, Normal S1, Normal S2, No murmurs Abdomen: Bowel Sounds Present, Soft, Non Tender, Non-Distended, No Hepato-splenomegaly, Passing Flatus, Bowel Sounds Not Present Extremities: No edema, No Calf Tenderness Skin: No rashes, No breakdown Psych/Mental Status: Normal Affect, Appropriate Microbiology Past 72 Hours 03/02/20 23:25 Urine Catheter - Catheter Urine Culture - Final Culture exhibits no growth. Laboratory Results 03/07/20 04:35: Sodium 144, Potassium 3.0 L, Chloride 107, Carbon Dioxide 33.0 H, Anion Gap 4 L, BUN 4 L, Creatinine 0.48 L, Estim Creat Clear Calc 32.02, Est GFR (MDRD) Af Amer 159, Est GFR (MDRD) Non-Af 132, BUN/Creatinine Ratio 8.3 L, Glucose 91, Calcium 8.1 L, Magnesium 1.9 Current Medications Acetaminophen (Tylenol) 650 mg PO Q6H PRN PRN PRN Reason: Pain Score 1-10/Temp > 100.7 F Last Admin: 03/07/20 08:49 Dose: 650 mg Documented by: Cholecalciferol (Vitamin D (25mcg)) 5,000 unit PO DAILY [facility] Last Admin: 03/07/20 08:54 Dose: 5,000 unit Documented by: Donepezil HCl (Aricept) 10 mg PO QHS [facility] Last Admin: 03/06/20 20:56 Dose: 10 mg Documented by: Enoxaparin Sodium (Lovenox) 40 mg SC DAILY [facility] Last Admin: 03/07/20 08:53 Dose: 40 mg Documented by: Lactated Ringer's () 1,000 mls @ 100 mls/hr IV .Q10H [facility] Last Infusion: 03/07/20 11:09 Dose: 100 mls/hr Documented by: Pantoprazole Sodium 40 mg/ (Sodium Chloride) 110 mls @ 330 mls/hr IV Q24 [facility]EE[facility] Last Infusion: 03/07/20 11:09 Dose: Infused Documented by: Sodium Chloride () 250 mls @ 15 mls/hr IV .[id number] PRN PRN Reason: Saline Flush Lisinopril (Zestril) 10 mg PO DAILY [facility] Last Admin: 03/07/20 08:54 Dose: 10 mg Documented by: Melatonin (Melatonin) 3 mg PO QHS PRN PRN PRN Reason: INSOMNIA Last Admin: 03/06/20 20:56 Dose: 3 mg Documented by: Mirabegron (Myrbetriq) 25 mg PO DAILY [facility] Last Admin: 03/07/20 08:54 Dose: 25 mg Documented by: Nutritional Formula (Lactose Free) (Ensure Clear) 120 ml PO 4X/DAY [facility] Last Admin: 03/07/20 10:13 Dose: Not Given Documented by: Pantoprazole Sodium (Protonix) 40 mg PO DAILY [facility] Last Admin: 03/07/20 08:54 Dose: 40 mg Documented by: Polyethylene Glycol (Miralax) 17 gm PO DAILY [facility] Last Admin: 03/07/20 08:53 Dose: Not Given Documented by: Sodium Chloride () 10 - 40 ml IV UD PRN PRN Reason: SALINE FLUSH Last Admin: 03/06/20 12:19 Dose: 20 ml Documented by: STROKE Vital Signs/Narrative: Vital Signs Temp Pulse Resp BP Pulse Ox 03/07/20 08:16 36.3 C L 66 16 125/76 H 93 Medical Necessity - Tobacco Use Smoking Status: Never smoker Assessment/Plan All Active Problems (Last Reviewed 03/03/20 @ 05:[address] Duran Mcginnis MD) Nausea and vomiting (Acute) Dehydration (Acute) Gastritis (Acute) Chest pain (Resolved) Hypokalemia (Resolved) 1. nausea and vomiting: subjectively improved dw dtr, symptoms may have begun before Sinemet was started, but not clear. Sinemet dc'd 03/05. If recurs, consider stopping donepezil gastric emptying study 03/08, stop Reglan and ondansetron 03/07 I am concerned that this may worse when she is anxious (as is her tremor) 2. constipation: resolved with Dulcolax daily miralax. 3. debility: PT OT. additional therapy recommended Plan for patient is to go home upon discharge 4. Essential tremor: diagnsosis per history. I doubt this is an accurate diagnosis given myriad of other symptoms. She was on propranolol, but was stopped due hypotension and bradycardia and changed to Sinemet by her PCP this week. I am concerned pt has another diagnosis entirely: such as MSA or parkinson's. Clincally, I doubt PSP given lack of surprised appearance and no hummingbird sign noted on MRI from March 2019 I recommended to her daughters that the patient follow up with a movement d/o specialist 5. VTE prophylaxis. LMWH ELKE Coates and Ольга about N/V and plans and reiterated recommendation for follow up with a movement disorder specialist. Discussed that I won't order an MRI of her brain at this time, since she had one in March. Greater than 35 minutes, of which greater than 50% of the time was discussing with pt's Dtr about patient's current state, GES, and tremor. Inpatient E&M: 41274 Subs Hosp L3
[2020-03-07 12:30] LABS: Potassium 4.5 mmol/L (3.5-5.1)
[2020-03-07] MEDS: Ensure Clear 120 ML Liquid PO ×3 (13:59→20:26)
[2020-03-07 14:04] VITALS: BP 148/94; PULSE 76; RESP 16; TEMP 36.9; O2SAT 94
[2020-03-07 20:13] VITALS: BP 155/86; PULSE 73; RESP 20; TEMP 36.2; O2SAT 97
[2020-03-07 20:14] VITALS: RESP 18
[2020-03-07] MEDS: MELATONIN 3 MG TABLET PO (20:26)
[2020-03-07] MEDS: Donepezil HCl 10 MG Tablet PO (20:26)
[2020-03-07 23:41] VITALS: BP 160/93; PULSE 65; RESP 20; TEMP 36.9; O2SAT 100
[2020-03-08 03:25] VITALS: BP 162/84; PULSE 100; RESP 18; TEMP 36.6; O2SAT 100
[2020-03-08 06:58] LABS: Anion Gap 4 (5-15); BUN 6 mg/dL (7-18); BUN/Creat Ratio 10.7 RATIO (10-20); Calcium,Total 8.7 mg/dL (8.5-10.1); Chloride 106 mmol/L (98-107); Creatinine, Serum 0.56 mg/dL (0.55-1.02); EST Glomerular Filtration Rate 111 mL/min (>60); Est Glom Filt Rate - Afr Amer 134 mL/min (>60); Estimated Creatinine Clearance 32.02 ml/min; Glucose 94 mg/dL (74-106); Potassium 3.5 mmol/L (3.5-5.1); Sodium Level 139 mmol/L (136-145)
[2020-03-08 07:21] VITALS: O2SAT 98
[2020-03-08] MEDS: Lactated Ringers 1,000 ML 100 ML IV ×2 (09:48→23:00)
[2020-03-08 09:51] VITALS: BP 138/66; PULSE 76; RESP 18; TEMP 36.7; O2SAT 98
--- NOTE | 2020-03-08 11:30 | NM_ITS ---
CLINICAL: 80-year-old female with history of abdominal pain and nausea. SEMI-SOLID PHASE 99m Tc SULFUR COLLOID GASTRIC EMPTYING STUDY COMPARISON: CT of the abdomen-pelvis report 03/02/2020 FINDINGS: The patient was administered 1.1 mCi of 99m Tc sulfur colloid mixed with oatmeal and consumed per os. Image acquisitions in the anterior anterior-posterior projections for a total of 60 minutes. There is prompt visualization of the stomach. There is no gastroesophageal reflux identified. The T ? linear fit was calculated to be 50.77 minutes, (Normal: 12-56 minutes). NM/Gastric Emptying Study IMPRESSION: 1. NORMAL 99m Tc sulfur colloid semi-solid phase (oatmeal) gastric emptying imaging examination. A. There is upper limits of normal and preserved semi-solid phase gastric emptying compared to normal controls with maintained first order kinetics throughout all components of the examination. (Snoi et al, J Nucl Med Tech 38: 186, 2010). Electronically Signed: Fredy Davis DO at 13:37 EDT Tel , Service support ,
--- NOTE | 2020-03-08 11:45 | PCM.PN.HOSP ---
Patient Problems: Active and Suspected Problems (Last Reviewed 03/03/20 @ 05:[address] Duran Mcginnis MD) Nausea and vomiting (Acute) Dehydration (Acute) Gastritis (Acute) Reason for Visit: N/V Subjective: Tremulous. Notes over the past month or possibly more, has been hallucinating. She describes her hallucinations as seeing her great granddaughter in a doorway at times, not currently. Vitals/I&O's: Vital Signs Temp Pulse Resp BP Pulse Ox 36.7 C 76 18 138/66 H 98 03/08/20 09:51 03/08/20 09:51 03/08/20 09:51 03/08/20 09:51 03/08/20 09:51 Oxygen Flow Rate (L/min) 2 Oxygen Delivery Method Nasal Cannula Weight: 45.2 kg Body Mass Index (BMI) 19.4 Intake and Output for Last 24 Hours 03/06/20 03/07/20 03/08/20 23:59 23:59 23:59 Intake Total 3450 / 3450 5095.00 / 5095.00 1000 / 1000 Output Total 1300 / 2000 2550 / 2550 325 / 325 Balance 2150 / 1450 2545.00 / 2545.00 675 / 675 General: Alert, No apparent distress HEENT: Atraumatic, Normocephalic Oral: Moist Mucosa, No Gingival or Mucosal Lesions/ Ulcerations Neck: No Nodes, Thyroid Normal Size and Texture Lungs: Clear to auscultation, Normal air movement, No rhonchi, No wheeze Cardiovascular: Regular rate, Regular Rhythm, Normal S1, Normal S2 Abdomen: Bowel Sounds Present, Soft, Non Tender, Non-Distended, No Hepato-splenomegaly Extremities: No edema, No Calf Tenderness Microbiology Past 72 Hours 03/02/20 23:25 Urine Catheter - Catheter Urine Culture - Final Culture exhibits no growth. Laboratory Results 03/07/20 11:53: Potassium 4.5 03/08/20 06:12: Sodium 139, Potassium 3.5, Chloride 106, Carbon Dioxide 29.0, Anion Gap 4 L, BUN 6 L, Creatinine 0.56, Estim Creat Clear Calc 32.02, Est GFR (MDRD) Af Amer 134, Est GFR (MDRD) Non-Af 111, BUN/Creatinine Ratio 10.7, Glucose 94, Calcium 8.7 Current Medications Acetaminophen (Tylenol) 650 mg PO Q6H PRN PRN PRN Reason: Pain Score 1-10/Temp > 100.7 F Last Admin: 03/07/20 20:25 Dose: 650 mg Documented by: Cholecalciferol (Vitamin D (25mcg)) 5,000 unit PO DAILY [facility] Last Admin: 03/07/20 08:54 Dose: 5,000 unit Documented by: Donepezil HCl (Aricept) 10 mg PO QHS [facility] Last Admin: 03/07/20 20:26 Dose: 10 mg Documented by: Enoxaparin Sodium (Lovenox) 40 mg SC DAILY [facility] Last Admin: 03/07/20 08:53 Dose: 40 mg Documented by: Lactated Ringer's () 1,000 mls @ 100 mls/hr IV .Q10H [facility] Last Admin: 03/08/20 09:48 Dose: 100 mls/hr Documented by: Pantoprazole Sodium 40 mg/ (Sodium Chloride) 110 mls @ 330 mls/hr IV Q24 [facility] Last Infusion: 03/07/20 11:09 Dose: Infused Documented by: Sodium Chloride () 250 mls @ 15 mls/hr IV .[id number] PRN PRN Reason: Saline Flush Lisinopril (Zestril) 10 mg PO DAILY [facility] Last Admin: 03/07/20 08:54 Dose: 10 mg Documented by: Melatonin (Melatonin) 3 mg PO QHS PRN PRN PRN Reason: INSOMNIA Last Admin: 03/07/20 20:26 Dose: 3 mg Documented by: Mirabegron (Myrbetriq) 25 mg PO DAILY [facility] Last Admin: 03/07/20 08:54 Dose: 25 mg Documented by: Nutritional Formula (Lactose Free) (Ensure Clear) 120 ml PO 4X/DAY [facility] Last Admin: 03/08/20 09:50 Dose: Not Given Documented by: Pantoprazole Sodium (Protonix) 40 mg PO DAILY [facility] Last Admin: 03/07/20 08:54 Dose: 40 mg Documented by: Polyethylene Glycol (Miralax) 17 gm PO DAILY [facility] Last Admin: 03/08/20 07:14 Dose: Not Given Documented by: Sodium Chloride () 10 - 40 ml IV UD PRN PRN Reason: SALINE FLUSH Last Admin: 03/06/20 12:19 Dose: 20 ml Documented by: STROKE Vital Signs/Narrative: Vital Signs Temp Pulse Resp BP Pulse Ox 03/08/20 09:51 36.7 C 76 18 138/66 H 98 Medical Necessity - Tobacco Use Smoking Status: Never smoker Assessment/Plan All Active Problems (Last Reviewed 03/03/20 @ 05:[address] Duran Mcginnis MD) Nausea and vomiting (Acute) Dehydration (Acute) Gastritis (Acute) Chest pain (Resolved) Hypokalemia (Resolved) 1. nausea and vomiting: subjectively improved dw dtr, symptoms may have begun before Sinemet was started, but not clear. Sinemet dc'd 03/05. If recurs, consider stopping donepezil gastric emptying study 03/08, stop Reglan and ondansetron 03/07 I am concerned that this may worse when she is anxious (as is her tremor) 2. constipation: resolved with Dulcolax daily miralax. 3. debility: PT OT. additional therapy recommended Plan for patient is to go home upon discharge 4. Essential tremor: diagnsosis per history. I doubt this is an accurate diagnosis given myriad of other symptoms. She was on propranolol, but was stopped due hypotension and bradycardia and changed to Sinemet by her PCP this week. I am concerned pt has another diagnosis entirely: such as MSA or parkinson's. Clincally, I doubt PSP given lack of surprised appearance and no hummingbird sign noted on MRI from March 2019 I recommended to her daughters that the patient follow up with a movement d/o specialist 5. VTE prophylaxis. LMWH 6. Hallucinations: chronic. consider geriatric evaluation as outpt. Inpatient E&M: 56444 Subs Hosp L2
[2020-03-08] MEDS: Lisinopril 10 MG Tablet PO (13:12)
[2020-03-08] MEDS: Pantoprazole Sodium 40 MG Tablet PO (13:12)
[2020-03-08] MEDS: Enoxaparin 40 MG/0.4 ML Syringe SC (13:12)
[2020-03-08] MEDS: Mirabegron 25 MG TAB.ER.24H PO (13:18)
[2020-03-08 15:23] VITALS: BP 169/94; PULSE 74; RESP 18; TEMP 36.7; O2SAT 98
--- NOTE | 2020-03-08 15:49 | NURSING ---
took phone in to patient so may speak with Dr. Singh as she requested and he called.
[2020-03-08] MEDS: Ensure Clear 120 ML Liquid PO ×2 (17:13→20:31)
[2020-03-08 17:25] LABS: Bacteria 0 SEEN /hpf (None Seen); Color, Urine Yellow (Yellow); Glucose, Dipstick Normal (Normal); Ketone-Dipstick Negative (Negative); Leukocyte Esterase-Dipstick Negative /ul (Negative); Mucous, Urine 0 SEEN /hpf (<or=2+); Nitrite-Dipstick Negative (Negative); Occult Blood-Urine 10 /ul (Negative); Protein-Dipstick Negative (Negative); Red Blood Cells-Urine 0 SEEN /hpf (0-5); Squamous Epithelial Cells - UA 0 SEEN /hpf (5-10); Urine Bilirubin Dipstick Negative (Negative); Urine Clarity Clear (Clear); Urine Urobilinogen Normal (Normal); White Blood Cells 0 SEEN /hpf (0-5)
[2020-03-08 20:20] VITALS: BP 151/78; PULSE 74; RESP 18; TEMP 37.3; O2SAT 92
[2020-03-08] MEDS: Acetaminophen 325 MG Tablet 650 MG PO (20:29)
[2020-03-08] MEDS: FLUoxetine 20 MG Capsule 40 MG PO (20:30)
[2020-03-08] MEDS: MELATONIN 3 MG TABLET PO (20:30)
[2020-03-08 20:40] VITALS: O2SAT 92
[2020-03-09 03:00] VITALS: BP 140/69; PULSE 68; RESP 18; TEMP 37.2; O2SAT 93
[2020-03-09 07:06] VITALS: O2SAT 97
[2020-03-09 09:00] VITALS: BP 147/73; PULSE 76; RESP 18; TEMP 36.7; O2SAT 94
[2020-03-09] MEDS: Lactated Ringers 1,000 ML 100 ML IV ×2 (10:22→20:47)
[2020-03-09] MEDS: Polyethylene Glycol 3350 17 GM PACKET PO (10:22)
[2020-03-09] MEDS: Ensure Clear 120 ML Liquid PO ×3 (10:22→17:41)
[2020-03-09] MEDS: Enoxaparin 40 MG/0.4 ML Syringe SC (10:23)
[2020-03-09] MEDS: Pantoprazole Sodium 40 MG Tablet PO (10:23)
[2020-03-09] MEDS: Lisinopril 10 MG Tablet PO (10:24)
[2020-03-09] MEDS: Mirabegron 25 MG TAB.ER.24H PO (10:24)
[2020-03-09] MEDS: FLUoxetine 20 MG Capsule 40 MG PO ×2 (10:25→20:46)
--- NOTE | 2020-03-09 11:40 | PN_ITS ---
Patient Problems: Active and Suspected Problems (Last Reviewed 03/03/20 @ 05:[address] Duran Mcginnis MD) Nausea and vomiting (Acute) Dehydration (Acute) Gastritis (Acute) Reason for Visit: Adult failure to thrive Subjective: Patient is an 80-year-old lady admitted with intractable nausea and vomiting. Patient has undergone extensive work-up including gastric emptying study which was unremarkable. Patient hospital stay complicated by severe physical deconditioning, significant whole-body tremor, and hallucination. Objective: GENERAL: Significant tremors at rest HEENT: Atraumatic; EYES; Anicteric, Normal Conjunctiva NECK; supple, normal thyroid, RESPIRATORY: Diminished to auscultation CARDIOVASCULAR: Regular S1 S2, GI: soft, normoactive bowel sounds, : No Renal angle tenderness; EXTREMITIES: No edema, no clubbing, MUSCULOSKELETAL: no muscle waisting NEURO: Awake; no lateralizing signs. SKIN: No Rash PSYCH; Flat affect Vitals/I&O's: Vital Signs Temp Pulse Resp BP Pulse Ox 99.0 F 68 18 140/69 H 97 03/09/20 03:00 03/09/20 03:00 03/09/20 03:00 03/09/20 03:00 03/09/20 07:06 Oxygen Flow Rate (L/min) 2 Oxygen Delivery Method Room Air Weight: 45.2 kg Body Mass Index (BMI) 19.4 Intake and Output for Last 24 Hours 03/07/20 03/08/20 03/09/20 23:59 23:59 23:59 Intake Total 5095.00 / 5095.00 2710 / 2710 1200 / 1200 Output Total 2550 / 2550 3325 / 3325 900 / 900 Balance 2545.00 / 2545.00 -615 / -615 300 / 300 Laboratory Results 03/08/20 : Urine Color Yellow, Urine Clarity Clear, Urine pH 8.0, Ur Specific [place] 1.010, Urine Protein Negative, Urine Glucose (UA) Normal, Urine Ketones Negative, Urine Occult Blood 10 H, Urine Nitrite Negative, Urine Bilirubin Negative, Urine Urobilinogen Normal, Ur Leukocyte Esterase Negative, Urine RBC 0 SEEN, Urine WBC 0 SEEN, Ur Squamous Epith Cells 0 SEEN, Urine Bacteria 0 SEEN, Urine Mucus 0 SEEN Current Medications Acetaminophen (Tylenol) 650 mg PO Q6H PRN PRN PRN Reason: Pain Score 1-10/Temp > 100.7 F Last Admin: 03/08/20 20:29 Dose: 650 mg Documented by: Cholecalciferol (Vitamin D (25mcg)) 5,000 unit PO DAILY [facility] Last Admin: 03/09/20 10:24 Dose: 5,000 unit Documented by: Enoxaparin Sodium (Lovenox) 40 mg SC DAILY [facility] Last Admin: 03/09/20 10:23 Dose: 40 mg Documented by: Fluoxetine HCl (Prozac) 40 mg PO BID [facility] Last Admin: 03/09/20 10:25 Dose: 40 mg Documented by: Lactated Ringer's () 1,000 mls @ 100 mls/hr IV .Q10H [facility] Last Admin: 03/09/20 10:22 Dose: 100 mls/hr Documented by: Sodium Chloride () 250 mls @ 15 mls/hr IV .[id number] PRN PRN Reason: Saline Flush Lisinopril (Zestril) 10 mg PO DAILY [facility] Last Admin: 03/09/20 10:24 Dose: 10 mg Documented by: Lorazepam (Ativan) 0.5 mg PO Q8H PRN PRN PRN Reason: ANXIETY Melatonin (Melatonin) 3 mg PO QHS PRN PRN PRN Reason: INSOMNIA Last Admin: 03/08/20 20:30 Dose: 3 mg Documented by: Mirabegron (Myrbetriq) 25 mg PO DAILY [facility] Last Admin: 03/09/20 10:24 Dose: 25 mg Documented by: Nutritional Formula (Lactose Free) (Ensure Clear) 120 ml PO 4X/DAY [facility] Last Admin: 03/09/20 10:22 Dose: 120 ml Documented by: Ondansetron HCl (Zofran) 4 mg IV Q6H PRN PRN PRN Reason: NAUSEA/VOMITING Pantoprazole Sodium (Protonix) 40 mg PO DAILY [facility] Last Admin: 03/09/20 10:23 Dose: 40 mg Documented by: Polyethylene Glycol (Miralax) 17 gm PO DAILY [facility] Last Admin: 03/09/20 10:22 Dose: 17 gm Documented by: Sodium Chloride () 10 - 40 ml IV UD PRN PRN Reason: SALINE FLUSH Last Admin: 03/06/20 12:19 Dose: 20 ml Documented by: Medical Necessity - Tobacco Use Smoking Status: Never smoker Assessment/Plan All Active Problems (Last Reviewed 03/03/20 @ 05:[address] Duran Mcginnis MD) Nausea and vomiting (Acute) Dehydration (Acute) Gastritis (Acute) Chest pain (Resolved) Hypokalemia (Resolved) Patient is an 80-year-old lady admitted with intractable nausea and vomiting. Patient has undergone extensive work-up including gastric emptying study which was unremarkable. Patient hospital stay complicated by severe physical d econditioning, significant whole-body tremor, and hallucination. 1. Intractable nausea vomiting ?Suspected to be secondary to gastritis. Patient currently on PPI?Protonix. Underwent gastric emptying study which was unremarkable did discuss with patient's daughter to follow-up with PCP for referral to gastroenterology as outpatient for possible endoscopic evaluation 2. Tremors ?Per patient's daughter symptoms started about 8 weeks prior to patient's admission seen by Dr. Mckinley with neurology diagnosed with essential tremors patient was apparently on propranolol which was discontinued by PCP on account of adverse drug reactions (hypotension and bradycardia) and change to Sinemet. Did discuss with patient's daughter to follow-up with Dr. Mckinley upon discharge. 3. Hallucinations ?Thought to be secondary to medication induced patient was on SSRI which had been stopped. Restarted during patient hospitalization 4. Mild cognitive impairment ?Patient was on donezepil has since been discontinued since it was thought to be contributing to patient's delirium 5. Urinary retention ?Patient is on urinary antispasmodics Myrbetriq which may be contributing to patient's hallucination as well as urinary retention the suspected offending medication discontinued 6. DVT prophylaxis ?Lovenox Advance planning; did discuss with the patient and family) her daughter) regarding advanced directives as well as CODE STATUS. Did explain the various scenarios involved ( FULL CODE, DNR CCA, DNR CCA with no intubation, and DNR CC and what each meant) patient and family wants patient CODE STATUS to remain full code with CPR and intubation if warranted. Order was placed. Time spent on discussion 18 minutes. Active Medications Acetaminophen (Tylenol) 650 mg PO Q6H PRN PRN PRN Reason: Pain Score 1-10/Temp > 100.7 F Last Admin: 03/08/20 20:29 Dose: 650 mg Documented by: Cholecalciferol (Vitamin D (25mcg)) 5,000 unit PO DAILY [facility] Last Admin: 03/09/20 10:24 Dose: 5,000 unit Documented by: Enoxaparin Sodium (Lovenox) 40 mg SC DAILY [facility] Last Admin: 03/09/20 10:23 Dose: 40 mg Documented by: Fluoxetine HCl (Prozac) 40 mg PO BID [facility] Last Admin: 03/09/20 10:25 Dose: 40 mg Documented by: Lactated Ringer's () 1,000 mls @ 100 mls/hr IV .Q10H [facility] Last Admin: 03/09/20 10:22 Dose: 100 mls/hr Documented by: Sodium Chloride () 250 mls @ 15 mls/hr IV .[id number] PRN PRN Reason: Saline Flush Lisinopril (Zestril) 10 mg PO DAILY [facility] Last Admin: 03/09/20 10:24 Dose: 10 mg Documented by: Lorazepam (Ativan) 0.5 mg PO Q8H PRN PRN PRN Reason: ANXIETY Melatonin (Melatonin) 3 mg PO QHS PRN PRN PRN Reason: INSOMNIA Last Admin: 03/08/20 20:30 Dose: 3 mg Documented by: Mirabegron (Myrbetriq) 25 mg PO DAILY [facility] Last Admin: 03/09/20 10:24 Dose: 25 mg Documented by: Nutritional Formula (Lactose Free) (Ensure Clear) 120 ml PO 4X/DAY [facility] Last Admin: 03/09/20 10:22 Dose: 120 ml Documented by: Ondansetron HCl (Zofran) 4 mg IV Q6H PRN PRN PRN Reason: NAUSEA/VOMITING Pantoprazole Sodium (Protonix) 40 mg PO DAILY [facility] Last Admin: 03/09/20 10:23 Dose: 40 mg Documented by: Polyethylene Glycol (Miralax) 17 gm PO DAILY [facility] Last Admin: 03/09/20 10:22 Dose: 17 gm Documented by: Sodium Chloride () 10 - 40 ml IV UD PRN PRN Reason: SALINE FLUSH Last Admin: 03/06/20 12:19 Dose: 20 ml Documented by: Inpatient E&M: 86958 Subs Hosp L2 Procedures: 88559 Advncd Care Plan 30 Min
--- NOTE | 2020-03-09 12:42 | CASEMGMT ---
JUAN LUONG Note: Intro role of CM to patient's daughter Denise, who is here @ hospital and Ольга via phone. Ольга is bat boy/girl for her mother and will be back from vacation on Sunday. JUAN LUONG explained Hospice/Palliative Care @ their request and patient's care needs if she returns home with [facility]. After in depth discussion, daughters decided they prefer to have patient return home with [facility] (offered list/choices, but [facility] is their preference) SN, PT/OT and aide. They will contact [facility] after patient's daughter is home for a meeting so family can be involved. JUAN LUONG reviewed PT/OT notes and patient's current needs for mod/max assistance of 2 with almost all activity. Patient has a private duty client care representative M-F 9-5:30 and arrangements will be made to have second person available. Daughter Denise will be staying with patient on dc and states she will have another family member to assist overnight. Patient has bed that can elevate head, a lift chair and other equipment as listed on assessment. Daughter is getting a BSC. -daughters would like patient checked for oxygen prior to dc. They are concerned she may need this @ night as she has not been compliant with her Cpap. Daughter Ольга also asked about Speech therapy on dc. JUAN LUONG called and let Dr. Herrera know of concerns. Home oxygen testing to be completed prior to dc. -call to [facility]. SN/PT/OT/aide is ordered and start of care will be or Sunday of this week. Aldo JETTM
[2020-03-09 15:00] VITALS: BP 138/72; PULSE 78; RESP 18; TEMP 36.9; O2SAT 94
[2020-03-09 20:33] VITALS: BP 153/77; PULSE 74; RESP 18; TEMP 37; O2SAT 98
[2020-03-09] MEDS: MELATONIN 3 MG TABLET PO (20:47)
[2020-03-09] MEDS: Acetaminophen 325 MG Tablet 650 MG PO (20:47)
[2020-03-10 02:05] VITALS: BP 146/72; PULSE 64; RESP 16; TEMP 36.6; O2SAT 96
[2020-03-10] MEDS: Lactated Ringers 1,000 ML 100 ML IV (06:16)
[2020-03-10 06:21] LABS: Hematocrit 28.1 % (37-47); Hemoglobin 9.4 g/dL (12.0-15.0); Mean Corp Hgb Conc 33.5 g/dL (32-36); Mean Corpuscular Hgb 30.9 pg (27.0-32.0); Mean Corpuscular Volume 92.4 fL (81-99); Mean Platelet Vol. 10.1 fl (6.2-12.0); Platelet Count 175 K/mm3 (150-450); RBC Distribution Width CV 14.3 % (11.6-14.6); RBC Distribution Width SD 48.5 fl (35.1-43.9); Red Blood Count 3.04 M/mm3 (4.2-5.4); White Blood Count 6.4 K/mm3 (4.4-11.0)
[2020-03-10 06:45] LABS: Anion Gap 6 (5-15); BUN 6 mg/dL (7-18); BUN/Creat Ratio 11.4 RATIO (10-20); Calcium,Total 8.3 mg/dL (8.5-10.1); Chloride 106 mmol/L (98-107); Creatinine, Serum 0.53 mg/dL (0.55-1.02); EST Glomerular Filtration Rate 119 mL/min (>60); Est Glom Filt Rate - Afr Amer 144 mL/min (>60); Estimated Creatinine Clearance 32.02 ml/min; Glucose 92 mg/dL (74-106); Magnesium 1.4 mg/dL (1.6-2.6); Sodium Level 141 mmol/L (136-145)
[2020-03-10 08:07] VITALS: BP 163/85; PULSE 68; RESP 16; TEMP 36.9; O2SAT 100
[2020-03-10] MEDS: Enoxaparin 40 MG/0.4 ML Syringe SC (08:17)
[2020-03-10] MEDS: FLUoxetine 20 MG Capsule 40 MG PO (08:17)
[2020-03-10] MEDS: Pantoprazole Sodium 40 MG Tablet PO (08:17)
[2020-03-10] MEDS: Lisinopril 10 MG Tablet PO (08:18)
[2020-03-10] MEDS: Ensure Clear 120 ML Liquid PO ×2 (08:25→14:10)
--- NOTE | 2020-03-10 11:16 | DCINST_ITS ---
- Discharge Diagnoses Current Active Problems: Current Active and Chronic Problems (Last Reviewed 03/03/20 @ 05:[address] Duran Mcginnis MD) Nausea and vomiting (Acute) Dehydration (Acute) Gastritis (Acute) You will use the following diet at home:: Other - regular diet-total feed, small sips via straw, pills whole with purees Your food should be the consistency of: Puree Your liquids should be the consistency of: Regular/Thin Discharge Activity: Return to Normal Activity Weight Bearing Status: Weight bearing as tolerated Allergies/Adverse Reactions: Allergies No Known Allergies Allergy (Verified 01/12/20 16:00) Medications to take at Discharge Cholecalciferol (VIT D3) [Vitamin D3] 5,000 unit PO DAILY 02/17/15 Lisinopril [Zestril] 10 mg PO DAILY 02/17/15 fluoxetine 10 mg capsule 40 mg PO BID 09/11/18 Omeprazole 40 mg PO DAILY 08/06/19 Calcium Carbonate [Calcium] 600 mg PO BID 01/12/20 Donepezil HCl 10 mg PO QHS 03/02/20 Ondansetron [Zofran Odt] 4 mg PO Q4H PRN PRN 03/02/20 Fluoxetine [Prozac] 40 mg PO BID capsule 03/10/20 Polyethylene Glycol 3350 [Miralax] 17 gm PO DAILY packet 03/10/20 Propranolol HCl 5 mg PO BID #1 tablet 03/10/20 Tamsulosin HCl [Flomax] 0.4 mg PO DAILY #30 cap 03/10/20 buPROPion XL [Wellbutrin Xl] 150 mg PO DAILY #1 tablet.xl 03/10/20 The following prescriptions were given: Tamsulosin HCl [Flomax] 0.4 mg PO DAILY #30 cap Transmission Status: Pending to [facility] Propranolol HCl 5 mg PO BID #1 tablet buPROPion XL [Wellbutrin Xl] 150 mg PO DAILY #1 tablet.xl Primary Care Physician: Cuong Melton DO [Primary Care Provider] - Please follow up with your Primary Care Physician in: in 2 weeks Test Results: Test results from this visit will be discussed in further detail at your follow- up appointment, if applicable. Please Follow Up With: Hospice as directed
--- NOTE | 2020-03-10 11:17 | CASEMGMT ---
Social Work Note SW received call from Shirley at [facility] stating pt's daughter had called and made Hospice referral. Shirley asked for this worker to speak with physician to determine if pt is Hospice appropriate. Physician updated. Noemy Lal DIPPER FISH, PRESS MACHINE FEEDER
--- NOTE | 2020-03-10 12:00 | CASEMGMT ---
Addendum entered by Noemy Lal 03/10/20 15:58: FERNANDO spoke with [facility], base rate for ambulance transport home is $500 and then $17.50 per mile. Ольга updated. Original Note: Social Work Note FERNANDO updated that pt is Hospice appropriate. FERNANDO placed a call to Shirley at [facility] and updated her. FERNANDO in to speak with pt's daughter Ольга, updated Ольга on Hospice referral. Ольга states understanding, gave this worker permission to fax referral to [facility]. Ольга states that she will take pt home with [facility] and see how pt does and if pt doesn't improve, she will call Hospice. Ольга states transportation will need to be arranged and prefers cot transport. FERNANDO explained that transportation can be arranged via cot but cannot confirm if insurance will cover costs. Ольга states understanding. FERNANDO asked financial secretary to arrange transportation. FERNANDO placed a call to [facility] and spoke with Shirley, updated Shirley that pt will be going home today with [facility]. Plan: Home with HHC today Noemy Lal COMPUTER SYSTEMS INFORMATION DIRECTOR, DINKEY LOCOMOTIVE OPERATOR
--- NOTE | 2020-03-10 12:07 | PCA ---
set up for transportation to go home cot can be here at 1500
[2020-03-10 14:03] VITALS: BP 141/77; PULSE 75; RESP 16; TEMP 36.7; O2SAT 98
--- NOTE | 2020-03-10 15:19 | CASEMGMT ---
Social Work Referral packet faxed to [facility] as pt dgt is requesting possible hospice referral once pt returns home. LIAN Dutton
--- NOTE | 2020-03-11 15:32 | CASEMGMT ---
JUAN LUONG Discharge Follow-up Phone Call: FOX: 14 Strata: 4 Call Date: 03/11/2020 Discharge Date: 03/10/2020 Time of Call: 1530 Duration: 1 min Admitting Diagnosis: Acute Gastroenteritis RN CHERISE attempted to complete follow-up phone call after recent hospitalization. No answer, voice message left with return contact information.
--- NOTE | 2020-03-12 09:07 | PCM.DC.SUM ---
Discharge Date and Diagnosis Date of Admission: 03/03/20 Date of Discharge: 03/10/20 - Primary Discharge Diagnosis Acute Problems: #1 intractable nausea and vomiting-etiology unclear #2 cognitive impairment-probably secondary to Alzheimer's dementia #3 urinary retention-etiology unclear #4 hypokalemia #5 anemia-etiology unclear #6 constipation #7 generalized debility secondary to multiple medical problems and advanced age #8 essential tremor - Secondary Discharge Diagnosis Chronic Problems: Chronic Problems (Last Reviewed 03/03/20 @ 05:[address] Duran Mcginnis MD) H/O hernia repair (Chronic) 2008 H/O detached retina repair (Chronic) 2006 and 2007 Hx of appendectomy (Chronic) 1960's HTN (hypertension) (Chronic) Depression (Chronic) Hospital Course and Treatment Operations: None Procedures: None Summary of Care Provided: The patient is a 80 year old F patient was seen in the emergency room at [facility] after being brought in by her family due to nausea and vomiting. Patient had decreased oral intake secondary to nausea. Lab work and CT of the abdomen and pelvis was obtained, CT of the abdomen was remarkable for stool throughout the colon but otherwise did not show any acute pathology. Lab work showed an AST to be mildly elevated, lipase was normal, CBC showed no leukocytosis, BUN and creatinine were normal, urinalysis showed no evidence of infection. There is a mild anemia noted on her CBC. Patient was admitted to [place] [address] and given IV fluids, patient had hallucination and cognitive impairment that was evident during her admission, patient's family confirmed that she had cognitive impairment at home. Patient's urine culture was negative. Patient was seen by PT and OT, family did not want the patient to go to a half-way facility. Patient's overall medical condition was poor during her hospitalization, discussions were carried out with the family and the family decided at the time of discharge that patient would follow-up at home with hospice. Family contacted hospice directly. On 03/10/2020, patient was seen and examined: On examination she appeared debilitated and weak, she does not appear to be in any distress. Vital signs as documented. Skin warm and dry and without overt rashes. Neck without JVD, thyroid appears normal, trachea is midline, neck is supple. Lungs clear, normal air movement was noted. Heart exam notable for regular rhythm, normal sounds and absence of murmurs, rubs or gallops. Abdomen unremarkable and without evidence of organomegaly, masses, or abdominal aortic enlargement, bowel sounds are present in all 4 quadrants, no abdominal tenderness was noted. Extremities nonedematous, no cyanosis was noted, no clubbing was noted. Neuro: Cranial nerves II through XII are grossly intact, no focal motor deficits were noted, sensation to light touch and pinprick is intact, motor exam 5/5 throughout. Psych: Patient is somnolent, she responds to simple questions appropriately but is otherwise confused. Patient was discharged in stable condition on 03/10/2020, patient's outlook however was guarded due to her declining overall health status. Again she will follow-up with hospice as an outpatient - Physical Exam Vitals/I&O's: Vital Signs Temp Pulse Resp BP Pulse Ox 98.1 F 75 16 141/77 H 98 03/10/20 14:03 03/10/20 14:03 03/10/20 14:03 03/10/20 14:03 03/10/20 14:03 Oxygen Flow Rate (L/min) 2 Oxygen Delivery Method Room Air Weight: 45.2 kg Body Mass Index (BMI) 19.4 Intake and Output for Last 24 Hours 03/10/20 03/11/20 03/12/20 23:59 23:59 23:59 Intake Total 1731.66 / 1731.66 Output Total 250 / 250 Balance 1481.66 / 1481.66 Microbiology Past 72 Hours 03/08/20 17:40 Urine, Catheterized Urine Culture - Final Culture exhibits no growth. Discharge Activity: Return to Normal Activity Weight Bearing Status: Weight bearing as tolerated Home Medications: Medications to take at Discharge Cholecalciferol (VIT D3) [Vitamin D3] 5,000 unit PO DAILY 02/17/15 Lisinopril [Zestril] 10 mg PO DAILY 02/17/15 fluoxetine 10 mg capsule 40 mg PO BID 09/11/18 Omeprazole 40 mg PO DAILY 08/06/19 Calcium Carbonate [Calcium] 600 mg PO BID 01/12/20 Donepezil HCl 10 mg PO QHS 03/02/20 Ondansetron [Zofran Odt] 4 mg PO Q4H PRN PRN 03/02/20 Fluoxetine [Prozac] 40 mg PO BID cap 03/10/20 Polyethylene Glycol 3350 [Miralax] 17 gm PO DAILY packet 03/10/20 Propranolol HCl 5 mg PO BID #1 tab 03/10/20 Tamsulosin HCl [Flomax] 0.4 mg PO DAILY #30 cap 03/10/20 buPROPion XL [Wellbutrin Xl] 150 mg PO DAILY #1 tablet.xl 03/10/20 Following Prescriptions Were Given to Patient: Tamsulosin HCl [Flomax] 0.4 mg PO DAILY #30 cap Transmission Status: Received by [facility] Propranolol HCl 5 mg PO BID #1 tab buPROPion XL [Wellbutrin Xl] 150 mg PO DAILY #1 tablet.xl Primary Care Physician: Cuong Melton DO [Primary Care Provider] - Please follow up with your Primary Care Physician in: in 2 weeks Please Follow Up With: Hospice as directed Please Follow Up With: Cuong Melton DO When: 2 weeks Disposition: Home with Hospice Minutes spent on discharge:: 32 Patient Condition:: Stable Medical Necessity - Tobacco Use Smoking Status: Never smoker Meaningful Use Info Meaningful Use Diagnoses (Choose all that apply): None applicable Inpatient E&M: 81589 Disch Hosp
== END 2020-03-10 16:00 | disposition home health service (06) | DRG 392 ==
LOC: ED 03-03 00:13 → MS3 03-03 00:23
PROVIDERS: Internal Medicine; Admitting Provider Hospitalist; Emergency Provider Emergency Medicine; PCP Family Medicine; Visit Provider Internal Medicine
DX: K29.00 Acute gastritis without bleeding (principal); R44.3 Hallucinations, unspecified; K59.00 Constipation, unspecified; E86.0 Dehydration; R62.7 Adult failure to thrive; I10 Essential (primary) hypertension; R29.810 Facial weakness; G25.0 Essential tremor; E87.6 Hypokalemia; R33.9 Retention of urine, unspecified; T50.995A Adverse effect of other drugs, medicaments and biological substances, initial encounter; G30.9 Alzheimer's disease, unspecified; F02.80 Dementia in other diseases classified elsewhere, unspecified severity, without behavioral disturbance, psychotic disturbance, mood disturbance, and anxiety; K21.9 Gastro-esophageal reflux disease without esophagitis; F32.9 Major depressive disorder, single episode, unspecified; Z79.899 Other long term (current) drug therapy
CPT/HCPCS: 36415; 74176; 78264; 80048; 80053; 81001; 82962; 83690; 83735; 84132; 85025; 85027; 87086; 87635; 92610; 97110; 97116; 97162; 97166; 97530; 97535; 97802; 99285; A9541; C9803; J7030; J7040; J7120; P9612; A4216; J2405; U0003